=== PATIENT | male | born 1985 ===

== ENCOUNTER 2020-08-19 10:04 | Emergency (ER) | payer OTHER, SELFPAY ==
[2020-08-19 10:53] VITALS: BP 168/100; PULSE 85; RESP 17; TEMP 36.4; O2SAT 97; BMI 31.0
--- NOTE | 2020-08-19 10:55 | XR_ITS ---
EXAMINATION: XR KNEE, RIGHT CLINICAL INFORMATION: Knee pain and buckling. COMPARISON: Radiographs right knee 07/08/2020 TECHNIQUE: Four views of the right knee. FINDINGS: There is a large suprapatellar effusion again seen. Hoffa's fat pad appears normal. There is no fracture, dislocation, destructive process. Bony mineralization is normal. There is no interval joint narrowing or erosive change or chondrocalcinosis. XR/XR knee RT 4V IMPRESSION: Large suprapatellar effusion similar to prior study 07/08/2020. No acute bony abnormality. No interval joint narrowing or destructive process.
--- NOTE | 2020-08-19 11:04 | ED_ITS ---
HPI - Extremity Injury (Lower) General Chief Complaint: Extremity Injury, Lower Stated Complaint: knee pain Time Seen by Provider: 08/19/20 10:55 Source: patient Mode of arrival: ambulatory History of Present Illness HPI Narrative: 34-year-old male presenting to ED complaining right knee pain x1 month. Reports pain worsening with knee giving out multiple times, causing him to lose balance. Reports believes injured knee at work when jumping off object. Denies direct trauma falls or injury to knee, numbness, tingling, weakness MD complaint: knee injury Related Data Home Medications Medication Instructions Recorded Confirmed methotrexate sodium 2.5 mg tablet 2.5 mg PO QWEEK 08/14/20 Previous Rx's Medication Instructions Recorded folic acid 1 mg tablet 1 mg PO DAILY 30 Days #30 tab 08/14/20 acetaminophen [Tylenol Extra 500 mg PO Q6H PRN #20 tab 08/19/20 Strength] diclofenac sodium 2 g TOPICAL QID 7 Days #100 g 08/19/20 Allergies Allergy/AdvReac Type Severity Reaction Status Date / Time penicillin V Allergy Unknown rash Unverified 04/16/20 00:00 Penicillins [PENICILLINS] Allergy Unknown RASH Verified 08/19/20 10:55 Review of Systems Review of Systems: Constitutional: No Weight loss, No Fever, No Chills Musculoskeletal: +joint pain, No Myalgias, No Joint Swelling Skin: No Skin Lesions, No rash Neuro: No Weakness, No Numbness, No Paresthesias Yes all other systems are reviewed and are negative [facility] Past Medical History Attestation statement: The following information was validated with the patient. Medical History (Updated 08/19/20 @ 12:29 by TANIYA Esqueda) No known health problems Social History Social History Advance Directives: No Advance Directives Information Provided: No Physical Exam Vital Signs: Vital Signs: Vital Signs Temp Pulse Resp BP Pulse Ox 08/19/20 10:53 97.5 F 85 17 168/100 H 97 Body Mass Index 31.0 Const: General: cooperative and healthy appearing Orientation/consciousness: patient oriented x3 Limitations: no limitations HENMT: Head: Yes normal to inspection Ears: hearing grossly normal bilaterally General nose exam: Normal external nose present Face and sinus: Yes normal facial exam Eyes: General: appearance normal, both eyes and all related structures EOM: EOMs intact bilaterally Neck: Neck: Yes normal visual inspection Resp: Effort & Inspection: normal respiratory effort Cardio: Peripheral pulses: Peripheral pulses 2+ throughout Skin: Rashes: no rashes Wounds: no wounds Neuro: General: patient oriented x3 Gait exam (Neuro): Normal gait present Extrem: Right lower extremity: normal to inspection and knee Details: tenderness and abnormal ROM ( decreased range of motion secondary to pain) Course Course Course Narrative: -- x-ray showing large suprapatellar effusion similar to prior study in 07/08/2020. 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 Discussed likely need MRI MDM - Extremity Injury (Lower) MDM Narrative Medical decision making narrative: on exam hypertensive, NAD, no deformity.+ttp greater medial aspect with decreased ROM secondary to pain. NV intact. likely meniscal/ligament or tendon injury. Low concern for fracture /dislocation Discharge Plan Discharge Clinical Impression: Knee effusion Qualifiers: Laterality: right Qualified Code(s): M25.461 - Effusion, right knee Patient Disposition: Home, Self-Care Additional Instructions: your x-ray showed a joint effusion, similar to prior x-rays in June You need to follow-up with your primary care doctor and orthopedic, likely need an MRI to evaluate your ligaments/tendon/Meniscus take Tylenol /Motrin at home for pain /swelling diclofenac gel is a topical anti-inflammatory/ pain medication, use as prescribed Ice and elevate your knee Avoid excessive bending / running if pain persists worsens, or becomes unbearable return to the ED Prescriptions: New acetaminophen [Tylenol Extra Strength] 500 mg tablet 500 mg PO Q6H PRN (Reason: pain or fever) Qty: 20 RF: 0 diclofenac sodium 1 % gel 2 g topical QID 7 Days Qty: 100 RF: 0 No Action folic acid 1 mg tablet 1 mg PO DAILY 30 Days Qty: 30 RF: 11 methotrexate sodium 2.5 mg tablet 2.5 mg PO QWEEK RF: 0 Referrals: Nelson Hernández MD [Physician] - 2 days ( you likely need an MRI) Print Language: Latvian
== END 2020-08-19 12:57 | disposition home or self-care (01) ==
PROVIDERS: Emergency Provider Emergency Medicine; PCP Internal Medicine
DX: M25.461 Effusion, right knee (principal); Z79.899 Other long term (current) drug therapy
CPT/HCPCS: 73564; 99282; 99283

== ENCOUNTER → 2020-08-30 09:18 | Outpatient (BNVA) | payer OTHER, SELFPAY | PROVIDERS: PCP Internal Medicine; Referring Provider Internal Medicine; Visit Provider Orthopaedic Surgery | DX: Z76.89 Persons encountering health services in other specified circumstances (principal) ==

== ENCOUNTER 2020-09-05 11:05 | Outpatient (REF) | payer OTHER, SELFPAY ==
--- NOTE | 2020-09-05 11:07 | MR_ITS ---
EXAMINATION: MR KNEE WITHOUT CONTRAST, RIGHT CLINICAL INFORMATION: Right knee pain and swelling COMPARISON: Radiographs 08/19/2020 TECHNIQUE: MRI of the knee without contrast was performed using routine sequences on a high-field scanner. FINDINGS: MENISCI: Medial Meniscus: Mild ill-defined tearing along the periphery of the posterior horn. Otherwise intact. Lateral Meniscus: Intact LIGAMENTS: Cruciate: Complete or near-complete tear/avulsion of the ACL at the femoral insertion. The posterior cruciate ligament appears intact. Collateral: Intact EXTENSOR MECHANISM: Intact ARTICULAR CARTILAGE/BONE: Patellofemoral Compartment: Normal Medial Compartment: Normal Lateral Compartment: Mild impaction bone bruises of the tibia posteriorly and the weightbearing femoral condyle with no chondral defects. JOINT FLUID AND BURSAE: Small joint effusion. MR/MR knee RT wo con IMPRESSION: 1. Complete or near-complete tear/avulsion of the anterior cruciate ligament at its femoral insertion. Mild impaction bone bruises of the lateral tibia posteriorly and the weightbearing aspect of the lateral femoral condyle with a small joint effusion. 2. Mild irregular tearing along the periphery of the posterior horn of the medial meniscus. Menisci appear otherwise intact.
== END 2020-09-05 11:06 | disposition home or self-care (01) ==
LOC: HO.MRI 11:05
PROVIDERS: Visit Provider Orthopaedic Surgery
DX: M25.361 Other instability, right knee (principal); M25.461 Effusion, right knee
CPT/HCPCS: 73721

== ENCOUNTER → 2020-09-24 12:07 | Outpatient (BNVA) | payer OTHER, SELFPAY | PROVIDERS: PCP Internal Medicine; Visit Provider Orthopaedic Surgery | DX: Z76.89 Persons encountering health services in other specified circumstances (principal) ==

== ENCOUNTER → 2020-10-09 15:48 | Outpatient (BNVA) | payer OTHER, SELFPAY | PROVIDERS: PCP Internal Medicine; Referring Provider Internal Medicine; Visit Provider Student in an Organized Health Care Education/Training Program | DX: Z76.89 Persons encountering health services in other specified circumstances (principal) ==

== ENCOUNTER → 2020-10-31 12:20 | Outpatient (BNVA) | payer OTHER, SELFPAY | PROVIDERS: PCP Internal Medicine; Visit Provider Physician Assistant | DX: Z76.89 Persons encountering health services in other specified circumstances (principal) ==

== ENCOUNTER 2020-11-04 12:44 | Outpatient (REF) | payer OTHER, SELFPAY ==
[2020-11-04 13:31] LABS: MANUAL DIFF FLAG NO
[2020-11-04 13:37] LABS: Basophils Percent Auto 0.3 % (0-2); Eosinophils Absolute Auto 0.1 X10*3/uL (0.0-0.4); Eosinophils Percent Auto 0.9 % (0-4); Hematocrit 46.3 % (42-52); Hemoglobin 15.3 g/dl (14.0-18.0); Imm Gran Abs Auto 0.03 X10*3/uL (0.00-0.03); Imm Gran Pct Auto 0.3 % (0.0-0.4); Lymphocytes Absolute Auto 1.8 X10*3/uL (1.2-4.9); Lymphocytes Percent Auto 16.8 % (20-40); Mean Corpuscular Hemoglobin 31.9 pg (27.0-33.0); Mean Corpuscular Volume 96.7 fL (80-98); Mean Platelet Volume 10.1 fL (9.4-12.4); Monocytes Absolute Auto 0.8 X10*3/uL (0.1-1.2); Neutrophils Absolute Auto 7.7 X10*3/uL (2.0-8.3); Neutrophils Percent Auto 73.7 % (45-73); Platelet Count 286 X10*3/uL (160-400); Red Blood Count 4.79 X10*6/uL (4.60-5.80); Red Cell Distribution Width 12.3 % (11.0-16.0); White Blood Count 10.4 X10*3/uL (4.8-10.8)
[2020-11-04 14:03] LABS: Alanine Aminotransferase 18 U/L (0-40); Albumin Level 4.6 g/dL (3.5-5.0); Alkaline Phosphatase 89 U/L (39-117); Anion Gap 12 (12-20); Aspartate Amino Transferase 19 U/L (5-37); Blood Urea Nitrogen 15 mg/dL (9-16); C Reactive Protein 1.45 mg/dL (< or = 0.50); Calcium 9.5 mg/dL (8.4-10.2); Carbon Dioxide 29 mmol/L (22-29); Chloride 103 mmol/L (96-108); Estimated Glomerular Filt Rate > 60; Glucose Random 102 mg/dL (60-115); Potassium 4.7 mmol/l (3.3-5.1); Sodium 139 mmol/L (135-145); Total Protein 7.7 g/dL (6.5-8.0)
[2020-11-04 14:30] LABS: Erythrocyte Sedimentation Rate 4 MM/HR (0-15)
== END 2020-11-04 12:45 | disposition home or self-care (01) ==
LOC: HO.LAB 12:44
PROVIDERS: PCP Internal Medicine; Visit Provider Student in an Organized Health Care Education/Training Program
DX: M05.79 Rheumatoid arthritis with rheumatoid factor of multiple sites without organ or systems involvement (principal); R76.0 Raised antibody titer; Z79.899 Other long term (current) drug therapy
CPT/HCPCS: 36415; 80053; 85025; 85652; 86140

== ENCOUNTER 2020-11-07 06:08 | Day surgery (SDC) | payer OTHER, SELFPAY ==
[2020-11-01 13:33] VITALS: BMI 30.2
--- NOTE | 2020-11-06 10:22 | HO.ANESPROP2 ---
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 Father No problems noted. Surgical History Surgical History Hx of exploratory laparotomy S/P hardware removal S/P ORIF (open reduction internal fixation) fracture Social History Social History Are you a primary wild animal caretaker to a significant other at home: No Do you presently have visiting nurse or other home services: No Smoking Status: Never smoker Use of substances other than those prescribed or required for medical reasons: No Have you been hit, kicked, punched, or otherwise hurt by someone within the past year? 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 Meds Allergies Allergy/AdvReac Type Severity Reaction Status Date / Time Penicillins [PENICILLINS] Allergy Unknown RASH Verified 10/31/20 12:38 morphine AdvReac Itching Verified 11/07/20 06:29 Home Medications Medication Instructions Recorded Confirmed Type methotrexate sodium 2.5 mg tablet 2.5 mg PO QWEEK 08/14/20 11/01/20 History Exam Exam Date and Time: November 06, 2020 1022 Height,Weight and Vital Signs: Height 5 ft 9 in Weight 92.986 kg Assessment and Plan Assessment Anesthesia Assessment: Chart Reviewed Documented by User: Romeo Jackson MD 11/07/20 08:43 FORMERLY [facility], [facility] Past Medical History Medical History Arthritis Asthma GERD (gastroesophageal reflux disease) History of febrile seizure 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 Father No problems noted. Surgical History Surgical History Hx of exploratory laparotomy S/P hardware removal S/P ORIF (open reduction internal fixation) fracture Social History Social History Are you a primary wild animal caretaker to a significant other at home: No Do you presently have visiting nurse or other home services: No Smoking Status: Never smoker Use of substances other than those prescribed or required for medical reasons: No Have you been hit, kicked, punched, or otherwise hurt by someone within the past year? 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 Meds Allergies Allergy/AdvReac Type Severity Reaction Status Date / Time Penicillins [PENICILLINS] Allergy Unknown RASH Verified 10/31/20 12:38 morphine AdvReac Itching Verified 11/07/20 06:29 Home Medications Medication Instructions Recorded Confirmed Type methotrexate sodium 2.5 mg tablet 2.5 mg PO QWEEK 08/14/20 11/01/20 History Exam Airway Mallampati Class: I TM Dist: >3cm Neck ROM: Full Loose/Missing/Broken Teeth: No Heart: RRR Lungs: NL Other: AO Assessment and Plan Assessment Anesthesia Assessment: Anesthesia Plan Discussed and Chart Reviewed Final Anesthetic Review NPO: Yes ASA Class: II Final Preanesthetic Review: No Changes in Pt Med Stat, Meds/Allgs Chart Reviewed, Consent Obtained/Reviewed and Anes Risks/Benef Reviewed Patient Risk: Intermediate Procedure Risk: Low Anesthetic Plan Anesthetic Plan: GA and Regional Block Disposition: Standard PACU
[2020-11-07 06:18] VITALS: BP 128/89; PULSE 75; RESP 18; TEMP 36.1; O2SAT 98
[2020-11-07] MEDS: ceFAZolin Sodium/Dextrose,Iso 2 GM/50 ML PIGGYBACK IV (06:51)
[2020-11-07] MEDS: Lactated Ringers 1,000 ML 100 ML IVCONT (06:51)
--- NOTE | 2020-11-07 07:34 | MHC.SHP ---
Pre-Procedural Eval Section A The patient is an INPATIENT: No Changes since office visit: No Cold of Flu in the past 2 weeks, No New Medical Problems, No Changes in Medication and No Patient answered all questions The History & Physical has been completed within 30 days and I have reviewed it.: Yes Section B Chief Complaint: internal derangement of right knee Allergies: Allergies Allergy/AdvReac Type Severity Reaction Status Date / Time Penicillins [PENICILLINS] Allergy Unknown RASH Verified 10/31/20 12:38 morphine AdvReac Itching Verified 11/07/20 06:29 Plan I have reviewed the history and physical and performed a pertinent physical examination on my patient. No changes have occurred unless specified.
[2020-11-07 09:35] VITALS: BP 130/87; PULSE 86; RESP 16; TEMP 36.1; O2SAT 99
--- NOTE | 2020-11-07 09:37 | PM.PRCOR ---
Brief Operative Note Date of procedure: 11/07/20 Pre-op diagnosis: ACL DEFICIENT RIGHT KNEE Post-op diagnosis: same Procedure: RIGHT ACL RECONSTRUCTION WITH ALLOGRAFT Anesthesia: GLMA and regional Surgeon: Nelson Hernández Power Plant Operator Apprentice: Jose Peña Estimated blood loss (mL): 0 Condition: stable Disposition: PACU
[2020-11-07 09:40] VITALS: BP 123/84; PULSE 77; RESP 18; O2SAT 97
[2020-11-07 09:45] VITALS: BP 124/87; PULSE 80; RESP 18; O2SAT 98
[2020-11-07 09:50] VITALS: BP 128/83; PULSE 72; RESP 18; O2SAT 100
[2020-11-07] MEDS: Acetaminophen 325 MG TABLET 650 MG PO (09:56)
[2020-11-07 10:00] VITALS: BP 128/83; PULSE 65; RESP 18; TEMP 36.2; O2SAT 100
--- NOTE | 2020-11-07 10:34 | HO.POSTANES ---
Post Anesthesia Evaluation Post Anesthesia Evaluation Vital Signs: Vital Signs Temp Pulse Resp BP Pulse Ox 11/07/20 10:00 97.2 F 65 18 128/83 100 11/07/20 09:50 72 18 128/83 100 11/07/20 09:45 80 18 124/87 98 11/07/20 09:40 77 18 123/84 97 11/07/20 09:35 96.9 F 86 16 130/87 99 11/07/20 06:18 97.0 F 75 18 128/89 98 Anesthesia: Nerve Block and General LMA Mental Status: Awake Pain Control: Satisfactory Nausea/Vomiting: None Hydration: Adequate Anesthesia-Related Issues: No Anes. Related Issues
--- NOTE | 2020-11-12 10:36 | OP_ITS ---
SURGEON: Nelson Hernández MD PREOPERATIVE DIAGNOSIS: Anterior cruciate ligament deficient, right knee. POSTOPERATIVE DIAGNOSIS: Anterior cruciate ligament deficient, right knee. PROCEDURE PERFORMED: Right ACL reconstruction with bone patellar tendon allograft. ESTIMATED BLOOD LOSS: COMPLICATIONS: ANESTHESIA: ASSISTANTS: TANIYA Urrutia. SPECIMENS: CLINICAL NOTE: This gentleman had suffered an injury to his knee and subsequently had ongoing instability related to an ACL tear. Therefore, after explaining the risks, benefits, and alternatives and answering all the questions, it was mutually agreed upon to carry out the following procedure. MOTION: Full range of motion. STABILITY: Positive Richard's and pivot shift. Collateral ligaments intact. DESCRIPTION OF PROCEDURE: PREPARATION: GA, standard technique, tourniquet to 300 mmHg for 39 minutes. SURGICAL TIME-OUT: The patient was identified, procedure confirmed, site confirmed. Medical analogy and history reviewed. Preoperative antibiotics were given. Standard DVT prophylaxis was in place. All other items were discussed and agreed upon. INCISION: Superolateral, inferolateral, inferomedial, stab incision, proximal, medial, tibial incision for tibial tunnel and graft insertion. SYNOVIUM: Normal. SYNOVIAL FLUID: Clear. MEDIAL COMPARTMENT: Medial meniscus, tibial and femoral articular surfaces, popliteus tendon all stable and intact. LATERAL COMPARTMENT: Lateral meniscus, tibial and femoral articular surfaces, popliteus tendon all stable and intact. ANTERIOR COMPARTMENT: Medial and lateral gutters clear. Suprapatellar pouch clear. Patella and femoral sulcus, articular surfaces intact. INTERCONDYLAR NOTCH: The ACL was scarred back to the PCL. Using a combination of the Ultra-Cut and the ArthroCare wand, the remnant of the ACL was removed. The PCL was identified. The [id number] position was cleared until it was easily identified posteriorly. Using the Arthrex tibial guide in standard fashion, the tibial tunnel was established without any incident. It was rasped and cleaned of soft tissue and bone. Simultaneous to the tibial tunnel, preparation of the graft was prepared with 102 mm graft with one in 30 mm and other one 27 mm drill holes were made. The longer head had Maxon sutures for the femoral side and Ti-Cron sutures were placed on the opposite side and then the graft was protected. Turning our attention back to the knee itself, the [id number] position was identified at the approximate 9:30 position and the guidewire was drilled out the anterolateral cortex. The 10 mm headed reamer was then used over the guidewire. A footprint was made with good posterior wall, it was then reamed out to a 35 mm depth. The notch was then made. The bony fragments were all removed. The graft was brought up on the table and the Maxon suture was placed through the eyes of Beath needle. The graft was then transferred through the tibial tunnel across the PCL into the femoral tunnel without incident. Turning our attention to the interference screw, the Nitinol wire was used through the inferomedial portal. In a standard fashion, an 8 x 25 mm BioScrew was inserted. With the graft in tension, it was cycled a number of times with the knee flexed approximately 15 degrees. With grafted tension, an 8 x 25 mm BioScrew was inserted with excellent purchase. The knee was then easily placed through full range of motion, had negative Richard and pivot shift, and therefore proceeded to closure. The tourniquet was let down. Total tourniquet time 39 minutes. The incisions were approximated using interrupted 2-0 Dexon. Skin was closed with Dermabond, Steri-Strips, and sterile dressing. The knee was placed in a knee brace. The patient's anesthesia was then reversed. They were transferred to the room bed and then taken to recovery room in good condition. Preoperatively, they also received a regional block femoral as well as saphenous. There was no blood loss, no complications. MD STUART Gage/CECILIOL / [id number]
== END 2020-11-07 10:55 | disposition home or self-care (01) ==
PROVIDERS: PCP Internal Medicine; Visit Provider Orthopaedic Surgery
PROC: (CPT 29888; principal; 2020-11-07 07:30)
DX: S83.511A Sprain of anterior cruciate ligament of right knee, initial encounter (principal); X58.XXXA Exposure to other specified factors, initial encounter; Y93.9 Activity, unspecified; Y92.9 Unspecified place or not applicable; Y99.8 Other external cause status; D68.62 Lupus anticoagulant syndrome; M06.9 Rheumatoid arthritis, unspecified; M19.90 Unspecified osteoarthritis, unspecified site; J45.909 Unspecified asthma, uncomplicated; Z79.899 Other long term (current) drug therapy; Z88.8 Allergy status to other drugs, medicaments and biological substances
CPT/HCPCS: 29888; C1713; C1763; C1769; J0690; J1100; J2250; J2405; J3010

== ENCOUNTER → 2020-11-20 13:16 | Outpatient (BNVA) | payer OTHER, SELFPAY | PROVIDERS: PCP Internal Medicine; Visit Provider Physician Assistant | DX: Z76.89 Persons encountering health services in other specified circumstances (principal) ==

== ENCOUNTER → 2020-12-24 13:58 | Outpatient (BNVA) | payer OTHER, SELFPAY | PROVIDERS: PCP Internal Medicine; Visit Provider Orthopaedic Surgery ==

== ENCOUNTER → 2021-01-24 13:44 | Outpatient (BNVA) | payer OTHER, SELFPAY | PROVIDERS: PCP Internal Medicine; Visit Provider Student in an Organized Health Care Education/Training Program ==

== ENCOUNTER → 2021-02-04 14:30 | Outpatient (BNVA) | payer OTHER, SELFPAY | PROVIDERS: PCP Internal Medicine; Visit Provider Orthopaedic Surgery ==

== ENCOUNTER 2021-02-20 16:00 | Outpatient (RCR) | payer OTHER, MEDICAID, SELFPAY ==
--- NOTE | 2020-11-11 17:04 | MHC.PT.EP ---
[facility] [place] Office [place] Office [place] Office [address] Celeste [address] [phone] F: [phone] F: [phone] F: [phone] F: [phone] Physical Therapy Plan of Care Date of Evaluation: 11/11/20 Date of Surgery: 11/07/20 Diagnosis: INTERNAL DERANGEMENT R KNEE. RIGHT ACL RECONSTRUCTION WITH ALLOGRAFT PER DR CHUN ON 11/07/20. Assessment: Pt IS 35 YO M REFERRED TO PT FROM [facility] (G[facility]AHAN) S/P R ACL RECONSTRUCTION WITH ALLOGRAFT PER DR CHUN ON 10/28/19 (Pt HAD INJURED KNEE MONTHS EARLIER GETTING OUT OF TRUCK AT WORK). PRESENTS WITH POOR KNEE AND ANKLE ROM, POOR GT PATTERN (NWB WITH CRUTCHES), SIGNIF LE SWELLING ON R, DECREASED SENSATION TOP OF R FOOT WITH C/O LOWER LEG PARESTHESIA, PAIN AND LIMITED LE STRENGTH. 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 HAS PO FU WITH ORTHO ON WEDNESDAY (11/14/20). SHOULD BENEFIT FROM PT TO ADDRESS THESE ISSUES Frequency and Duration: The patient will be seen 3X/WK RECOMMENDED BUT NEEDS 2X/WK FOR TRANSPORT Short Term Goals: AT 4 WKS: 1.R KNEE ROM 0-115 2. HEP BEGUN (PER PROTOCOL) 3. DECREASED R LE SWELLING NOTED 4. GOOD QUAD CONTRACTION NOTED Visual Lead Goals: AT 12 WKS 1. FULL ROM R KNEE 2. GOOD GT PATTERN WITHOUT AD/BRACE 3. PAIN R KNEE AT WORST 2/10 WITH ADLS 4. I HEP WITH DC EX PLAN 5. ?RTW PER MD ORDERS Treatment Plan: Modalities to reduce pain, spasms and effusion. Manual therapy to restore motion and function. Therapeutic exercise to improve strength and flexibility. Neuromuscular re-education for posture and balance. Therapeutic activities to return to functional activities of daily living. Electronically signed by: ELIEZER PORTER PT Please sign and return to therapist. Thank you for your referral.
--- NOTE | 2021-03-04 10:40 | MHC.PT.DC ---
[facility] [place] Office [place] Office [place] Office [address] Jacki Celeste [address] [phone] F: [phone] F: [phone] F: [phone] F: [phone] Physical Therapy Discharge Report Diagnosis: INTERNAL DERANGEMENT R KNEE. RIGHT ACL RECONSTRUCTION WITH ALLOGRAFT PER DR HCUN ON 11/07/20. Date of Surgery: 11/07/20 Date of Evaluation: 11/11/20 Date of Discharge: 03/04/21 Treatments to Date: 9 Cancellations to Date: 6 No Shows to Date: 5 Discharge Status: Visit Non-compliance Discharge Summary: The patient has had poor compliance with attendance and recommendations from PT. He was still reporting high levels of knee pain and presents with significant quadriceps weakness. He has not followed up with any further appointments in approximately two weeks. He is discharged from this physical therapy plan of care at this time. Electronically signed by: Vandana Fonseca PT, DPT Please sign and return to therapist. Thank you for your referral.
== END 2021-03-04 10:40 | disposition other institution (70) ==
LOC: HO.PT 16:00
PROVIDERS: Visit Provider Orthopaedic Surgery
DX: M23.8X1 Other internal derangements of right knee (principal)
CPT/HCPCS: 97110; 97112; 97116; 97162; 97530; 97535

== ENCOUNTER → 2021-04-01 10:10 | Outpatient (BNVA) | payer OTHER, SELFPAY | PROVIDERS: Visit Provider Orthopaedic Surgery ==

== ENCOUNTER 2021-07-02 14:17 | Outpatient (REF) | payer OTHER, MEDICAID, SELFPAY ==
[2021-07-02 15:53] LABS: MANUAL DIFF FLAG NO
[2021-07-02 15:59] LABS: Basophils Percent Auto 0.5 % (0-2); Eosinophils Absolute Auto 0.1 X10*3/uL (0.0-0.4); Eosinophils Percent Auto 1.1 % (0-4); Hematocrit 43.4 % (42-52); Hemoglobin 14.8 g/dl (14.0-18.0); Imm Gran Abs Auto 0.03 X10*3/uL (0.00-0.03); Imm Gran Pct Auto 0.4 % (0.0-0.4); Lymphocytes Absolute Auto 1.7 X10*3/uL (1.2-4.9); Lymphocytes Percent Auto 21.7 % (20-40); Mean Corpuscular HGB Conc 34.1 g/dl (31.0-36.0); Mean Corpuscular Hemoglobin 33.5 pg (27.0-33.0); Mean Corpuscular Volume 98.2 fL (80-98); Mean Platelet Volume 9.7 fL (9.4-12.4); Monocytes Absolute Auto 0.9 X10*3/uL (0.1-1.2); Monocytes Percent Auto 11.1 % (2-11); Neutrophils Absolute Auto 5.2 X10*3/uL (2.0-8.3); Neutrophils Percent Auto 65.2 % (45-73); Platelet Count 266 X10*3/uL (160-400); Red Blood Count 4.42 X10*6/uL (4.60-5.80); Red Cell Distribution Width 13.2 % (11.0-16.0)
[2021-07-02 16:10] LABS: Alanine Aminotransferase 28 U/L (0-40); Albumin Level 4.4 g/dL (3.5-5.0); Alkaline Phosphatase 74 U/L (39-117); Anion Gap 13 (12-20); Aspartate Amino Transferase 24 U/L (5-37); Bilirubin Total 0.7 mg/dL (0.0-1.0); Blood Urea Nitrogen 14 mg/dL (9-16); C Reactive Protein 0.61 mg/dL (< or = 0.50); Calcium 9.9 mg/dL (8.4-10.2); Carbon Dioxide 25 mmol/L (22-29); Chloride 108 mmol/L (96-108); Estimated Glomerular Filt Rate > 60; Glucose Random 78 mg/dL (60-115); Potassium 4.5 mmol/L (3.3-5.1); Sodium 141 mmol/L (135-145); Total Protein 7.3 g/dL (6.5-8.0)
[2021-07-02 17:20] LABS: Erythrocyte Sedimentation Rate 6 MM/HR (0-15)
[2021-07-03 04:22] LABS: HBS Num1 > 1000.00 mIU/mL (0-7.99); HBc Num1 0.08 S/CO (0.00-0.79); HBsAGNum1 0.17 S/CO (0.00-0.99); Hepatitis B Core Antibody Nonreactive (Nonreactive); Hepatitis B Surface Antigen Negative (Negative); ~HepC Num1 0.15 S/CO (0.00-0.79); ~Hepatitis B Surface Antibody REACTIVE (Nonreactive); ~Hepatitis C Antibody Nonreactive (Nonreactive)
[2021-07-04 04:52] LABS: Hepatitis A Antibody IgM 0.17 Index (0-0.79); ~Hepatitis A Antibody IgM Nonreactive (Nonreactive)
[2021-07-05 14:55] LABS: TS Negative Control Passed; TS Panel A 0; TS Panel B 0; TS Positive Control Passed; TSpotTB Negative (SeeBelow)
== END 2021-07-02 14:18 | disposition home or self-care (01) ==
LOC: HO.LAB 14:17
PROVIDERS: PCP Internal Medicine; Visit Provider Nurse Practitioner Family
DX: M05.79 Rheumatoid arthritis with rheumatoid factor of multiple sites without organ or systems involvement (principal); Z79.899 Other long term (current) drug therapy
CPT/HCPCS: 36415; 80053; 85025; 85652; 86140; 86481; 86704; 86706; 86709; 86803; 87340

== ENCOUNTER 2021-09-22 13:27 | Outpatient (REF) | payer MEDICAID, SELFPAY ==
[2021-09-22 13:42] LABS: MANUAL DIFF FLAG NO
[2021-09-22 13:56] LABS: Basophils Percent Auto 0.3 % (0-2); Eosinophils Absolute Auto 0.1 X10*3/uL (0.0-0.4); Eosinophils Percent Auto 0.7 % (0-4); Hematocrit 47.1 % (42.0-52.0); Hemoglobin 15.6 g/dl (14.0-18.0); Imm Gran Abs Auto 0.03 X10*3/uL (0.00-0.03); Imm Gran Pct Auto 0.3 % (0.0-0.4); Lymphocytes Absolute Auto 1.6 X10*3/uL (1.2-4.9); Lymphocytes Percent Auto 17.7 % (20-40); Mean Corpuscular HGB Conc 33.1 g/dl (31.0-36.0); Mean Corpuscular Hemoglobin 32.8 pg (27.0-33.0); Mean Corpuscular Volume 98.9 fL (80.0-98.0); Mean Platelet Volume 9.4 fL (9.4-12.4); Monocytes Absolute Auto 0.6 X10*3/uL (0.1-1.2); Monocytes Percent Auto 6.5 % (2-11); Neutrophils Absolute Auto 6.5 x10*3/uL (2.0-8.3); Neutrophils Percent Auto 74.5 % (45-73); Platelet Count 292 X10*3/uL (160-400); Red Blood Count 4.76 X10*6/uL (4.60-5.80); Red Cell Distribution Width 13.5 % (11.0-16.0); White Blood Count 8.7 X10*3/uL (4.8-10.8)
[2021-09-22 14:44] LABS: Erythrocyte Sedimentation Rate 7 MM/HR (0-15)
[2021-09-22 14:48] LABS: Alanine Aminotransferase 24 U/L (0-40); Albumin Level 4.2 g/dL (3.5-5.0); Alkaline Phosphatase 82 U/L (39-117); Anion Gap 12 (12-20); Aspartate Amino Transferase 21 U/L (5-37); Bilirubin Total 0.8 mg/dL (0.0-1.0); Blood Urea Nitrogen 16 mg/dL (9-16); C Reactive Protein 0.32 mg/dL (< or = 0.50); Calcium 9.6 mg/dL (8.4-10.2); Carbon Dioxide 26 mmol/L (22-29); Chloride 105 mmol/L (96-108); Estimated Glomerular Filt Rate > 60; Glucose Random 113 mg/dL (60-115); Potassium 4.7 mmol/L (3.3-5.1); Sodium 138 mmol/L (135-145); Total Protein 7.4 g/dL (6.5-8.0)
== END 2021-09-22 13:28 | disposition home or self-care (01) ==
LOC: HO.LAB 13:27
PROVIDERS: Student in an Organized Health Care Education/Training Program; PCP Internal Medicine; Visit Provider Nurse Practitioner Family
DX: M05.79 Rheumatoid arthritis with rheumatoid factor of multiple sites without organ or systems involvement (principal)
CPT/HCPCS: 36415; 80053; 85025; 85652; 86140

== ENCOUNTER → 2021-10-14 14:21 | Outpatient (BNVA) | payer OTHER, MEDICAID, SELFPAY | PROVIDERS: PCP Internal Medicine; Visit Provider Nurse Practitioner Family | DX: M05.79 Rheumatoid arthritis with rheumatoid factor of multiple sites without organ or systems involvement (principal); R07.9 Chest pain, unspecified; Z79.899 Other long term (current) drug therapy | CPT/HCPCS: 99212 ==

== ENCOUNTER 2021-10-14 15:23 | Emergency (ER) | payer OTHER, MEDICAID, SELFPAY ==
--- NOTE | ~2021-10-14 | XR_ITS ---
EXAMINATION: XR CHEST CLINICAL INFORMATION: Chest pain. COMPARISON: Chest radiograph dated from 05/03/2019. TECHNIQUE: PA view of the chest was obtained. FINDINGS: No significant abnormality is noted involving the heart, lungs, mediastinum, bony thorax or soft tissues. XR/XR chest 1V IMPRESSION: Unremarkable examination.
[2021-10-14 16:16] VITALS: BP 135/95; RESP 16; TEMP 36.8; O2SAT 99; BMI 36.9
--- NOTE | 2021-10-14 16:21 | ECG_ITS ---
Test Reason : cp Blood Pressure : / mmHG Vent. Rate : 067 BPM Atrial Rate : 067 BPM P-R Int : 160 ms QRS Dur : 096 ms QT Int : 386 ms P-R-T Axes : 056 -22 018 degrees QTc Int : 407 ms Normal sinus rhythm Normal ECG When compared with ECG of 04-JAN-2019 12:40, No significant change was found Referred By: Sunni Mccall Electronically Signed By:DAISY HERNANDEZ
[2021-10-14 16:38] LABS: MANUAL DIFF FLAG NO
[2021-10-14 16:41] LABS: Basophils Percent Auto 0.3 % (0-2); Eosinophils Absolute Auto 0.1 X10*3/uL (0.0-0.4); Eosinophils Percent Auto 0.8 % (0-4); Hematocrit 44.1 % (42.0-52.0); Hemoglobin 15.1 g/dl (14.0-18.0); Imm Gran Abs Auto 0.04 X10*3/uL (0.00-0.03); Imm Gran Pct Auto 0.4 % (0.0-0.4); Lymphocytes Absolute Auto 2.2 X10*3/uL (1.2-4.9); Lymphocytes Percent Auto 23.8 % (20-40); Mean Corpuscular HGB Conc 34.2 g/dl (31.0-36.0); Mean Corpuscular Hemoglobin 33.3 pg (27.0-33.0); Mean Corpuscular Volume 97.1 fL (80.0-98.0); Mean Platelet Volume 9.3 fL (9.4-12.4); Monocytes Absolute Auto 0.8 X10*3/uL (0.1-1.2); Monocytes Percent Auto 8.7 % (2-11); Platelet Count 347 X10*3/uL (160-400); Red Blood Count 4.54 X10*6/uL (4.60-5.80); Red Cell Distribution Width 12.8 % (11.0-16.0); White Blood Count 9.1 X10*3/uL (4.8-10.8)
[2021-10-14 16:59] LABS: Anion Gap 8 (12-20); Blood Urea Nitrogen 16 mg/dL (9-16); Calcium 9.7 mg/dL (8.4-10.2); Carbon Dioxide 29 mmol/L (22-29); Chloride 105 mmol/L (96-108); Creatinine Clr Calc Pharmacy 133.5; Estimated Glomerular Filt Rate > 60; Glucose Random 90 mg/dL (60-115); Potassium 4.1 mmol/L (3.3-5.1); Sodium 138 mmol/L (135-145)
[2021-10-14 17:00] LABS: Troponin-I High Sensitivity < 3.5 ng/L (<3.5-35.0)
== END 2021-10-14 21:44 | disposition left against medical advice (07) ==
PROVIDERS: Emergency Medicine; Emergency Provider Emergency Medicine; PCP Internal Medicine
DX: R07.9 Chest pain, unspecified (principal)
CPT/HCPCS: 36415; 71045; 80048; 84484; 85025; 93005; 99283

== ENCOUNTER 2021-12-03 09:16 | Emergency (ER) | payer MEDICAID, SELFPAY ==
[2021-12-03 09:20] VITALS: BP 131/93; PULSE 89; RESP 19; TEMP 36.6; O2SAT 98; BMI 30.2
--- NOTE | 2021-12-03 11:40 | ED_ITS ---
HPI - General Adult General Chief complaint: General Medical Stated complaint: BODY SWELLING CHEST PAIN Time Seen by Provider: 12/03/21 11:40 Source: patient, family (Spouse) and aerial photograph interpreter Mode of arrival: ambulatory Limitations: no limitations History of Present Illness HPI narrative: 36-year-old came in with his for evaluation of generalized body swelling and joint pain. 36-year-old male known history of juvenile rheumatoid arthritis, patient managing his pain with only Tylenol, patient has been complaining of generalized body swelling especially over the joints, with severe joint pains with, patient otherwise decline fever or chills, no headache, no chest pain, no abdominal pain. The patient also declined gaining significant amount of weight. Related Data Previous Rx's Medication Instructions Recorded acetaminophen 500 mg tablet 500 mg PO Q6H PRN #20 tab 08/19/20 (Tylenol Extra Strength) diclofenac sodium 1 % topical gel 2 g TOPICAL QID 7 Days #100 g 08/19/20 pantoprazole 40 mg tablet,delayed 40 mg PO DAILY #30 tab 01/13/21 release tramadol 50 mg tablet 50 mg PO BID PRN #60 tab 01/24/21 albuterol sulfate 90 mcg/actuation 2 puff PO Q6H PRN 30 Days #8.5 g 02/19/21 aerosol inhaler prednisone 10 mg tablet 10 mg PO DAILY #40 tab 07/10/21 folic acid 1 mg tablet 1 mg PO DAILY 30 Days #30 tab 09/11/21 methotrexate sodium 2.5 mg tablet 20 mg PO QWEEK #32 tab 10/15/21 oxycodone 5 mg tablet 5 mg PO BID PRN #10 tab 12/03/21 Allergies Allergy/AdvReac Type Severity Reaction Status Date / Time Penicillins [PENICILLINS] Allergy Unknown RASH Verified 10/14/21 14:42 morphine AdvReac Itching Verified 10/14/21 14:42 Review of Systems Review of Systems: All other systems are reviewed and are negative Constitutional: Reports as per HPI and Reports no additional constitutional c omplaints Eyes: Reports as per HPI and Reports no additional eye complaints Reports system reviewed and no additional complaints, except as documented Cardiovascular: Reports as per HPI and Reports no additional cardiovascular complaints Respiratory: Reports as per HPI and Reports no additional respiratory complaints Gastrointestinal: Reports as per HPI and Reports no additional gastrointestinal complaints Genitourinary: Reports no additional female genitourinary complaints Musculoskeletal: Reports no additional musculoskeletal complaints Skin/Breast: Reports system reviewed and no additional complaints, except as docu Psychiatric: Reports no additional psychiatric complaints Endocrine: Reports no additional endocrine complaints Hematologic/Lymphatic: Reports no additional hematologic/lymphatic complaints Allergic/Immunologic: Reports no additional allergic/immunologic complaints Reports system reviewed and no additional complaints, except as documented and Reports Abnormal speech present [facility] Past Medical History Medical History Arthritis Asthma GERD (gastroesophageal reflux disease) 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 Father No problems noted. 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 Blood pressure normal. Heart rate normal. Respiration rate normal. Temperature normal. Oxygen saturation normal. Appearance: Alert. Oriented X3. No acute distress. Head: Normal external exam. Normocephalic. Atraumatic. No Webb signs noted. No raccoon eyes noted Eyes: PERRLA. EOMI. Conjunctiva and sclera normal. Eyelids normal. ENT: TM's Normal. Pharynx normal. Uvula midline. Moist mucous membranes. No trismus noted. No drooling noted. No muffled voice noted. Neck: Normal inspection. Neck supple. FROM. No adenopathy. Thyroid Normal. No m eningeal signs. No neck mass noted. CVS: Normal heart rate and rhythm. Heart sound normal. No murmurs noted. Pulses normal throughout. Respiratory: No respiratory distress. Painless inspiration. Breath sounds normal. No wheezes/rales/rhonchi noted. Chest nontender. No accessory muscle usage noted or decreased air movement noted. Abdomen: Soft and nontender. Bowel sounds normal in all 4 quadrants. No distention noted. No organomegaly noted. No visible injury noted. Back: No CVA tenderness. Full range of motion noted. Skin: Skin warm and dry. Normal skin color. Normal skin turgor. No r ashes/lesions/lacerations noted. Extremities: No lower extremity edema. Extremities exhibit normal range of motion. Extremities nontender. Neuro: Oriented X 3. Cranial nerve exam: II-XII are grossly intact No motor deficit. No sensory deficit. Reflexes normal. Course Course Course Narrative: Assessment and plan. 36-year-old male came in for generalized body and joint pain with swelling, p atient has unremarkable labs. No acute emergency medical intervention is needed at this point, will prescribe few pills of oxycodone p.r.n. for pain and follow up with his PCP. Medical Decision Making Lab Data Lab results reviewed: Yes I reviewed the patient's lab results. Result diagrams: 12/03/21 12:42 12/03/21 12:42 Labs: Lab Results 12/03/21 12/03/21 12/03/21 Range/Units 12:42 12:42 12:42 WBC 9.1 (4.8-10.8) X10*3/uL RBC 4.78 (4.60-5.80) X10*6/uL Hgb 15.8 (14.0-18.0) g/dl Hct 47.4 (42.0-52.0) % MCV 99.2 H (80.0-98.0) fL MCH 33.1 H (27.0-33.0) pg MCHC 33.3 (31.0-36.0) g/dl RDW 13.0 (11.0-16.0) % Plt Count 334 (160-400) X10*3/uL MPV 9.6 (9.4-12.4) fL Immature Gran % (Auto) 0.2 (0.0-0.4) % Neut % (Auto) 71.2 (45-73) % Lymph % (Auto) 19.8 L (20-40) % Creek % (Auto) 7.6 (2-11) % Eos % (Auto) 0.6 (0-4) % Baso % (Auto) 0.6 (0-2) % Lymph # (Auto) 1.8 (1.2-4.9) X10*3/uL Creek # (Auto) 0.7 (0.1-1.2) X10*3/uL Eos # (Auto) 0.1 (0.0-0.4) X10*3/uL Baso # (Auto) 0.1 (0.0-0.2) X10*3/uL Abs Immat Gran (auto) 0.02 (0.00-0.03) X10*3/uL Absolute Neuts (auto) 6.5 (2.0-8.3) x10*3/uL Absolute Nucleated RBC 0.000 (0.0-0.012) X10*3/uL Nucleated RBC % (auto) 0.0 (0.0-0.2) /100WBC Sodium 140 (135-145) mmol/L Potassium 4.6 (3.3-5.1) mmol/L Chloride 107 (96-108) mmol/L Carbon Dioxide 28 (22-29) mmol/L Anion Gap 10 L (12-20) Creatinine 0.98 (0.5-1.4) mg/dL Estim Creat Clear Calc 115.0 Estimated GFR > 60 Random Glucose 99 (60-115) mg/dL Total Bilirubin 0.7 (0.0-1.0) mg/dL Direct Bilirubin 0.3 (0.0-0.5) mg/dL AST 21 (5-37) U/L ALT 19 (0-40) U/L Alkaline Phosphatase 83 (39-117) U/L B-Natriuretic Peptide < 10 (<100) pg/mL Total Protein 7.6 (6.5-8.0) g/dL Albumin 4.3 (3.5-5.0) g/dL Lipase 56 (8-78) U/L Discharge Plan Discharge Clinical Impression: Rheumatoid arthritis, Arthralgia Patient Disposition: Home, Self-Care Instructions: Arthralgia (ED) Prescriptions: New oxycodone 5 mg tablet 5 mg PO BID PRN (Reason: pain) Qty: 10 0RF No Action pantoprazole 40 mg tablet,delayed release (DR/EC) 40 mg PO DAILY Qty: 30 6RF albuterol sulfate 90 mcg/actuation HFA aerosol inhaler 2 puff PO Q6H PRN (Reason: shortness of breath or wheezing) 30 Days Qty: 8.5 6RF folic acid 1 mg tablet 1 mg PO DAILY 30 Days Qty: 30 11RF acetaminophen [Tylenol Extra Strength] 500 mg tablet 500 mg PO Q6H PRN (Reason: pain or fever) Qty: 20 0RF diclofenac sodium 1 % gel 2 g topical QID 7 Days Qty: 100 0RF Rx Instructions: apply to right knee tramadol 50 mg tablet 50 mg PO BID PRN (Reason: pain) Qty: 60 3RF prednisone 10 mg tablet 10 mg PO DAILY Qty: 40 0RF Rx Instructions: Take 40mg by mouth for four days, then 30mg by mouth for four days, then 20mg by mouth for four days, then 10mg by mouth for four days, then stop. methotrexate sodium 2.5 mg tablet 20 mg PO QWEEK Qty: 32 0RF Rx Instructions: take 8 tabs by mouth once a week. Referrals: Hayde Barnhart MD [Primary Care Provider] - 2 days
[2021-12-03 12:48] LABS: MANUAL DIFF FLAG NO
[2021-12-03 12:52] LABS: Basophils Absolute Auto 0.1 X10*3/uL (0.0-0.2); Basophils Percent Auto 0.6 % (0-2); Eosinophils Absolute Auto 0.1 X10*3/uL (0.0-0.4); Eosinophils Percent Auto 0.6 % (0-4); Hematocrit 47.4 % (42.0-52.0); Hemoglobin 15.8 g/dl (14.0-18.0); Imm Gran Abs Auto 0.02 X10*3/uL (0.00-0.03); Imm Gran Pct Auto 0.2 % (0.0-0.4); Lymphocytes Absolute Auto 1.8 X10*3/uL (1.2-4.9); Lymphocytes Percent Auto 19.8 % (20-40); Mean Corpuscular HGB Conc 33.3 g/dl (31.0-36.0); Mean Corpuscular Hemoglobin 33.1 pg (27.0-33.0); Mean Corpuscular Volume 99.2 fL (80.0-98.0); Mean Platelet Volume 9.6 fL (9.4-12.4); Monocytes Absolute Auto 0.7 X10*3/uL (0.1-1.2); Monocytes Percent Auto 7.6 % (2-11); Neutrophils Absolute Auto 6.5 x10*3/uL (2.0-8.3); Neutrophils Percent Auto 71.2 % (45-73); Platelet Count 334 X10*3/uL (160-400); Red Blood Count 4.78 X10*6/uL (4.60-5.80); White Blood Count 9.1 X10*3/uL (4.8-10.8)
[2021-12-03 13:19] LABS: B Type Natriuretic Peptide < 10 pg/mL (<100)
[2021-12-03 13:21] LABS: Alanine Aminotransferase 19 U/L (0-40); Albumin Level 4.3 g/dL (3.5-5.0); Alkaline Phosphatase 83 U/L (39-117); Anion Gap 10 (12-20); Aspartate Amino Transferase 21 U/L (5-37); Bilirubin Direct 0.3 mg/dL (0.0-0.5); Bilirubin Total 0.7 mg/dL (0.0-1.0); Carbon Dioxide 28 mmol/L (22-29); Chloride 107 mmol/L (96-108); Estimated Glomerular Filt Rate > 60; Glucose Random 99 mg/dL (60-115); Lipase 56 U/L (8-78); Potassium 4.6 mmol/L (3.3-5.1); Total Protein 7.6 g/dL (6.5-8.0)
[2021-12-03] MEDS: Ibuprofen 800 MG TABLET PO (14:34)
[2021-12-03] MEDS: oxyCODONE HCl Immed Release 5 MG TABLET PO (14:35)
[2021-12-03 14:40] VITALS: PULSE 73; RESP 16; O2SAT 96
[2021-12-03 16:05] LABS: Blood Urea Nitrogen 18 mg/dL (9-16); Calcium 9.8 mg/dL (8.4-10.2); Sodium 140 mmol/L (135-145)
== END 2021-12-03 15:30 | disposition home or self-care (01) ==
PROVIDERS: Emergency Provider Emergency Medicine; PCP Internal Medicine
DX: M06.9 Rheumatoid arthritis, unspecified (principal); M79.10 Myalgia, unspecified site; Z79.899 Other long term (current) drug therapy
CPT/HCPCS: 36415; 80048; 80076; 83690; 83880; 85025; 99283; 99284

== ENCOUNTER 2021-12-23 13:48 | Outpatient (REF) | payer OTHER, SELFPAY ==
[2021-12-23 15:37] LABS: MANUAL DIFF FLAG NO
[2021-12-23 15:48] LABS: Basophils Percent Auto 0.2 % (0-2); Eosinophils Absolute Auto 0.1 X10*3/uL (0.0-0.4); Hematocrit 48.8 % (42.0-52.0); Hemoglobin 16.3 g/dl (14.0-18.0); Imm Gran Abs Auto 0.02 X10*3/uL (0.00-0.03); Imm Gran Pct Auto 0.2 % (0.0-0.4); Lymphocytes Absolute Auto 1.9 X10*3/uL (1.2-4.9); Lymphocytes Percent Auto 22.2 % (20-40); Mean Corpuscular HGB Conc 33.4 g/dl (31.0-36.0); Mean Corpuscular Hemoglobin 32.9 pg (27.0-33.0); Mean Corpuscular Volume 98.4 fL (80.0-98.0); Mean Platelet Volume 9.5 fL (9.4-12.4); Monocytes Absolute Auto 0.7 X10*3/uL (0.1-1.2); Neutrophils Absolute Auto 5.7 x10*3/uL (2.0-8.3); Neutrophils Percent Auto 68.4 % (45-73); Platelet Count 326 X10*3/uL (160-400); Red Blood Count 4.96 X10*6/uL (4.60-5.80); Red Cell Distribution Width 13.2 % (11.0-16.0); White Blood Count 8.3 X10*3/uL (4.8-10.8)
[2021-12-23 16:14] LABS: Alanine Aminotransferase 17 U/L (0-40); Albumin Level 4.3 g/dL (3.5-5.0); Alkaline Phosphatase 86 U/L (39-117); Anion Gap 10 (12-20); Aspartate Amino Transferase 18 U/L (5-37); Bilirubin Total 0.5 mg/dL (0.0-1.0); Blood Urea Nitrogen 17 mg/dL (9-16); C Reactive Protein 0.49 mg/dL (< or = 0.50); Calcium 9.9 mg/dL (8.4-10.2); Carbon Dioxide 30 mmol/L (22-29); Chloride 103 mmol/L (96-108); Estimated Glomerular Filt Rate > 60; Glucose Random 106 mg/dL (60-115); Potassium 4.4 mmol/L (3.3-5.1); Sodium 139 mmol/L (135-145); Total Protein 7.5 g/dL (6.5-8.0)
[2021-12-23 16:30] LABS: Erythrocyte Sedimentation Rate 5 MM/HR (0-15)
== END 2021-12-23 13:49 | disposition home or self-care (01) ==
LOC: HO.LAB 13:48
PROVIDERS: PCP Internal Medicine; Visit Provider Nurse Practitioner Family
DX: R07.9 Chest pain, unspecified (principal); M06.9 Rheumatoid arthritis, unspecified; Z79.899 Other long term (current) drug therapy
CPT/HCPCS: 36415; 80053; 85025; 85652; 86140; 99212

== ENCOUNTER → 2022-03-20 13:25 | Outpatient (BNVA) | payer OTHER, SELFPAY | PROVIDERS: PCP Internal Medicine; Visit Provider Physician Assistant | DX: Z98.890 Other specified postprocedural states (principal) | CPT/HCPCS: 99212 ==

== ENCOUNTER 2022-04-06 07:20 | Outpatient (REF) | payer OTHER, MEDICAID, SELFPAY ==
--- NOTE | ~2022-04-06 | MR_ITS ---
EXAMINATION: MR KNEE WITHOUT CONTRAST, RIGHT CLINICAL INFORMATION: Right knee pain. Medial pain. Swelling. Osteoarthritis. Anterior cruciate ligament reconstruction. COMPARISON: Right knee MRI dated 09/05/2020. TECHNIQUE: MRI of the knee without contrast was performed using routine sequences on a high-field scanner. FINDINGS: MENISCI: Medial Meniscus: Minimal peripheral tibial articular surface fraying of the posterior horn is unchanged. No new medial meniscal tear. Lateral Meniscus: Intact LIGAMENTS: Cruciate: Post surgical change consistent with anterior cruciate ligament reconstruction. Prominent metallic artifact largely obscures the ligament graft. Evaluation for recurrent tear is significantly limited, however, the visualized graft fibers are intact and there is no associated edema. Grossly intact posterior cruciate ligament, however, this is largely obscured by metallic artifact. Collateral: Intact EXTENSOR MECHANISM: Intact ARTICULAR CARTILAGE/BONE: Patellofemoral Compartment: Normal Medial Compartment: Normal Lateral Compartment: Normal JOINT FLUID AND BURSAE: Small joint effusion and trace Pulido's cyst. MR/MR knee RT wo con IMPRESSION: 1. Postsurgical changes consistent with anterior cruciate ligament reconstruction. Metallic artifact largely obscures the ligament graft, however, the partially visualized graft fibers are grossly intact and there is no associated edema to suggest acute injury. Grossly intact posterior cruciate ligament. 2. Stable minimal tibial articular surface fraying of the medial meniscus posterior horn. No new meniscal tear. 3. Small joint effusion and trace Pulido's cyst.
== END 2022-04-06 07:21 | disposition home or self-care (01) ==
LOC: HO.MRI 07:20
PROVIDERS: Visit Provider Orthopaedic Surgery
DX: M17.11 Unilateral primary osteoarthritis, right knee (principal); Z98.890 Other specified postprocedural states
CPT/HCPCS: 73721

== ENCOUNTER → 2022-05-06 12:16 | Outpatient (BNVA) | payer OTHER, SELFPAY | PROVIDERS: PCP Internal Medicine; Visit Provider Physician Assistant | DX: M17.11 Unilateral primary osteoarthritis, right knee (principal) | CPT/HCPCS: 20610; 99212; J1040 ==

== ENCOUNTER 2022-06-25 10:42 | Outpatient (REF) | payer OTHER, MEDICAID, SELFPAY ==
[2022-06-25 12:40] LABS: TSH reflex Free T4 3.51 uIU/mL (0.32-4.0); Vitamin D 25-OH Total 14.8 ng/mL (>30)
== END 2022-06-25 10:43 | disposition home or self-care (01) ==
LOC: HO.LAB 10:42
PROVIDERS: Nurse Practitioner Family; Visit Provider Nurse Practitioner Family
DX: Z13.29 Encounter for screening for other suspected endocrine disorder (principal); M06.9 Rheumatoid arthritis, unspecified
CPT/HCPCS: 36415; 82306; 84443

== ENCOUNTER 2022-07-07 16:00 | Outpatient (RCR) | payer OTHER, MEDICAID, SELFPAY ==
--- NOTE | 2022-06-03 16:50 | MHC.PT.EP ---
[facility] [place] Office [place] Office [place] Office [address] [phone] F: [phone] F: [phone] F: [phone] F: [phone] Physical Therapy Plan of Care Date of Evaluation: Date of Surgery: Diagnosis: R knee OA Assessment: Pt is a 36 y/o male referred to PT for eval and treat for R knee OA who presents with decreased tolerance for standing and walking for duration, negotiating stairs, perform heavy HH chores and squatting activities secondary to decreased R knee strength, painful flexion end range, TTP of medial and posterior knee, Hx of ACL repair, and pain. Pt is deemed an appropriate candidate to receive skilled PT in order to address his physical limitations to improve his functional ability. Frequency and Duration: The patient will be seen 2 x / wk x 5 wks. Short Term Goals: Initiate HEP. Senior Care Goals: I with HEP. Pt will improve R knee extension MMT by at least 1/2 MMT grade: initial 4/5. Pt will be able to walk a mile with at most moderate difficulty; initial: extreme difficulty or unable. Pt will be able to negotiate 1 fl of stairs with at most moderate difficulty; initial: extreme difficulty. Treatment Plan: Modalities to reduce pain, spasms and effusion. Manual therapy to restore motion and function. Therapeutic exercise to improve strength and flexibility. Neuromuscular re-education for posture and balance. Therapeutic activities to return to functional activities of daily living. Electronically signed by: Bassem Ko PT Please sign and return to therapist. Thank you for your referral.
--- NOTE | 2022-12-22 14:20 | MHC.PT.DC ---
[facility] [place] Office [place] Office [place] Office [address] Jacki Celeste [address] [facility] [phone] F: [phone] F: [phone] F: [phone] F: [phone] Physical Therapy Discharge Report Diagnosis: R knee OA Date of Surgery: Date of Evaluation: 06/03/22 Date of Discharge: 12/22/22 Treatments to Date: 7 Cancellations to Date: 1 No Shows to Date: 2 Discharge Status: Improved Function Independent with HEP Visit Non-compliance Discharge Summary: Electronically signed by: Bassem Ko PT. Please sign and return to therapist. Thank you for your referral.
== END 2022-12-22 14:22 | disposition home or self-care (01) ==
LOC: HO.PTCHIC 16:00
PROVIDERS: PCP Internal Medicine; Visit Provider Physician Assistant
DX: M17.11 Unilateral primary osteoarthritis, right knee (principal)
CPT/HCPCS: 97110; 97112; 97161

== ENCOUNTER 2022-07-28 14:13 | Outpatient (REF) | payer OTHER, SELFPAY ==
--- NOTE | ~2022-07-28 | XR_ITS ---
EXAMINATION: X-RAY BILATERAL HAND CLINICAL INFORMATION: Pain. COMPARISON: X-ray 07/08/2020 TECHNIQUE: Right hand 3 views. Left hand 3 views. FINDINGS: Right hand: Bony alignment is anatomic. Ulna negative variance. No fracture or dislocation is seen. Question erosive changes of the radial aspect of the second MCP joint, similar or slightly more prominent as compared to previous. Joint spaces otherwise maintained. No additional erosive changes seen. No abnormal soft tissue calcification. Left hand: No fracture or dislocation is seen.. Ulnar negative variance. No significant joint space narrowing or marginal osteophytes. No osseous erosion. No abnormal soft tissue calcification. XR/XR hand LT min 3V IMPRESSION: Right hand: Question erosive changes on the radial aspect of the second MCP joint, similar or slightly more prominent as compared to prior radiograph 07/08/2020. Differential consideration include inflammatory arthritis, gout. Left hand: No acute osseous abnormality
--- NOTE | ~2022-07-28 | XR_ITS ---
EXAMINATION: X-RAY BILATERAL FEET CLINICAL INFORMATION: Rheumatoid arthritis COMPARISON: X-ray 07/08/2020 TECHNIQUE: Left foot 3 views. Right foot 3 views. FINDINGS: Left foot: Mild hallux valgus at the first MTP joint. Alignment is otherwise anatomic. No acute fracture or dislocation is seen. Subchondral cyst or erosion in the medial aspect of the first metatarsal head, slightly more prominent as compared to previous. Lucencies in the third metatarsal head, could represent cysts or erosions. Small lucencies in the fifth metatarsal head/neck, could represent small cysts or erosions. Findings new/more prominent as compared to previous. No abnormal soft tissue calcification. Small calcification the distal Achilles tendon. Right foot: Mild hallux valgus at the first MTP joint. Alignment is otherwise anatomic. No fracture or dislocation is seen. Erosions in the medial aspect of the first MTP joint, similar to previous. No erosion in the lateral aspect of the fifth metatarsal head. No abnormal soft tissue calcification. XR/XR foot RT 2V IMPRESSION: Left foot: Small subchondral cyst or erosion in the medial aspect of the first metatarsal head, slightly more prominent as compared to previous. This could be related to gout, inflammatory arthropathy. There are lucencies from cysts or erosions in the third metatarsal head and fifth metatarsal head/neck, which could represent small cysts or erosions. Right foot: Erosion in the fifth metatarsal head, new from previous. Inflammatory arthropathy such as rheumatoid arthritis should be considered. Erosions in the medial aspect of first MTP joint, similar to previous..
--- NOTE | ~2022-07-28 | XR_ITS ---
EXAMINATION: X-RAY BILATERAL FEET CLINICAL INFORMATION: Rheumatoid arthritis COMPARISON: X-ray 07/08/2020 TECHNIQUE: Left foot 3 views. Right foot 3 views. FINDINGS: Left foot: Mild hallux valgus at the first MTP joint. Alignment is otherwise anatomic. No acute fracture or dislocation is seen. Subchondral cyst or erosion in the medial aspect of the first metatarsal head, slightly more prominent as compared to previous. Lucencies in the third metatarsal head, could represent cysts or erosions. Small lucencies in the fifth metatarsal head/neck, could represent small cysts or erosions. Findings new/more prominent as compared to previous. No abnormal soft tissue calcification. Small calcification the distal Achilles tendon. Right foot: Mild hallux valgus at the first MTP joint. Alignment is otherwise anatomic. No fracture or dislocation is seen. Erosions in the medial aspect of the first MTP joint, similar to previous. No erosion in the lateral aspect of the fifth metatarsal head. No abnormal soft tissue calcification. XR/XR foot LT 2V IMPRESSION: Left foot: Small subchondral cyst or erosion in the medial aspect of the first metatarsal head, slightly more prominent as compared to previous. This could be related to gout, inflammatory arthropathy. There are lucencies from cysts or erosions in the third metatarsal head and fifth metatarsal head/neck, which could represent small cysts or erosions. Right foot: Erosion in the fifth metatarsal head, new from previous. Inflammatory arthropathy such as rheumatoid arthritis should be considered. Erosions in the medial aspect of first MTP joint, similar to previous..
--- NOTE | ~2022-07-28 | XR_ITS ---
EXAMINATION: X-RAY BILATERAL HAND CLINICAL INFORMATION: Pain. COMPARISON: X-ray 07/08/2020 TECHNIQUE: Right hand 3 views. Left hand 3 views. FINDINGS: Right hand: Bony alignment is anatomic. Ulna negative variance. No fracture or dislocation is seen. Question erosive changes of the radial aspect of the second MCP joint, similar or slightly more prominent as compared to previous. Joint spaces otherwise maintained. No additional erosive changes seen. No abnormal soft tissue calcification. Left hand: No fracture or dislocation is seen.. Ulnar negative variance. No significant joint space narrowing or marginal osteophytes. No osseous erosion. No abnormal soft tissue calcification. XR/XR hand RT min 3V IMPRESSION: Right hand: Question erosive changes on the radial aspect of the second MCP joint, similar or slightly more prominent as compared to prior radiograph 07/08/2020. Differential consideration include inflammatory arthritis, gout. Left hand: No acute osseous abnormality
[2022-07-28 14:32] LABS: MANUAL DIFF FLAG NO
[2022-07-28 14:57] LABS: Basophils Percent Auto 0.6 % (0-2); Eosinophils Absolute Auto 0.1 X10*3/uL (0.0-0.4); Eosinophils Percent Auto 1.1 % (0-4); Hematocrit 43.4 % (42.0-52.0); Hemoglobin 15.1 g/dl (14.0-18.0); Imm Gran Abs Auto 0.03 X10*3/uL (0.00-0.03); Imm Gran Pct Auto 0.5 % (0.0-0.4); Lymphocytes Absolute Auto 1.7 X10*3/uL (1.2-4.9); Lymphocytes Percent Auto 26.2 % (20-40); Mean Corpuscular HGB Conc 34.8 g/dl (31.0-36.0); Mean Corpuscular Hemoglobin 33.1 pg (27.0-33.0); Mean Corpuscular Volume 95.2 fL (80.0-98.0); Mean Platelet Volume 9.7 fL (9.4-12.4); Monocytes Absolute Auto 0.9 X10*3/uL (0.1-1.2); Monocytes Percent Auto 13.8 % (2-11); Neutrophils Absolute Auto 3.8 x10*3/uL (2.0-8.3); Neutrophils Percent Auto 57.8 % (45-73); Platelet Count 291 X10*3/uL (160-400); Red Blood Count 4.56 X10*6/uL (4.60-5.80); Red Cell Distribution Width 13.2 % (11.0-16.0); White Blood Count 6.6 X10*3/uL (4.8-10.8)
[2022-07-28 15:18] LABS: Alanine Aminotransferase 27 U/L (0-40); Albumin Level 4.4 g/dL (3.5-5.0); Alkaline Phosphatase 73 U/L (39-117); Anion Gap 15 (12-20); Aspartate Amino Transferase 22 U/L (5-37); Bilirubin Total 0.8 mg/dL (0.0-1.0); Blood Urea Nitrogen 21 mg/dL (9-16); C Reactive Protein 1.49 mg/dL (< or = 0.50); Calcium 9.6 mg/dL (8.4-10.2); Carbon Dioxide 24 mmol/L (22-29); Chloride 107 mmol/L (96-108); Estimated Glomerular Filt Rate > 60; Glucose Random 96 mg/dL (60-115); Potassium 4.2 mmol/L (3.3-5.1); Sodium 142 mmol/L (135-145); Total Protein 7.4 g/dL (6.5-8.0)
[2022-07-28 15:53] LABS: Erythrocyte Sedimentation Rate 9 MM/HR (0-15)
[2022-07-28 16:04] LABS: Appearance Urine Clear; Color Urine Dark Yellow; Glucose Urine UA Negative (Negative); Leukocyte Esterase Urine Small (1+) (Negative); Nitrite Urine Negative (Negative); Specific Gravity - Urine >= 1.030 (1.005-1.025); UMIC TRIGGER UACC YES; Urine Blood Negative (Negative); Urine Ketones Trace mg/dL (Negative); Urine Protein Trace mg/dL (Neg-Trace)
[2022-07-28 16:10] LABS: Bacteria Urine Trace (None Seen); Hyaline Casts Urine 0-2 /LPF (0-2); RBC Urine 0-2 /HPF (0-2); Squamous Epithelial Cell Urine 0-2 /HPF (0-2); UACC Culture Trigger YES; WBC Urine 21-50 /HPF (0-5)
[2022-07-29 08:10] LABS: HBS Num1 > 1000.00 mIU/mL (0-7.99); HBc Num1 0.09 S/CO (0.00-0.79); HBsAGNum1 0.18 S/CO (0.00-0.99); Hepatitis A Antibody IgM 0.16 Index (0-0.79); Hepatitis B Core Antibody Nonreactive (Nonreactive); Hepatitis B Surface Antigen Negative (Negative); ~HepC Num1 0.11 S/CO (0.00-0.79); ~Hepatitis A Antibody IgM Nonreactive (Nonreactive); ~Hepatitis B Surface Antibody REACTIVE (Nonreactive); ~Hepatitis C Antibody Nonreactive (Nonreactive)
[2022-07-30 22:22] LABS: TS Negative Control Passed; TS Panel A 0; TS Panel B 0; TS Positive Control Passed; TSpotTB Negative (Negative)
== END 2022-07-28 14:14 | disposition home or self-care (01) ==
LOC: HO.LAB 14:13
PROVIDERS: PCP Internal Medicine; Visit Provider Nurse Practitioner Family
DX: M06.9 Rheumatoid arthritis, unspecified (principal); M17.11 Unilateral primary osteoarthritis, right knee; M79.641 Pain in right hand; M79.642 Pain in left hand; M79.671 Pain in right foot; M79.672 Pain in left foot; R31.9 Hematuria, unspecified; Z79.899 Other long term (current) drug therapy
CPT/HCPCS: 36415; 73130; 73620; 80053; 81001; 81003; 85025; 85652; 86140; 86481; 86704; 86706; 86709; 86803; 87086; 87340; 99212

== ENCOUNTER 2022-08-27 08:59 | Outpatient (REF) | payer OTHER, SELFPAY ==
[2022-08-27 10:26] LABS: Appearance Urine Clear; Color Urine Yellow; Glucose Urine UA Negative (Negative); Leukocyte Esterase Urine Small (1+) (Negative); Nitrite Urine Negative (Negative); PH 6.5 (5.0-9.0); UMIC TRIGGER UACC YES; Urine Blood Negative (Negative); Urine Ketones Negative (Negative); Urine Protein Negative (Neg-Trace)
[2022-08-27 10:33] LABS: Bacteria Urine None Seen (None Seen); Hyaline Casts Urine 0-2 /LPF (0-2); RBC Urine 0-2 /HPF (0-2); Squamous Epithelial Cell Urine 0-2 /HPF (0-2); UACC Culture Trigger YES
[2022-08-27 10:37] LABS: Vitamin D 25-OH Total 18.5 ng/mL (>30)
== END 2022-08-27 09:00 | disposition home or self-care (01) ==
LOC: HO.LAB 08:59
PROVIDERS: Nurse Practitioner Family; PCP Internal Medicine; Visit Provider Nurse Practitioner Family
DX: M06.9 Rheumatoid arthritis, unspecified (principal); M17.11 Unilateral primary osteoarthritis, right knee; R79.89 Other specified abnormal findings of blood chemistry; R31.9 Hematuria, unspecified; Z79.899 Other long term (current) drug therapy
CPT/HCPCS: 36415; 81001; 82306; 87086; 99212

== ENCOUNTER 2022-08-31 13:35 | Outpatient (REF) | payer OTHER, SELFPAY ==
[2022-08-31 13:45] LABS: MANUAL DIFF FLAG NO
[2022-08-31 14:12] LABS: Appearance Urine Clear; Color Urine Dark Yellow; Glucose Urine UA Negative (Negative); Leukocyte Esterase Urine Trace (Negative); Nitrite Urine Negative (Negative); PH 5.5 (5.0-9.0); Specific Gravity - Urine >= 1.030 (1.005-1.025); UMIC TRIGGER UACC YES; Urine Blood Negative (Negative); Urine Ketones Trace mg/dL (Negative); Urine Protein Trace mg/dL (Neg-Trace)
[2022-08-31 14:15] LABS: Basophils Percent Auto 0.5 % (0-2); Eosinophils Absolute Auto 0.1 X10*3/uL (0.0-0.4); Eosinophils Percent Auto 0.9 % (0-4); Hematocrit 47.4 % (42.0-52.0); Imm Gran Abs Auto 0.02 X10*3/uL (0.00-0.03); Imm Gran Pct Auto 0.3 % (0.0-0.4); Lymphocytes Absolute Auto 1.7 X10*3/uL (1.2-4.9); Lymphocytes Percent Auto 21.6 % (20-40); Mean Corpuscular HGB Conc 33.8 g/dl (31.0-36.0); Mean Corpuscular Hemoglobin 32.9 pg (27.0-33.0); Mean Corpuscular Volume 97.3 fL (80.0-98.0); Mean Platelet Volume 9.4 fL (9.4-12.4); Monocytes Absolute Auto 0.8 X10*3/uL (0.1-1.2); Monocytes Percent Auto 10.6 % (2-11); Neutrophils Absolute Auto 5.1 x10*3/uL (2.0-8.3); Neutrophils Percent Auto 66.1 % (45-73); Platelet Count 335 X10*3/uL (160-400); Red Blood Count 4.87 X10*6/uL (4.60-5.80); Red Cell Distribution Width 12.8 % (11.0-16.0); White Blood Count 7.7 X10*3/uL (4.8-10.8)
[2022-08-31 14:17] LABS: Bacteria Urine None Seen (None Seen); Hyaline Casts Urine 0-2 /LPF (0-2); RBC Urine 0-2 /HPF (0-2); WBC Urine 0-5 /HPF (0-5)
[2022-08-31 14:47] LABS: Alanine Aminotransferase 30 U/L (0-40); Aspartate Amino Transferase 23 U/L (5-37); C Reactive Protein 0.54 mg/dL (< or = 0.50); Estimated Glomerular Filt Rate > 60
[2022-08-31 15:07] LABS: Erythrocyte Sedimentation Rate 7 MM/HR (0-15)
== END 2022-08-31 13:36 | disposition home or self-care (01) ==
LOC: HO.LAB 13:35
PROVIDERS: PCP Internal Medicine; Visit Provider Nurse Practitioner Family
DX: M06.9 Rheumatoid arthritis, unspecified (principal); Z79.899 Other long term (current) drug therapy
CPT/HCPCS: 36415; 81001; 82565; 84450; 84460; 85025; 85652; 86140

== ENCOUNTER 2022-11-06 11:12 | Outpatient (REF) | payer OTHER, SELFPAY ==
[2022-11-06 13:03] LABS: Vitamin D 25-OH Total 25.3 ng/mL (>30)
[2022-11-06 15:39] LABS: MANUAL DIFF FLAG NO
[2022-11-06 15:57] LABS: Basophils Absolute Auto 0.1 X10*3/uL (0.0-0.2); Basophils Percent Auto 0.5 % (0-2); Eosinophils Percent Auto 0.4 % (0-4); Hematocrit 43.3 % (42.0-52.0); Hemoglobin 14.8 g/dl (14.0-18.0); Imm Gran Abs Auto 0.03 X10*3/uL (0.00-0.03); Imm Gran Pct Auto 0.3 % (0.0-0.4); Lymphocytes Absolute Auto 1.9 X10*3/uL (1.2-4.9); Lymphocytes Percent Auto 17.5 % (20-40); Mean Corpuscular HGB Conc 34.2 g/dl (31.0-36.0); Mean Corpuscular Hemoglobin 32.2 pg (27.0-33.0); Mean Corpuscular Volume 94.3 fL (80.0-98.0); Mean Platelet Volume 9.3 fL (9.4-12.4); Monocytes Absolute Auto 0.9 X10*3/uL (0.1-1.2); Monocytes Percent Auto 8.1 % (2-11); Neutrophils Absolute Auto 7.9 x10*3/uL (2.0-8.3); Neutrophils Percent Auto 73.2 % (45-73); Platelet Count 359 X10*3/uL (160-400); Red Blood Count 4.59 X10*6/uL (4.60-5.80); Red Cell Distribution Width 13.6 % (11.0-16.0); White Blood Count 10.8 X10*3/uL (4.8-10.8)
[2022-11-06 16:19] LABS: Alanine Aminotransferase 27 U/L (0-40); Aspartate Amino Transferase 23 U/L (5-37); C Reactive Protein 0.78 mg/dL (< or = 0.50); Estimated Glomerular Filt Rate > 60
[2022-11-06 16:43] LABS: Erythrocyte Sedimentation Rate 7 MM/HR (0-15)
== END 2022-11-06 11:13 | disposition home or self-care (01) ==
LOC: HO.LAB 11:12
PROVIDERS: Absent Provider Nurse Practitioner Family; PCP Internal Medicine; Visit Provider Nurse Practitioner Family
DX: M06.9 Rheumatoid arthritis, unspecified (principal); M17.11 Unilateral primary osteoarthritis, right knee; R31.9 Hematuria, unspecified; R79.89 Other specified abnormal findings of blood chemistry; Z79.899 Other long term (current) drug therapy
CPT/HCPCS: 36415; 82306; 82565; 84450; 84460; 85025; 85652; 86140; 99212

== ENCOUNTER 2022-11-06 11:22 | Emergency (ER) | payer OTHER, SELFPAY ==
--- NOTE | ~2022-11-06 | XR_ITS ---
EXAMINATION: XR KNEE, RIGHT CLINICAL INFORMATION: Pain, mild swelling COMPARISON: MRI 04/06/2022, x-ray 08/19/2020 TECHNIQUE: Four views of the right knee. FINDINGS: Heterogeneity and patchy lucencies in the proximal tibia likely related to postsurgical changes from ACL reconstruction. No acute fracture or dislocation is seen. Joint spaces are maintained. No significant effusion. XR/XR knee RT 4V IMPRESSION: Postsurgical changes related to ACL reconstruction. No radiographic evidence of acute fracture or dislocation.
[2022-11-06 11:27] VITALS: BP 154/103; PULSE 107; RESP 20; TEMP 37.5; O2SAT 96; BMI 31.0
[2022-11-06] MEDS: Ibuprofen 600 MG TABLET PO (11:56)
--- NOTE | 2022-11-06 12:00 | ED.GENADULT ---
HPI - General Adult General Chief complaint: General Medical Stated complaint: Joint Pain Time Seen by Provider: 11/06/22 11:28 Source: patient, old records reviewed and doggy daycare activities director Mode of arrival: ambulatory Limitations: no limitations History of Present Illness HPI narrative: 37-year-old male with a history of rheumatoid arthritis on methotrexate, history of chronic joint pain, history of ACL reconstruction of the right knee who presents to the ER for evaluation of worsening joint pains in his hands and feet along with worsening right knee pain for the last 1 week. He states he feels like his right knee is a little more swollen than usual. It is more painful to walk than usual. He takes Tylenol for pain with minimal relief. He has an appointment with his protein scientist today. He denies any injury, fall, twisting motions. He denies any redness or warmth to the joint. No fevers. He is able to extend and flex it as normal but with some discomfort. He reports ongoing bilateral hand pain and bilateral feet and ankle pain as well. This is chronic and going on for years. MD complaint: Polyarthralgias, right knee pain Location: right and lower extremity Radiation: non-radiation Severity: moderate Severity scale (1-10): 6 Quality: aching Pain Consistency: constant Relieving factors: none Exacerbating factors: movement Associated symptoms: denies other symptoms Treatments prior to arrival: none Related Data Previous Rx's Medication Instructions Recorded acetaminophen 500 mg tablet 500 mg PO Q6H PRN pain or fever 08/19/20 (Tylenol Extra Strength) #20 tabs diclofenac sodium 1 % topical gel 2 g topical QID 7 days #100 grams 08/19/20 pantoprazole 40 mg tablet,delayed 40 mg PO DAILY #30 tabs 02/01/22 release albuterol sulfate 90 mcg/actuation 2 puff PO Q6H PRN shortness of 03/12/22 aerosol inhaler breath or wheezing 30 days #8.5 grams fluticasone propionate 50 1 spray intranasal DAILY #100 mL 04/08/22 mcg/actuation nasal spray,suspension (Flonase Allergy Relief) folic acid 1 mg tablet 1 mg PO DAILY #90 tabs 08/27/22 methotrexate sodium 2.5 mg tablet 20 mg PO QWEEK #32 tabs 08/31/22 cholecalciferol (vitamin D3) 50 50 mcg PO DAILY #90 tabs 09/01/22 mcg (2,000 unit) tablet Allergies Allergy/AdvReac Type Severity Reaction Status Date / Time Penicillins [PENICILLINS] Allergy Unknown RASH Verified 08/27/22 13:11 morphine AdvReac Itching Verified 08/27/22 13:11 Review of Systems Review of Systems: Yes all other systems are reviewed and are negative [facility] Past Medical History Medical History Arthritis Asthma GERD (gastroesophageal reflux disease) History of febrile seizure alf methotrexate user Lupus anticoagulant positive Rheumatoid arthritis Surgical History History of surgery on lower extremity Hx of exploratory laparotomy S/P hardware removal S/P ORIF (open reduction internal fixation) fracture Family History Family History Mother Alzheimer disease Hypertension Father Hypertension Social History Social History Household Members: None Housing: Apartment Are you a primary acute care physician to a significant other at home: No Do you presently have visiting nurse or other home services: No Alcohol intake: current Alcohol intake frequency: holidays/special occasions only Patient Tobacco Use Status: Never used Tobacco e-Cigarette/Vaping Use: Never Used Second Hand Smoke Exposure: No Advance Directives: No Advance Directives Information Provided: No service: No Current occupational status: employed 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 Oriented X3. No acute distress. HEENT: normal inspection CVS: Normal heart rate and rhythm. Pulses normal. Respiratory: No respiratory distress. Skin: Skin warm and dry. Normal skin color. Normal skin turgor. No rashes. Extremities: Mild generalized swelling of the right knee without any overlying erythema or warmth. Normal range of motion. No appreciated joint laxity. Generalized knee tenderness without any focal, point tenderness. He has some generalized swelling of the bilateral MCPs of digits 2 through 5 on the bilateral hands without any overlying erythema or warmth. Equal urologist physician strength bilaterally Neuro: Oriented X 3. No motor deficit. No sensory deficit. Course Course Course Narrative: 37-year-old male with history of rheumatoid arthritis on methotrexate, history of ACL reconstruction the right knee presents to the ER for evaluation of worsening right knee pain and polyarthralgias. No knee trauma. He would like a knee x-ray. Knee x-ray ordered. Reevaluation(s) Reevaluation #1: X-ray showing postop changes, no effusion or acute bony injury. At this time patient is stable for discharge to follow-up with his protein scientist for further management of his chronic joint issues. Will defer steroids and other treatment modalities to rheumatology. Medications Administered Discontinued Medications Generic Name Dose Route Start Last Admin Trade Name Freq PRN Reason Stop Dose Admin Ibuprofen 600 mg 11/06/22 11:41 11/06/22 11:56 Ibuprofen 600 Mg Tablet PO 11/06/22 11:42 600 mg ONCE ONE Administration Medical Decision Making Medical Decision Making MDM Narrative: 37-year-old male presenting with acute on chronic right knee pain, polyarthralgias, acute on chronic. Known RA. Could be having a flare. No evidence of septic joint. Differential Diagnosis Differential Diagnoses: The differential diagnosis associated with the presentation includes RA flare, other rheumatologic, inflammatory joint process, osteoarthritis, right knee effusion, less likely right knee infection, no evidence of septic joint Independent Interpretation I performed an independent interpretation of an: Plain X-Ray Interpretation: No acute injury Radiology Impression Discussion of test interpretation with radiology: I have reviewed the radiologist's reading. Radiologist Impression: FINDINGS: Heterogeneity and patchy lucencies in the proximal tibia likely related to postsurgical changes from ACL reconstruction. No acute fracture or dislocation is seen. Joint spaces are maintained. No significant effusion. XR/XR knee RT 4V IMPRESSION: Postsurgical changes related to ACL reconstruction. No radiographic evidence of acute fracture or dislocation. External Record Review External record reviewed: Outpatient record, Prior outpatient labs and Prior outpatient radiology Prescription Management I considered prescription management with: Pain Medication Patient should take [id number] Motrin and Tylenol, defer chronic pain management to his outpatient providers. Critical Care Time Critical Care Time Critical Care Time: No Discharge Plan Discharge Clinical Impression: Osteoarthritis of right knee Patient Disposition: Home, Self-Care Instructions: Knee Pain (ED), Arthralgia (ED) Additional Instructions: Your x-ray today showed postsurgical changes related to the ACL construction. There was no fractures, dislocations or fluid collection. Recommend following up with your protein scientist and primary care doctor. Take Motrin and Tylenol as needed for joint pains. If you develop new or worsening symptoms call 911 or come back to the ER for further evaluation. Galeana radiograf?a de hoy mostr? cambios posquir?rgicos relacionados con la construcci?n del LCA. No hab?a fracturas, luxaciones ni colecci?n de l?quido. Recomendar el seguimiento con galeana reumat?logo y m?dico de atenci?n primaria. Polo Motrin y Tylenol seg?n sea necesario para los nesha en las articulaciones. Si desarrolla s?ntomas nuevos o que empeoran, llame al 911 o regrese a la tess de emergencias para genia evaluaci?n adicional. Prescriptions: No Action pantoprazole 40 mg tablet,delayed release (DR/EC) 40 mg PO DAILY Qty: 30 6RF fluticasone propionate [Flonase Allergy Relief] 50 mcg/actuation spray,suspension 1 spray intranasal DAILY Qty: 100 0RF Rx Instructions: administer into each nostril methotrexate sodium 2.5 mg tablet 20 mg PO QWEEK Qty: 32 2RF Rx Instructions: take 8 tabs by mouth once a week. cholecalciferol (vitamin D3) 50 mcg (2,000 unit) tablet 50 mcg PO DAILY Qty: 90 0RF acetaminophen [Tylenol Extra Strength] 500 mg tablet 500 mg PO Q6H PRN (Reason: pain or fever) Qty: 20 0RF diclofenac sodium 1 % gel 2 g topical QID 7 Days Qty: 100 0RF Rx Instructions: apply to right knee albuterol sulfate 90 mcg/actuation HFA aerosol inhaler 2 puff PO Q6H PRN (Reason: shortness of breath or wheezing) 30 Days Qty: 8.5 6RF folic acid 1 mg tablet 1 mg PO DAILY Qty: 90 1RF Referrals: [facility] Rheumatology Service [Provider Group] (Polyarthralgia, RA) Stand Alone Forms: Work/School Release Interventions: ED Discharge Assessment Last Done: 11/06/22 13:25 Print Language: Mohawk
== END 2022-11-06 13:29 | disposition home or self-care (01) ==
PROVIDERS: Emergency Provider Emergency Medicine; PCP Internal Medicine
DX: M17.11 Unilateral primary osteoarthritis, right knee (principal); Z79.899 Other long term (current) drug therapy
CPT/HCPCS: 73564; 99283

== ENCOUNTER 2022-12-09 09:17 | Outpatient (REF) | payer OTHER, SELFPAY ==
[2022-12-09 09:35] LABS: MANUAL DIFF FLAG NO
[2022-12-09 10:07] LABS: Basophils Percent Auto 0.4 % (0-2); Eosinophils Absolute Auto 0.1 X10*3/uL (0.0-0.4); Hematocrit 42.3 % (42.0-52.0); Hemoglobin 14.2 g/dl (14.0-18.0); Imm Gran Abs Auto 0.03 X10*3/uL (0.00-0.03); Imm Gran Pct Auto 0.4 % (0.0-0.4); Lymphocytes Absolute Auto 1.8 X10*3/uL (1.2-4.9); Lymphocytes Percent Auto 22.4 % (20-40); Mean Corpuscular HGB Conc 33.6 g/dl (31.0-36.0); Mean Corpuscular Hemoglobin 32.3 pg (27.0-33.0); Mean Corpuscular Volume 96.4 fL (80.0-98.0); Mean Platelet Volume 9.8 fL (9.4-12.4); Monocytes Absolute Auto 0.8 X10*3/uL (0.1-1.2); Monocytes Percent Auto 9.5 % (2-11); Neutrophils Absolute Auto 5.2 x10*3/uL (2.0-8.3); Neutrophils Percent Auto 66.3 % (45-73); Platelet Count 336 X10*3/uL (160-400); Red Blood Count 4.39 X10*6/uL (4.60-5.80); Red Cell Distribution Width 13.9 % (11.0-16.0); White Blood Count 7.9 X10*3/uL (4.8-10.8)
[2022-12-09 10:31] LABS: Alanine Aminotransferase 19 U/L (0-40); Aspartate Amino Transferase 16 U/L (5-37); Estimated Glomerular Filt Rate > 60
[2022-12-09 10:46] LABS: Erythrocyte Sedimentation Rate 10 MM/HR (0-15)
== END 2022-12-09 09:18 | disposition home or self-care (01) ==
LOC: HO.LAB 09:17
PROVIDERS: PCP Internal Medicine; Visit Provider Nurse Practitioner Family
DX: M06.9 Rheumatoid arthritis, unspecified (principal); Z79.899 Other long term (current) drug therapy
CPT/HCPCS: 36415; 82565; 84450; 84460; 85025; 85652; 86140

== ENCOUNTER 2022-12-18 14:05 | Outpatient (REF) | payer OTHER, SELFPAY ==
[2022-12-18 16:57] LABS: Urine Cytology See Pathology rpt
== END 2022-12-18 14:06 | disposition home or self-care (01) ==
LOC: HO.LAB 14:05
PROVIDERS: PCP Internal Medicine; Visit Provider Nurse Practitioner Family
DX: R31.9 Hematuria, unspecified (principal); Z79.899 Other long term (current) drug therapy
CPT/HCPCS: 88112; 99202

== ENCOUNTER → 2022-12-30 13:47 | Outpatient (BNVA) | payer OTHER, SELFPAY | PROVIDERS: PCP Internal Medicine; Visit Provider Nurse Practitioner Family | DX: M06.9 Rheumatoid arthritis, unspecified (principal); M17.11 Unilateral primary osteoarthritis, right knee; R31.9 Hematuria, unspecified; Z79.899 Other long term (current) drug therapy | CPT/HCPCS: 99212 ==

== ENCOUNTER 2023-01-06 14:08 | Outpatient (REF) | payer OTHER, SELFPAY ==
--- NOTE | ~2023-01-06 | US_ITS ---
EXAMINATION: US RETROPERITONEAL COMPLETE (RENAL) CLINICAL INFORMATION: Hematuria, unspecified. COMPARISON: Ultrasound retroperitoneal limited (renal only) 08/23/2018. X-ray abdomen KUB 06/06/2018 and 02/21/2013. TECHNIQUE: Real-time imaging of the kidneys and bladder. FINDINGS: RIGHT KIDNEY: 10.4 x 5.2 x 5.3 cm (SAG x AP x TRV). The kidney is normal in size, contour, and echogenicity. Renal cortical thickness is normal. No calculi or focal parenchymal lesions. No hydronephrosis. LEFT KIDNEY: 10.3 x 6.0 x 6.1 cm (SAG x AP x TRV). The kidney is normal in size, contour, and echogenicity. Renal cortical thickness is normal. No calculi or focal parenchymal lesions. The previously seen questionable stone in the left kidney is not seen on this exam. No hydronephrosis. BLADDER: Well distended and normal. Bilateral ureteral jets are demonstrated. Prevoid bladder volume is 216 mL. Postvoid bladder volume is 2.9 mL. The prostate volume is 16.9 mL. US/US retroperitoneal comp IMPRESSION: No significant abnormality is seen. A cause for the patient's hematuria has not been found.
== END 2023-01-06 14:09 | disposition home or self-care (01) ==
LOC: HO.US 14:08
PROVIDERS: PCP Internal Medicine; Visit Provider Nurse Practitioner Family
DX: R31.9 Hematuria, unspecified (principal)
CPT/HCPCS: 76770

== ENCOUNTER 2023-02-03 14:39 | Outpatient (REF) | payer OTHER, SELFPAY ==
[2023-02-03 14:57] LABS: MANUAL DIFF FLAG NO
[2023-02-03 16:56] LABS: Basophils Absolute Auto 0.1 X10*3/uL (0.0-0.2); Basophils Percent Auto 0.5 % (0-2); Eosinophils Absolute Auto 0.1 X10*3/uL (0.0-0.4); Eosinophils Percent Auto 0.6 % (0-4); Hematocrit 43.5 % (42.0-52.0); Hemoglobin 14.5 g/dl (14.0-18.0); Imm Gran Abs Auto 0.03 X10*3/uL (0.00-0.03); Imm Gran Pct Auto 0.3 % (0.0-0.4); Lymphocytes Absolute Auto 1.5 X10*3/uL (1.2-4.9); Lymphocytes Percent Auto 14.9 % (20-40); Mean Corpuscular HGB Conc 33.3 g/dl (31.0-36.0); Mean Corpuscular Hemoglobin 31.9 pg (27.0-33.0); Mean Corpuscular Volume 95.6 fL (80.0-98.0); Mean Platelet Volume 9.9 fL (9.4-12.4); Monocytes Absolute Auto 0.9 X10*3/uL (0.1-1.2); Monocytes Percent Auto 9.1 % (2-11); Neutrophils Absolute Auto 7.5 x10*3/uL (2.0-8.3); Neutrophils Percent Auto 74.6 % (45-73); Platelet Count 351 X10*3/uL (160-400); Red Blood Count 4.55 X10*6/uL (4.60-5.80); Red Cell Distribution Width 13.6 % (11.0-16.0)
[2023-02-03 17:35] LABS: Erythrocyte Sedimentation Rate 10 MM/HR (0-15)
[2023-02-03 17:50] LABS: Alanine Aminotransferase 17 U/L (0-40); Aspartate Amino Transferase 15 U/L (5-37); Estimated Glomerular Filt Rate > 60
[2023-02-03 17:52] LABS: Vitamin D 25-OH Total 42.4 ng/mL (>30)
== END 2023-02-03 14:40 | disposition home or self-care (01) ==
LOC: HO.LAB 14:39
PROVIDERS: Nurse Practitioner Family; PCP Internal Medicine; Visit Provider Nurse Practitioner Family
DX: M06.9 Rheumatoid arthritis, unspecified (principal); M17.11 Unilateral primary osteoarthritis, right knee; R31.9 Hematuria, unspecified; Z79.899 Other long term (current) drug therapy
CPT/HCPCS: 36415; 82306; 82565; 84450; 84460; 85025; 85652; 86140; 99212

== ENCOUNTER 2023-03-12 09:38 | Outpatient (REF) | payer OTHER, SELFPAY ==
[2023-03-12 09:56] LABS: MANUAL DIFF FLAG NO
[2023-03-12 10:29] LABS: Basophils Percent Auto 0.3 % (0-2); Eosinophils Absolute Auto 0.2 X10*3/uL (0.0-0.4); Eosinophils Percent Auto 1.9 % (0-4); Hematocrit 44.7 % (42.0-52.0); Imm Gran Abs Auto 0.03 X10*3/uL (0.00-0.03); Imm Gran Pct Auto 0.3 % (0.0-0.4); Lymphocytes Absolute Auto 2.7 X10*3/uL (1.2-4.9); Lymphocytes Percent Auto 31.6 % (20-40); Mean Corpuscular HGB Conc 33.6 g/dl (31.0-36.0); Mean Corpuscular Hemoglobin 31.7 pg (27.0-33.0); Mean Corpuscular Volume 94.5 fL (80.0-98.0); Mean Platelet Volume 9.8 fL (9.4-12.4); Monocytes Absolute Auto 0.8 X10*3/uL (0.1-1.2); Monocytes Percent Auto 9.1 % (2-11); Neutrophils Absolute Auto 4.9 x10*3/uL (2.0-8.3); Neutrophils Percent Auto 56.8 % (45-73); Platelet Count 295 X10*3/uL (160-400); Red Blood Count 4.73 X10*6/uL (4.60-5.80); Red Cell Distribution Width 14.3 % (11.0-16.0); White Blood Count 8.6 X10*3/uL (4.8-10.8)
[2023-03-12 11:16] LABS: Alanine Aminotransferase 18 U/L (0-40); Albumin Level 4.1 g/dL (3.5-5.0); Alkaline Phosphatase 65 U/L (39-117); Anion Gap 11 (12-20); Aspartate Amino Transferase 18 U/L (5-37); Bilirubin Total 0.8 mg/dL (0.0-1.0); Blood Urea Nitrogen 15 mg/dL (9-16); Calcium 9.3 mg/dL (8.4-10.2); Carbon Dioxide 24 mmol/L (22-29); Chloride 108 mmol/L (96-108); Estimated Glomerular Filt Rate > 60; Glucose Random 90 mg/dL (60-115); Potassium 4.3 mmol/L (3.3-5.1); Sodium 139 mmol/L (135-145); Total Protein 6.7 g/dL (6.5-8.0)
[2023-03-12 11:22] LABS: Erythrocyte Sedimentation Rate 2 MM/HR (0-15)
== END 2023-03-12 09:39 | disposition home or self-care (01) ==
LOC: HO.LAB 09:38
PROVIDERS: Absent Provider Nurse Practitioner Family; PCP Internal Medicine; Visit Provider Internal Medicine
DX: M06.9 Rheumatoid arthritis, unspecified (principal)
CPT/HCPCS: 36415; 80053; 85025; 85652; 86140

== ENCOUNTER 2023-03-15 07:05 | Outpatient (REF) | payer OTHER, SELFPAY | END 2023-03-15 07:06 | disposition home or self-care (01) | LOC: HO.HOSX 07:05 | PROVIDERS: Visit Provider Physician Assistant | DX: M06.9 Rheumatoid arthritis, unspecified (principal); M17.11 Unilateral primary osteoarthritis, right knee; R31.9 Hematuria, unspecified; M79.642 Pain in left hand; M79.641 Pain in right hand; Z79.899 Other long term (current) drug therapy | CPT/HCPCS: 99212 ==

== ENCOUNTER 2023-04-07 11:04 | Emergency (ER) | payer OTHER, SELFPAY ==
--- NOTE | ~2023-04-07 | XR_ITS ---
EXAMINATION: XR HAND, RIGHT CLINICAL INFORMATION: Swelling at the third metacarpal phalangeal joint COMPARISON: None available. TECHNIQUE: PA, lateral, and oblique views of the right hand. FINDINGS: The bones and soft tissues are normal. No fracture. Alignment is anatomic. Joint spaces are maintained. No erosions or soft tissue calcifications. XR/XR hand RT min 3V IMPRESSION: Normal right hand.
--- NOTE | 2023-04-07 11:36 | ED.GENADULT ---
HPI - General Adult General Chief complaint: General Medical Stated complaint: body aches, swollen hand Time Seen by Provider: 04/07/23 13:56 Source: patient, RN notes reviewed and old records reviewed Mode of arrival: ambulatory History of Present Illness HPI narrative: 37-year-old male with a past medical history of asthma, GERD, seropositive RA on Methotrexate, Cimzia, and daily Prednisone, presenting to the ED complaining of persistent right hand swelling/joint pain x 1 month, and now w/right great toe joint swelling/pain. Patient was evaluated by his associate quality engineer on 03/13, had similar symptoms at that time was recommended OT for hand strength/pain. Patient admits his last injection Cimzia was on Wednesday, reports compliance with methotrexate and prednisone. Denies recent injury, fever/chills Onset (ago): month(s) Related Data Home Medications Medication Instructions Recorded Confirmed acetaminophen 500 mg tablet 1,000 mg PO BEDTIME PRN pain or 12/01/22 03/15/23 (Tylenol Extra Strength) fever ascorbic acid (vitamin C) 1,000 mg 1 g PO Q6H 12/01/22 03/15/23 tablet cyanocobalamin (vitamin B-12) 1,000 mcg PO DAILY 12/01/22 03/15/23 1,000 mcg tablet multivit,Ca,min-iron 8 mg-folic tab PO 12/01/22 03/15/23 acid 200 mcg-lycopene 600 mcg tablet (Centrum Men) Previous Rx's Medication Instructions Recorded diclofenac sodium 1 % topical gel 2 g topical QID 7 days #100 grams 08/19/20 albuterol sulfate 90 mcg/actuation 2 puff PO Q6H PRN shortness of 03/12/22 aerosol inhaler breath or wheezing 30 days #8.5 grams meloxicam 15 mg tablet 15 mg PO DAILY #30 tabs 12/01/22 pantoprazole 40 mg tablet,delayed 40 mg PO DAILY #30 tabs 12/07/22 release fluticasone propionate 50 1 spray intranasal DAILY #100 mL 12/21/22 mcg/actuation nasal spray,suspension (Flonase Allergy Relief) cholecalciferol (vitamin D3) 50 50 mcg PO DAILY #90 tabs 01/05/23 mcg (2,000 unit) tablet certolizumab pegol 400 mg/2 mL 400 mg (2 mL) subcut Q2W 3 doses 02/19/23 (200 mg/mL x2) subcutaneous #3 ea syringe kit (Cimzia Starter Kit) certolizumab pegol 400 mg/2 mL 400 mg (2 mL) subcut Q4W #1 ea 02/19/23 (200 mg/mL x2) subcutaneous syringe kit (Cimzia) duloxetine 30 mg capsule,delayed 30 mg PO DAILY #30 caps 03/04/23 release (Cymbalta) folic acid 1 mg tablet 1 mg PO DAILY #90 tabs 03/05/23 methotrexate sodium 2.5 mg tablet 25 mg PO QWEEK #40 tabs 04/02/23 prednisone 5 mg tablet 5 mg PO DAILY #30 tabs 04/06/23 Allergies Allergy/AdvReac Type Severity Reaction Status Date / Time Penicillins [PENICILLINS] Allergy Unknown RASH Verified 03/15/23 15:40 morphine AdvReac Itching Verified 03/15/23 15:40 Review of Systems Review of Systems: Constitutional: No Fever, No Chills ENT/Mouth: No Ear Pain, No Nasal Congestion, No sore throat, No Rhinorrhea, No Swallowing Difficulty Cardiovascular: No Chest Pain, No SOB Respiratory: No Cough, No Sputum, No Wheezing Gastrointestinal: No Nausea, No Vomiting, No Diarrhea, No Constipation, No Abdominal pain Genitourinary: No Dysuria, No Urinary Frequency, No Hematuria, No Flank Pain Musculoskeletal: + joint pain, No Myalgias, + Joint Swelling Skin: No Skin Lesions, No rash Neuro: No Weakness, No Numbness, No Paresthesias Yes all other systems are reviewed and are negative Constitutional: Constitutional: Reports as per [facility] Past Medical History Attestation statement: The following information was validated with the patient. 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 Lupus anticoagulant positive Rheumatoid arthritis Surgical History History of surgery on lower extremity Hx of exploratory laparotomy S/P hardware removal S/P ORIF (open reduction internal fixation) fracture Family History Family History Mother Alzheimer disease Hypertension Father Hypertension Social History Social History Household Members: None Housing: Apartment Are you a primary rn homecare to a significant other at home: No Do you presently have visiting nurse or other home services: No Alcohol intake: current Alcohol intake frequency: holidays/special occasions only Patient Tobacco Use Status: Never used Tobacco e-Cigarette/Vaping Use: Never Used Second Hand Smoke Exposure: No Advance Directives: No Advance Directives Information Provided: No service: No Current occupational status: employed 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 Cognitive needs: Yes (cane) Hearing needs: No Vision needs: No Physical Exam ED Vital Signs: Vital Signs - 24 hr 04/07/23 11:37 04/07/23 16:42 Temperature 98.2 F 97.7 F Pulse Rate 80 63 Respiratory Rate 18 16 Blood Pressure 148/100 H 133/98 H Pulse Oximetry 96 98 Oxygen Delivery Method Room Air Room Air BMI result Body Mass Index 31.0 Const General: cooperative, healthy appearing and no acute distress Orientation/consciousness: patient oriented x3 Limitations: no limitations HENMT Head: Yes normal to inspection and Yes atraumatic Ears: hearing grossly normal bilaterally General nose exam: Normal external nose present Face and sinus: Yes normal facial exam Eyes General: appearance normal, both eyes and all related structures EOM: EOMs intact bilaterally Neck Neck: Yes normal visual inspection and Yes no meningeal signs Resp Effort & Inspection: normal respiratory effort and no respiratory distress Cardio Rate: regular rate Peripheral pulses: Peripheral pulses 2+ throughout Skin Rashes: no rashes Wounds: no wounds Neuro General: patient oriented x3, tone normal and no meningeal signs Gait exam (Neuro): Normal gait present Extrem Other: Right 3rd MCP with noted swelling, mild bogginess, no erythema/warmth. Mildly tender. Limited ROM to hand/digits secondary to pain. Neurovascularly intact. No fluctuance/induration Right great toe MCP with mild swelling and tenderness. And be intact. No erythema/warmth Course Course Course Narrative: RME - 37 yo Ethiopian speaking male with history of RA on MTX (follows Jamison martinez/ Marilia MONAHAN here) who presents to the ER for evaluation of body aches and swelling of the right hand for the 1 month. He states the body aches are chronic. He has swelling of the 3rd MCP, warm with mild erythema, slight fluctuance and tenderness on exam. No trauma. Plan: x-ray hand, evaluate in [facility] XR hand RT min 3V IMPRESSION: Normal right hand. -ED medical clerk made contact with rheumatology office, will call back [phone]--associate quality engineer finally called back after 3 attempts, recommended increasing patient's prednisone to 20 mg x 3 days followed by 10 mg x 3 days then patients normal 5 mg daily > on further discussion the patient now reports dysuria. Will obtain UA -UA not infected Results discussed with patient including worrisome signs and symptoms and strict return precautions, and when to return to the emergency department. They verbalized understanding and feel safe for discharge at this time. Medical Decision Making Medical Decision Making MDM Narrative: 37-year-old male with a past medical history of asthma, GERD, seropositive RA on Methotrexate, Cimzia, and daily Prednisone, presenting to the ED complaining of persistent right hand swelling/joint pain x 1 month, and now w/right great toe joint swelling/pain. On exam vital signs stable, NAD, nontoxic appearing, physical exam as noted above. Concern for RA flare. Low suspicion for fracture/injury, abscess, septic joint Plan: X-rays ordered in triage, consult patient's associate quality engineer Please refer to course for remaining clinical decision making, interpretation of labs/imaging results, and discussions with consultants and/or family members. Differential Diagnosis Differential Diagnoses: The differential diagnosis associated with the presentation includes As above Admission/Observation Consideration of admission/observation: Escalation of care including admission/observation considered Consult Healthcare Provider Management of the patient was discussed with: Engine Repairer Lab Data [facility] Lab Attestation statement: I reviewed the patient's lab results. Labs: Lab Results 04/07/23 Range/Units 16:46 Urine Color Yellow Urine Appearance Clear Urine pH 7.5 (5.0-9.0) Ur Specific [place] 1.025 (1.005-1.025) Urine Protein Negative (Neg-Trace) mg/dL Urine Glucose (UA) Negative (Negative) mg/dL Urine Ketones Trace (Negative) mg/dL Urine Blood Negative (Negative) Urine Nitrite Negative (Negative) Ur Leukocyte Esterase Small (1+) H (Negative) Urine RBC 0-2 (0-2) /HPF Urine WBC 0-5 (0-5) /HPF Ur Squamous Epith Cells 0-2 (0-2) /HPF Urine Bacteria None Seen (None Seen) Hyaline Casts 0-2 (0-2) /LPF Radiology Impression Discussion of test interpretation with radiology: I have reviewed the radiologist's reading. External Record Review External record reviewed: Inpatient record, Office record, Outpatient record, Prior outpatient labs, Prior outpatient radiology, Primary care record and Outside ED record Tests considered The following testing was considered but not selected: As above Discharge Plan Discharge Clinical Impression: Rheumatoid arthritis flare Prescriptions: No Action pantoprazole 40 mg tablet,delayed release (DR/EC) 40 mg PO DAILY Qty: 30 6RF fluticasone propionate [Flonase Allergy Relief] 50 mcg/actuation spray,suspension 1 spray intranasal DAILY Qty: 100 0RF Rx Instructions: administer into each nostril cholecalciferol (vitamin D3) 50 mcg (2,000 unit) tablet 50 mcg PO DAILY Qty: 90 0RF Cimzia Starter Kit 400 mg/2 mL (200 mg/mL x 2) syringe kit 400 mg subcut Q2W Qty: 3 0RF Rx Instructions: administer as 2 equally divided doses at 2 different sites in abdomen or thigh x 1 on week 0, 2 and 4. Then administer 400mg subcutaneous every 4 weeks (this will be a separate order) Cimzia 400 mg/2 mL (200 mg/mL x 2) syringe kit 400 mg subcut Q4W Qty: 1 0RF Rx Instructions: administer as 2 equally divided doses at 2 different sites in abdomen or thigh. Administer 4 weeks after last starter kit dose. duloxetine [Cymbalta] 30 mg capsule,delayed release(DR/EC) 30 mg PO DAILY Qty: 30 0RF folic acid 1 mg tablet 1 mg PO DAILY Qty: 90 1RF methotrexate sodium 2.5 mg tablet 25 mg PO QWEEK Qty: 40 1RF prednisone 5 mg tablet 5 mg PO DAILY Qty: 30 1RF diclofenac sodium 1 % gel 2 g topical QID 7 Days Qty: 100 0RF Rx Instructions: apply to right knee albuterol sulfate 90 mcg/actuation HFA aerosol inhaler 2 puff PO Q6H PRN (Reason: shortness of breath or wheezing) 30 Days Qty: 8.5 6RF cyanocobalamin (vitamin B-12) 1,000 mcg tablet 1,000 mcg PO DAILY Centrum Men 8 mg iron- 200 mcg-600 mcg tablet PO acetaminophen [Tylenol Extra Strength] 500 mg tablet 1,000 mg PO BEDTIME PRN (Reason: pain or fever) ascorbic acid (vitamin C) 1,000 mg tablet 1 g PO Q6H meloxicam 15 mg tablet 15 mg PO DAILY Qty: 30 0RF
[2023-04-07 11:37] VITALS: BP 148/100; PULSE 80; RESP 18; TEMP 36.8; O2SAT 96; BMI 31.0
[2023-04-07 16:42] VITALS: BP 133/98; PULSE 63; RESP 16; TEMP 36.5; O2SAT 98
--- NOTE | 2023-04-07 16:45 | MHC.EDTECH ---
pt vitals sign taken ,and urine sample collected and sent to lab .
[2023-04-07 16:58] LABS: Appearance Urine Clear; Color Urine Yellow; Glucose Urine UA Negative (Negative); Leukocyte Esterase Urine Small (1+) (Negative); Nitrite Urine Negative (Negative); PH 7.5 (5.0-9.0); Specific Gravity - Urine 1.025 (1.005-1.025); UMIC TRIGGER UACC YES; Urine Blood Negative (Negative); Urine Ketones Trace mg/dL (Negative); Urine Protein Negative (Neg-Trace)
[2023-04-07 17:41] LABS: Bacteria Urine None Seen (None Seen); Hyaline Casts Urine 0-2 /LPF (0-2); RBC Urine 0-2 /HPF (0-2); Squamous Epithelial Cell Urine 0-2 /HPF (0-2); UACC Culture Trigger YES; WBC Urine 0-5 /HPF (0-5)
[2023-04-07 18:17] VITALS: BP 136/92; PULSE 72; RESP 16; TEMP 36.4; O2SAT 98
== END 2023-04-07 18:24 | disposition home or self-care (01) ==
PROVIDERS: Physician Assistant; Emergency Provider Emergency Medicine; PCP Internal Medicine
DX: M06.9 Rheumatoid arthritis, unspecified (principal); M79.89 Other specified soft tissue disorders; Z79.899 Other long term (current) drug therapy; D68.62 Lupus anticoagulant syndrome; J45.909 Unspecified asthma, uncomplicated
CPT/HCPCS: 73130; 81001; 81003; 87086; 99283; 99284

== ENCOUNTER 2023-05-24 13:49 | Outpatient (AMB) | payer OTHER, SELFPAY ==
--- NOTE | 2023-05-24 14:03 | MHC.OFFVIS ---
Intake Vital Signs 05/24/23 14:04 Height 5 ft 9 in Weight 204 lb 2.369 oz BMI 30.1 BP 118/82 Blood Pressure Location Rt brachial Position Sitting Pulse 95 Pulse Source Pulse Oximeter Temp 98.4 F Temp Source Skin Pulse Oximetry (%) 96 Intake Visit Reasons: Rheumatoid arthritis Intake Note: Pt seen today for RA follow up. Pain and swelling bl hands; bl knee and ankle pain- difficult to walk at times. States he is not interested in OT because he feels it will not help him. 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 Professor Name: Dipesh [id number] Information Interpreted: clinical only Accompanied by: Self / Same As Patient Allergies Penicillins [PENICILLINS] Allergy (Unknown, Verified 05/24/23 14:08) RASH morphine Adverse Reaction (Verified 05/24/23 14:08) Itching Medication List - Last Reconciled 05/24/23 by Ivan Castrejon MD acetaminophen (Tylenol Extra Strength) 1,000 mg PO BEDTIME PRN albuterol sulfate 90 mcg/actuation 2 puffs PO Q6H PRN 30 days ascorbic acid (vitamin C) 1 g PO Q6H certolizumab pegol (Cimzia) 400 mg (2 mL) subcut Q4W cholecalciferol (vitamin D3) 50 mcg PO DAILY cyanocobalamin (vitamin B-12) 1,000 mcg PO DAILY diclofenac sodium 1% 2 grams topical QID 7 days duloxetine (Cymbalta) 30 mg PO DAILY fluticasone propionate 50 mcg/actuation (Flonase Allergy Relief) 1 spray intranasal DAILY folic acid 1 mg PO DAILY meloxicam 15 mg PO DAILY methotrexate sodium 25 mg (10 x 2.5 mg) PO QWEEK mv,Ca,vto-ksfl-BF-lycopene 8 mg iron- 200 mcg-600 mcg (Centrum Men) tabs PO pantoprazole 40 mg PO DAILY prednisone 10 mg PO DAILY prednisone 5 mg PO BID HPI HPI Comments History of Present Illness Details The patient returns for evaluation of his rheumatoid arthritis. The visit is facilitated through the use of the iPad manager fine dining. He had last seen Izzy about 2 months ago. They had just begun, a few weeks, before Cimzia 200 mg subcutaneous injections every 2 weeks. He remains on methotrexate 25 mg weekly, folic acid 1 mg daily, and his prednisone was increased to 10 mg daily back in February. He reports he is still discouraged by the continued pain, mostly in his hands and left ankle. He notes swelling in the hands as well. He does not think he has had any side effects with the medications. He is out of work currently and he is depressed about his continued disease activity. There was concern about some hematuria and urinary symptoms but he does not seem to notice that anymore. [facility] Medical History Arthritis Asthma GERD (gastroesophageal reflux disease) History of febrile seizure custodial methotrexate user Lupus anticoagulant positive Rheumatoid arthritis Surgical History History of surgery on lower extremity Hx of exploratory laparotomy S/P hardware removal S/P ORIF (open reduction internal fixation) fracture Family History Mother Alzheimer disease Hypertension Father Hypertension Social History Household Members: None Housing: Apartment Are you a primary child care provider to a significant other at home: No Do you presently have visiting nurse or other home services: No Alcohol intake: never Patient Tobacco Use Status: Never used Tobacco e-Cigarette/Vaping Use: Never Used Second Hand Smoke Exposure: No service: No Current occupational status: employed 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 Negative for appetite change, weight change, fever, chills, malaise Eyes Details: Negative for vision change, dry eyes,headaches and dizziness ENT Details: Negative for hearing change, tinnitus, oral ulcer, nose bleeds and oral dryness. Card Details: Negative chest pain, edema and syncope Resp Details: Negative for SOB, cough and wheezing GI Details: Negative indigestion/heartburn, nausea, abdominal pain, bowel changes, diarrhea, constipation and bloody stool. Details: Negative for dysuria, hematuria, nocturia, decreased force/flow and genital discharge Skin/Breast Details: Negative for itching, rash, hives, Raynaud's symptoms, sun sensitivity, and skin cancer Psych Details: Feels more down about his disease progression. He has been missing doses of the Cymbalta because it was not refilled. Negative for anxiety Rustam/Lymph Details: Negative for excessive bruising or bleeding. Physical Exam Vital Signs: Last Vital Signs Temp 98.4 F 05/24/23 14:04 Pulse 95 05/24/23 14:04 BP 118/82 05/24/23 14:04 Pulse Ox 96 05/24/23 14:04 BMI result Body Mass Index 30.1 APPEARANCE: Patient in no acute distress EYES no redness, pupils equal and reactive to light, eyelids normal EXTREMITIES: No edema, no calf tenderness, normal peripheral pulses. JOINT EXAM: Cervical Spine:? Full range of motion with mild pain at the extremes. No tenderness. Thoracic Spine:?No tenderness on palpation. Lumbar Spine: Alignment normal.? Full range of motion without pain, tenderness reported to palpation of the lumbar spine. Hands: LEFT: Normal range of motion.? Mild swelling at the 1st 3 MCP joints. These have mild tenderness.. There is some thickening at the thumb IP without tenderness. ? RIGHT: Normal range of motion.? Mild swelling and tenderness at the 1st 3 MCP joints. Swelling and tenderness are most prominent at the 2nd MCP. There is mild tenderness and slight swelling at the thumb IP and the 5th PIP joints Wrists:? Normal pain free range of motion.? Slight dorsal tenderness but no swelling, increased warmth or erythema.? ? ? Elbows: Left: Slight pain with extremes of flexion extension with some mild tenderness but no swelling. Right: Normal pain-free range of motion without tenderness, swelling, increased warmth or erythema. Shoulders: LEFT:? Mild pain with extremes of normal range of motion. There is mild anterior tenderness without adenopathy, swelling or weakness..? RIGHT: Full range of motion this with slight discomfort at the extremes of motion. Mild anterior tenderness without swelling, adenopathy or weakness.? Hip bursa:? Mild trochanteric tenderness. Knees: LEFT:?? Mild pain with extremes of normal range of motion. There is mild patellofemoral crepitus and medial tenderness. No effusion, soft tissue swelling, increased warmth or erythema.? RIGHT:? Normal range of motion.? Tenderness to palpation at the medial and lateral joint lines.? No increased warmth or erythema.? No effusion or crepitation. Ankles: LEFT:? Full range of motion with mild swelling. Mild tenderness and pain particularly on the medial aspect. No redness or warmth. ? RIGHT: Full range of motion without tenderness, swelling, increased warmth or erythema. Feet:? Full range of motion without tenderness, swelling, increased warmth or erythema. Results Reviewed Results Reviewed: Laboratory Tests 03/12/23 03/12/23 03/12/23 09:54 09:54 09:54 WBC 8.6 Hct 44.7 ESR 2 Creatinine 0.92 AST 18 ALT 18 C-Reactive Protein 0.20 Assessment & Plan Assessment & Plan (1) Osteoarthritis of right knee: Code(s): M17.11 - Unilateral primary osteoarthritis, right knee (2) Recurrent depression: Code(s): F33.9 - Major depressive disorder, recurrent, unspecified (3) custodial current use of immunosuppressive drug: Code(s): Z79.899 - Other termite inspector (current) drug therapy (4) Rheumatoid arthritis: Comment: Methotrexate: 12/2018- present Humira: October 2019-January 2021-ineffective Rinvoq: January 2021-patient went to [place] in did not start the medication Enbrel: December 2021-improved symptoms patient self-stopped due to fatigue, sweating, abdominal pain, hematuria likely not related to Enbrel. Code(s): M06.9 - Rheumatoid arthritis, unspecified Plan Rheumatoid arthritis with still pain and swelling in many joints. This is in spite of the last CRP and sed rate being normal. He could have developed the scenario where there has been joint damage and secondary OA but radiographs had not really confirm that in the hands. The right knee on the other hand has some OA. I think we need to push father with his antirheumatic therapy. He seems to have failed both Humira and Cimzia so we will try to add Rinvoq to his methotrexate. This had been tried in the past but he never took the prescription because he was out of the state. We will check lab work today and if that looks okay aim to work with the insurance to get approval for the Rinvoq or a similar LINUS 1 inhibitor. I will also refill his Cymbalta. I think he gets depressed about his illness and that interferes with his functionality. He does not force any desires for self-harm however. I gave him some written information on Rinvoq to review. Follow-up in 2 months is arranged. Orders: Orders Erythrocyte Sedimentation Rate Today M06.9 - Rheumatoid arthritis, unspecified Complete Blood Count Auto Diff Today M06.9 - Rheumatoid arthritis, unspecified Comprehensive Met. Panel Today M06.9 - Rheumatoid arthritis, unspecified C Reactive Protein Today M06.9 - Rheumatoid arthritis, unspecified Medications: New prednisone 5 mg PO BID 60 tabs 3RF M06.9 - Rheumatoid arthritis, unspecified Changed From prednisone Please take 20 mg (2 tabs) x3 days, followed by 10 mg (1 tab) x3 days 10 mg PO DIRECTED 9 tabs 0RF To prednisone 10 mg PO DAILY Refilled duloxetine (Cymbalta) 30 mg PO DAILY 30 caps 3RF F33.9 - Major depressive disorder, recurrent, unspecified Coding Level of Care Code Est Pt Level 4 (46776) Diagnoses Osteoarthritis of right knee M17.11 Recurrent depression F33.9 terminal supervisor current use of immunosuppressive drug Z79.899 Rheumatoid arthritis M06.9
[2023-05-24 14:04] VITALS: BP 118/82; PULSE 95; TEMP 36.9; O2SAT 96; BMI 30.1
== END 2023-05-24 15:15 | disposition home or self-care (01) ==
PROVIDERS: PCP Internal Medicine; Visit Provider Internal Medicine Rheumatology
DX: M17.11 Unilateral primary osteoarthritis, right knee (principal); F33.9 Major depressive disorder, recurrent, unspecified; Z79.899 Other long term (current) drug therapy; M06.9 Rheumatoid arthritis, unspecified
CPT/HCPCS: 99214

== ENCOUNTER → 2023-05-24 13:49 | Outpatient (BNVA) | payer OTHER, SELFPAY | PROVIDERS: PCP Internal Medicine; Visit Provider Internal Medicine Rheumatology | DX: M06.9 Rheumatoid arthritis, unspecified (principal); M17.11 Unilateral primary osteoarthritis, right knee; F33.9 Major depressive disorder, recurrent, unspecified; Z79.899 Other long term (current) drug therapy | CPT/HCPCS: 99212 ==

== ENCOUNTER 2023-06-25 10:02 | Outpatient (AMB) | payer OTHER, SELFPAY ==
--- NOTE | 2023-06-25 10:04 | A.OFFVIS_ITS ---
Intake Vital Signs 06/25/23 10:11 Height 5 ft 9 in Weight 204 lb BMI 30.1 Intake Visit Reasons: OV - Right Knee Pain - Injection 05/06/22 Intake Note: Negrito is a 37 year old male who presents today for a follow up appointment of his right knee. Last Injection was done on 05/06/22. Patient reports that he is having continued pain, he ambulates with a cane. The knee feels unstable and weak as it feels like it is going to give out on him. Clinical Nurse Educator Required: Yes Clinical Nurse Educator Name: [id number] Allergies Penicillins [PENICILLINS] Allergy (Unknown, Verified 05/24/23 14:08) RASH morphine Adverse Reaction (Verified 05/24/23 14:08) Itching HPI OV - Right Knee Pain - Injection 05/06/22 HPI Details Negrito is a 37 year old man who returns to discuss his right knee pain. He has a hx of right ACL reconstruction by Dr. Hernández DOS: 11/07/20, and a sterois injection by TANIYA Peña on 05/06/22. He continues to complain of constant pain with activity, along with weakness and instability in his knee. He walks using a cane. He says the previous injection gave him [ ] relief. 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 Lupus anticoagulant positive Rheumatoid arthritis Surgical History History of surgery on lower extremity Hx of exploratory laparotomy S/P hardware removal S/P ORIF (open reduction internal fixation) fracture Family History Mother Alzheimer disease Hypertension Father Hypertension Social History Household Members: None Housing: Apartment Are you a primary care program resident to a significant other at home: No Do you presently have visiting nurse or other home services: No Alcohol intake: never Patient Tobacco Use Status: Never used Tobacco e-Cigarette/Vaping Use: Never Used Second Hand Smoke Exposure: No service: No Current occupational status: employed 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 Cognitive needs: Yes (cane) Hearing needs: No Vision needs: No Review of Systems Const All systems reviewed & are unremarkable except as noted in HPI and below Physical Exam Vital Signs: BMI result Body Mass Index 30.1 Const General: no acute distress, alert and awake Orientation/consciousness: patient oriented x3 HEENT Head: Yes normocephalic and Yes atraumatic Eyes EOM: EOMs intact bilaterally Resp Effort & Inspection: normal respiratory effort and able to speak in complete sentences Cardio Jugular venous distension: no JVD Skin General skin exam: turgor normal Rashes: no rashes Neuro General: patient oriented x3 Extrem Other: Right Knee: 2+ Richard's No effusion Psych Appearance: grossly normal Affect: normal affect Attitude: cooperative Results Reviewed Results Reviewed: I personally reviewed relevant radiographs. Post surgical changes related to ACL recon. Assessment & Plan Assessment & Plan (1) S/P ACL reconstruction: Code(s): Z98.890 - Other specified postprocedural states Plan: This is a 37 year old man with right knee chronic pain, S/P ACL reconstruction, DOS: 11/07/[address] Hernández. He has pain with daily activity, worse with twisting. He feels weakness and unstable. He ambulates with a cane and feels limited in his ADLs. He had limited relief from a steroid injection by TANIYA Peña on 05/06/22. His ACL feels markedly unstable. I ordered an MRI to assess. Plan Scribed for Jeferson Thayer MD by Wellington Crain, manager medical affairs, on 06/25/23 at 10:30 AM, EST. Coding Level of Care Code Est Pt Level 4 (55465) Diagnoses S/P ACL reconstruction Z98.890
[2023-06-25 10:11] VITALS: BMI 30.1
== END 2023-06-25 10:26 | disposition home or self-care (01) ==
PROVIDERS: PCP Internal Medicine; Visit Provider Orthopaedic Surgery
DX: M25.561 Pain in right knee (principal)
CPT/HCPCS: 99214

== ENCOUNTER → 2023-06-25 10:02 | Outpatient (BNVA) | payer OTHER, SELFPAY | PROVIDERS: PCP Internal Medicine; Visit Provider Orthopaedic Surgery | DX: Z98.890 Other specified postprocedural states (principal) | CPT/HCPCS: 99212 ==

== ENCOUNTER 2023-07-01 12:33 | Outpatient (REF) | payer OTHER, SELFPAY ==
[2023-07-01 12:46] LABS: MANUAL DIFF FLAG NO
[2023-07-01 13:52] LABS: Basophils Percent Auto 0.5 % (0-2); Eosinophils Absolute Auto 0.1 X10*3/uL (0.0-0.4); Eosinophils Percent Auto 1.1 % (0-4); Hematocrit 43.7 % (42.0-52.0); Imm Gran Abs Auto 0.01 X10*3/uL (0.00-0.03); Imm Gran Pct Auto 0.2 % (0.0-0.4); Lymphocytes Absolute Auto 2.6 X10*3/uL (1.2-4.9); Lymphocytes Percent Auto 41.7 % (20-40); Mean Corpuscular HGB Conc 34.3 g/dl (31.0-36.0); Mean Corpuscular Hemoglobin 32.5 pg (27.0-33.0); Mean Corpuscular Volume 94.6 fL (80.0-98.0); Mean Platelet Volume 8.9 fL (9.4-12.4); Monocytes Absolute Auto 0.6 X10*3/uL (0.1-1.2); Monocytes Percent Auto 9.3 % (2-11); Neutrophils Absolute Auto 2.9 x10*3/uL (2.0-8.3); Neutrophils Percent Auto 47.2 % (45-73); Platelet Count 310 X10*3/uL (160-400); Red Blood Count 4.62 X10*6/uL (4.60-5.80); Red Cell Distribution Width 13.7 % (11.0-16.0); White Blood Count 6.1 X10*3/uL (4.8-10.8)
[2023-07-01 14:35] LABS: Alanine Aminotransferase 31 U/L (0-40); Albumin Level 3.9 g/dL (3.5-5.0); Alkaline Phosphatase 85 U/L (39-117); Anion Gap 9 (12-20); Aspartate Amino Transferase 30 U/L (5-37); Bilirubin Total 0.7 mg/dL (0.0-1.0); Blood Urea Nitrogen 14 mg/dL (9-16); C Reactive Protein 0.91 mg/dL (< or = 0.50); Calcium 9.1 mg/dL (8.4-10.2); Carbon Dioxide 26 mmol/L (22-29); Chloride 111 mmol/L (96-108); Estimated Glomerular Filt Rate > 60; Glucose Random 94 mg/dL (60-115); Potassium 3.7 mmol/L (3.3-5.1); Sodium 142 mmol/L (135-145); Total Protein 7.2 g/dL (6.5-8.0)
[2023-07-01 14:44] LABS: Erythrocyte Sedimentation Rate 11 MM/HR (0-15)
== END 2023-07-01 12:34 | disposition home or self-care (01) ==
LOC: HO.LAB 12:33
PROVIDERS: PCP Internal Medicine; Visit Provider Internal Medicine Rheumatology
DX: M06.9 Rheumatoid arthritis, unspecified (principal)
CPT/HCPCS: 36415; 80053; 85025; 85652; 86140

== ENCOUNTER 2023-07-26 13:52 | Outpatient (AMB) | payer OTHER, SELFPAY ==
--- NOTE | 2023-07-26 13:55 | A.OFFVIS_ITS ---
Intake Vital Signs 07/26/23 14:05 Height 5 ft 9 in Weight 202 lb 6.15 oz BMI 29.9 BP 118/92 H Blood Pressure Location Rt brachial Position Sitting Pulse 92 Pulse Source Pulse Oximeter Temp 98 F Temp Source Skin Pulse Oximetry (%) 98 Oxygen Delivery Method Room Air Intake Visit Reasons: 2 mnts f/u for RA Intake Note: Patient presents today to follow up on RA. Workers' Compensation Magistrate Required: Yes Workers' Compensation Magistrate Language: Waste Cotton Cleaner Name: Yanet [id number] Information Interpreted: clinical only Accompanied by: Self / Same As Patient Allergies Penicillins [PENICILLINS] Allergy (Unknown, Verified 07/26/23 13:55) RASH morphine Adverse Reaction (Verified 07/26/23 13:55) Itching HPI HPI Comments History of Present Illness Details The patient returns for evaluation of his rheumatoid arthritis. The visit today is facilitated through the use of the iPad translating service. At his last visit in late April we had decided to stop the Cimzia which he says he has carried out. He did have lab work done finally in June. He remains on prednisone 5 mg b.i.d., methotrexate 25 mg orally once a week, meloxicam 15 mg daily, folic acid 1 mg daily and 40 mg daily Cymbalta. He still reports he has pain in the right wrist, MCPs in both hands, left lower back, and left ankle. He does not note any side effects with these medications. He has been following in Orthopedics for the right knee pain. They feel he has instability in the knee related to ACL tears. An MRI has been requested but not yet scheduled. He wears a brace on the area which is helpful to some degree. 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 Rheumatoid arthritis Arthritis Asthma Surgical History (Updated 07/26/23 @ 16:42 by Ivan Castrejon MD) History of surgery on lower extremity Hx of exploratory laparotomy S/P hardware removal S/P ORIF (open reduction internal fixation) fracture Family History Mother Alzheimer disease Hypertension Father Hypertension Social History Household Members: None Housing: Apartment Are you a primary child care centre director to a significant other at home: No Do you presently have visiting nurse or other home services: No Alcohol intake: never Patient Tobacco Use Status: Never used Tobacco e-Cigarette/Vaping Use: Never Used Second Hand Smoke Exposure: No service: No Current occupational status: employed 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 Negative for appetite change, weight change, fever, chills, malaise Eyes Details: Negative for vision change, dry eyes,headaches and dizziness ENT Details: Negative for hearing change, tinnitus, oral ulcer, nose bleeds and oral dryness. Card Details: Negative chest pain, edema and syncope Resp Details: Negative for SOB, cough and wheezing GI Details: Negative indigestion/heartburn, nausea, abdominal pain, bowel changes, diarrhea, constipation and bloody stool. Skin/Breast Details: Negative for itching, rash, hives, Raynaud's symptoms, sun sensitivity, and skin cancer Endo Details: Negative for polyuria and polydypsia Rustam/Lymph Details: Negative for excessive bruising or bleeding. Physical Exam Vital Signs: Last Vital Signs Temp 98 F 07/26/23 14:05 Pulse 92 07/26/23 14:05 BP 118/92 H 07/26/23 14:05 Pulse Ox 98 07/26/23 14:05 Oxygen Delivery Method Room Air 07/26/23 14:05 BMI result Body Mass Index 29.9 APPEARANCE: Patient in no acute distress EYES no redness, pupils equal and reactive to light, eyelids normal JOINT EXAM: Cervical Spine:? Full range of motion with mild pain at the extremes. No tenderness. Thoracic Spine:?No tenderness on palpation. Lumbar Spine: Alignment normal.? Full range of motion without pain, tenderness reported to palpation of the lumbar spine. Hands: LEFT: Normal range of motion.? Mild swelling and tenderness at the 1st 3 MCP joints.There is some thickening at the thumb IP without tenderness. ? RIGHT: Normal range of motion.? Mild swelling and tenderness at the 1st 3 MCP and 5th joints. Swelling and tenderness are most prominent at the 2nd MCP. There is mild tenderness and slight swelling at the thumb IP and the 5th PIP joints Wrists:? right: Slight pain with flexion extension at 60 degrees. Mild tenderness but no swelling. Left: Normal pain free range of motion.? Slight dorsal tenderness but no swelling, increased warmth or erythema.? ? ? Elbows: Right:: Slight pain with extremes of flexion extension with some mild tenderness but no swelling. Left: Normal pain-free range of motion without tenderness, swelling, increased warmth or erythema. Shoulders: LEFT:? Mild pain with Abduction at 120 degrees with extremes of internal or external rotation.. There is mild anterior tenderness without adenopathy, swelling or weakness..? RIGHT: Full range of motion this with slight discomfort at the extremes of motion. Mild anterior tenderness without swelling, adenopathy or weakness.? Hip bursa:? Mild trochanteric tenderness. Knees: LEFT:?? Mild pain with extremes of normal range of motion. There is mild patellofemoral crepitus and medial tenderness. No effusion, soft tissue swelling, increased warmth or erythema.? RIGHT:? Normal range of motion; Mild pain with more than 45 degrees of flexion or extension..? Tenderness to palpation at the medial and lateral joint lines.? No increased warmth or erythema.? No effusion or crepitation. Ankles: LEFT:? Full range of motion with mild swelling. Mild tenderness and pain particularly on the medial aspect. No redness or warmth. ? RIGHT: Full range of motion without tenderness, swelling, increased warmth or erythema. Feet:? Full range of motion with Mild tenderness at the 1st MTP joints which may be slightly swollen. Elsewhere there is no tenderness, swelling, increased warmth or erythema. Results Reviewed Results Reviewed: Laboratory Tests 07/01/23 12:43 WBC 6.1 Hgb 15.0 ESR 11 Creatinine 0.82 AST 30 ALT 31 C-Reactive Protein 0.91 H Assessment & Plan Assessment & Plan (1) detention current use of immunosuppressive drug: Code(s): Z79.899 - Other exterminator (current) drug therapy (2) Osteoarthritis of right knee: Code(s): M17.11 - Unilateral primary osteoarthritis, right knee (3) History of reconstruction of anterior cruciate ligament tear: Code(s): Z98.890 - Other specified postprocedural states (4) Rheumatoid arthritis: Comment: Methotrexate: 12/2018- present Humira: October 2019-January 2021-ineffective Cimzia January 2023 through April 2023: No improvement Rinvoq: January 2021-patient went to [place] in did not start the medication Enbrel: December 2021-improved symptoms patient self-stopped due to fatigue, sweating, abdominal pain, hematuria likely not related to Enbrel. Code(s): M06.9 - Rheumatoid arthritis, unspecified Qualifiers: Rheumatoid arthritis location: multiple sites Rheumatoid factor presence: with rheumatoid factor Qualified Code(s): M05.79 - Rheumatoid arthritis with rheumatoid factor of multiple sites without organ or systems involvement Plan The patient seems to still have ongoing active rheumatoid arthritis with tenderness in multiple joints with some swelling as well. However the acute phase reactants were not that elevated but they did come up when he stopped the Cimzia. He could have a fair amount of destructive disease giving him irreversible damage and symptoms but I think it is worth a try to add an additional DMARD for him. We will see if we can get approval for Rinvoq 15 mg once a day. That was approved in the past but he decided not to take it at the time as [place]. I gave him some written information on the drug to review. He will add this to the current dose of methotrexate which seems to be tolerated given his normal blood work. We will see if we can get the drug approved and let him know about where to obtain at. A follow-up in 6 weeks is recommended. We will probably do blood work at that juncture. He will follow-up is plans with the MRI for the evaluation of the right knee wary probably has some posttraumatic and postoperative osteoarthritis. Medications: New upadacitinib ER (Rinvoq) 15 mg PO DAILY 30 tabs 2RF M06.9 - Rheumatoid arthritis, unspecified Coding Level of Care Code Est Pt Level 3 (48494) Diagnoses detention current use of immunosuppressive drug Z79.899 Osteoarthritis of right knee M17.11 History of reconstruction of anterior cruciate ligament tear Z98.890 Rheumatoid arthritis involving multiple sites with positive rheumatoid factor M05.79 Rheumatoid arthritis location: multiple sites Rheumatoid factor presence: with rheumatoid factor
[2023-07-26 14:05] VITALS: BP 118/92; PULSE 92; TEMP 36.6; O2SAT 98; BMI 29.9
== END 2023-07-26 14:47 | disposition home or self-care (01) ==
PROVIDERS: PCP Internal Medicine; Visit Provider Internal Medicine Rheumatology
DX: Z79.899 Other long term (current) drug therapy (principal); M17.11 Unilateral primary osteoarthritis, right knee; Z98.890 Other specified postprocedural states; M05.79 Rheumatoid arthritis with rheumatoid factor of multiple sites without organ or systems involvement
CPT/HCPCS: 99213

== ENCOUNTER → 2023-07-26 13:52 | Outpatient (BNVA) | payer OTHER, SELFPAY | PROVIDERS: PCP Internal Medicine; Visit Provider Internal Medicine Rheumatology | DX: M05.79 Rheumatoid arthritis with rheumatoid factor of multiple sites without organ or systems involvement (principal); M17.11 Unilateral primary osteoarthritis, right knee; D68.62 Lupus anticoagulant syndrome; Z98.890 Other specified postprocedural states; Z79.52 Long term (current) use of systemic steroids; Z79.631 Long term (current) use of antimetabolite agent | CPT/HCPCS: 99212 ==

== ENCOUNTER 2023-09-13 13:55 | Outpatient (AMB) | payer OTHER, SELFPAY ==
[2023-09-13 14:13] VITALS: BP 116/80; PULSE 89; TEMP 36.9; O2SAT 98; BMI 29.7
--- NOTE | 2023-09-13 14:13 | A.OFFVIS_ITS ---
Intake Vital Signs 09/13/23 14:13 Height 5 ft 9 in Weight 201 lb 4.513 oz BMI 29.7 BP 116/80 Blood Pressure Location Rt brachial Position Sitting Pulse 89 Pulse Source Pulse Oximeter Temp 98.4 F Temp Source Skin Pulse Oximetry (%) 98 Oxygen Delivery Method Room Air Intake Visit Reasons: ra Intake Note: Patient presents today to follow up on RA. Reports worsening right knee pain. States Dr. Thayre would order right knee MRI but has not received call. Elementary Reading Specialist Required: Yes Elementary Reading Specialist Language: Automobile Dealer Name: Yamilka [id number] Information Interpreted: clinical only Accompanied by: Self / Same As Patient Allergies Penicillins [PENICILLINS] Allergy (Unknown, Verified 09/13/23 14:13) RASH morphine Adverse Reaction (Verified 09/13/23 14:13) Itching Medication List - Last Reconciled 09/13/23 by Ivan Castrejon MD acetaminophen (Tylenol Extra Strength) 1,000 mg PO BEDTIME PRN albuterol sulfate 90 mcg/actuation 2 puffs PO Q6H PRN 30 days ascorbic acid (vitamin C) 1 g PO Q6H cholecalciferol (vitamin D3) 50 mcg PO DAILY cyanocobalamin (vitamin B-12) 1,000 mcg PO DAILY duloxetine (Cymbalta) 30 mg PO DAILY fluticasone propionate 50 mcg/actuation (Flonase Allergy Relief) 1 spray intranasal DAILY folic acid 1 mg PO DAILY meloxicam 15 mg PO DAILY methotrexate sodium 25 mg (10 x 2.5 mg) PO QWEEK mv,Ca,giy-qaks-CM-lycopene 8 mg iron- 200 mcg-600 mcg (Centrum Men) tabs PO pantoprazole 40 mg PO DAILY prednisone one tab in AM and 1/2 tab in PM tofacitinib (Xeljanz) 5 mg PO BID HPI HPI Comments History of Present Illness Details The patient returns today for evaluation of his rheumatoid arthritis. We used the [employer] translating service to facilitate the visit. At his last visit I thought his disease needed more antirheumatic drugs so we tried to get Rinvoq. That was not approved but they did approve Xeljanz 5 mg b.i.d.. He seems to be tolerating that okay for the past month. He remains on prednisone 5 mg b.i.d., folic acid 1 mg daily, meloxicam 15 mg daily, duloxetine 30 mg daily and methotrexate 25 mg once a week. He does not think he has had any side effects with the medications at this point. He did see Orthopedics. Instability in the right knee was found and MRI was ordered but he has yet to have it scheduled. Overall he notes still the MCPs seem swollen and he had decreased maintenance planning clerk strength. He thinks the pain is a bit better than before starting the Xeljanz. The right knee is bothersome when he tries to do more weight-bearing activities. [facility] Medical History (Updated 09/13/23 @ 15:42 by Ivan Castrejon MD) Lupus anticoagulant positive GERD (gastroesophageal reflux disease) History of febrile seizure FPC methotrexate user Rheumatoid arthritis Arthritis Asthma Surgical History History of surgery on lower extremity Hx of exploratory laparotomy S/P hardware removal S/P ORIF (open reduction internal fixation) fracture Family History Mother Alzheimer disease Hypertension Father Hypertension Social History Household Members: None Housing: Apartment Are you a primary manager managed care to a significant other at home: No Do you presently have visiting nurse or other home services: No Alcohol intake: never Patient Tobacco Use Status: Never used Tobacco e-Cigarette/Vaping Use: Never Used Second Hand Smoke Exposure: No service: No Current occupational status: employed 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 Negative for appetite change, weight change, fever, chills, malaise Eyes Details: Negative for vision change, dry eyes,headaches and dizziness ENT Details: Negative for hearing change, tinnitus, oral ulcer, nose bleeds and oral dryness. Card Details: Negative chest pain, edema and syncope Resp Details: Negative for SOB, cough and wheezing GI Details: Negative indigestion/heartburn, nausea, abdominal pain, bowel changes, diarrhea, constipation and bloody stool. Skin/Breast Details: Negative for itching, rash, hives, Raynaud's symptoms, sun sensitivity, and skin cancer Psych Details: Negative for anxiety, depression and stress Endo Details: Negative for polyuria and polydypsia Maegan/Lymph Details: Negative for excessive bruising or bleeding. Physical Exam Vital Signs: Last Vital Signs Temp 98.4 F 09/13/23 14:13 Pulse 89 09/13/23 14:13 BP 116/80 09/13/23 14:13 Pulse Ox 98 09/13/23 14:13 Oxygen Delivery Method Room Air 09/13/23 14:13 BMI result Body Mass Index 29.7 APPEARANCE: Patient in no acute distress JOINT EXAM: Cervical Spine:? Full range of motion with mild pain at the extremes. No tenderness. Thoracic Spine:?No tenderness on palpation. Lumbar Spine: Alignment normal.? Full range of motion without pain, tenderness reported to palpation of the lumbar spine. Hands: LEFT: Normal range of motion.? Mild swelling and tenderness at the 2nd a nd 5th MCP joints.There is some thickening at the thumb IP without tenderness. ? RIGHT: Normal range of motion.? Mild swelling and tenderness at the 1st 3 and 5th MCP joints. Swelling and tenderness are most prominent at the 2nd MCP. There is mild tenderness and slight swelling at the thumb IP and the 5th PIP joints Wrists:? right: Slight pain with flexion extension at 60 degrees. Mild tenderness but no swelling. Left: Normal pain free range of motion.? Slight dorsal tenderness but no swelling, increased warmth or erythema.? ? ? Elbows: Right:: Slight pain with extremes of flexion extension with some mild tenderness but no swelling. Left: Normal pain-free range of motion without tenderness, swelling, increased warmth or erythema. Shoulders: LEFT:? Mild pain with Abduction at 120 degrees with extremes of internal or external rotation.. There is mild anterior tenderness without adenopathy, swelling or weakness..? RIGHT: Full range of motion this with slight discomfort at the extremes of motion. Mild anterior tenderness without swelling, adenopathy or weakness.? Hip bursa:? Mild trochanteric tenderness. Knees: LEFT:?? Mild discomfort with extremes of normal range of motion. There is mild patellofemoral crepitus and medial tenderness. No effusion, soft tissue swelling, increased warmth or erythema.? RIGHT:? Normal range of motion; Mild pain with more than 45 degrees of flexion or extension. There is AP motion instability present.? Tenderness to palpation at the medial and lateral joint lines.? No increased warmth or eryt maegan.? No effusion or crepitation. Ankles: LEFT:? Full range of motion with mild swelling. Mild tenderness and pain particularly on the medial aspect. No redness or warmth. ? RIGHT: Full range of motion without tenderness, swelling, increased warmth or erythema. Feet:? Full range of motion with Mild tenderness at the 1st and 5th MTP joints which may be slightly swollen. Elsewhere there is no tenderness, swelling, increased warmth or erythema. Tender points:.? Mild tenderness to digital palpation at the occiput, trapezius, second rib, lateral epicondyle, knees, greater trochanter and gluteal area bilaterally. ? Results Reviewed Results Reviewed: Laboratory Tests Laboratory Tests 07/01/23 12:43 Creatinine 0.82 AST 30 ALT 31 Alkaline Phosphatase 85 C-Reactive Protein 0.91 H 07/01/23 12:43 WBC 6.1 Hgb 15.0 ESR 11 [place] [address] XRay Report Signed Patient: Negrito Tanner MR#: [id number] : 1985 Acct:[id number] Age/Sex: 37 / M ADM Date: 04/07/23 Ordering Physician: Sun Delgado Date of Service: 04/07/23 Procedure(s): XR hand RT min 3V Accession Number(s): [id number] cc: Sun Delgado~ EXAMINATION: XR HAND, RIGHT CLINICAL INFORMATION: Swelling at the third metacarpal phalangeal joint COMPARISON: None available. TECHNIQUE: PA, lateral, and oblique views of the right hand. FINDINGS: The bones and soft tissues are normal. No fracture. Alignment is anatomic. Joint spaces are maintained. No erosions or soft tissue calcifications. XR/XR hand RT min 3V IMPRESSION: Normal right hand. 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 Cimzia 01/2023- 04/2023 - no improvement Xeljanz started 07/2023 Code(s): M06.9 - Rheumatoid arthritis, unspecified Qualifiers: Rheumatoid arthritis location: multiple sites Rheumatoid factor presence: with rheumatoid factor Qualified Code(s): M05.79 - Rheumatoid arthritis with rheumatoid factor of multiple sites without organ or systems involvement Plan There may be some improvement in the synovitis in his hands but I told him that clearly the MCP swelling is here to stay. Today he does seem to have many fibromyalgia tender points so could have some element of that disorder as well. He is not having any side effects so I think we can for now continue with the Xeljanz and methotrexate assuming the lab work from today looks okay. The right knee OA and has instability which may make it a candidate for an ACL type repair. If he were on less prednisone the surgical outcome would be more favorable so will see if we could drop the prednisone to 5 mg in the morning and 2.5 in the afternoon. We will check lab work today monitoring the methotrexate and the Xeljanz. A follow-up in 2 months seems reasonable. Orders: Orders Erythrocyte Sedimentation Rate Today M06.9 - Rheumatoid arthritis, unspecified, M17.11 - Unilateral primary osteoarthritis, right knee, Z79.899 - Other predatory animal exterminator (current) drug therapy Complete Blood Count Auto Diff Today M06.9 - Rheumatoid arthritis, unspecified, M17.11 - Unilateral primary osteoarthritis, right knee, Z79.899 - Other custodial (current) drug therapy Alanine Aminotransferase Today M06.9 - Rheumatoid arthritis, unspecified, M17.11 - Unilateral primary osteoarthritis, right knee, Z79.899 - Other predatory animal exterminator (current) drug therapy Aspartate Amino Transferase Today M06.9 - Rheumatoid arthritis, unspecified, M17.11 - Unilateral primary osteoarthritis, right knee, Z79.899 - Other custodial (current) drug therapy C Reactive Protein Today M06.9 - Rheumatoid arthritis, unspecified, M17.11 - Unilateral primary osteoarthritis, right knee, Z79.899 - Other predatory animal exterminator (current) drug therapy Creatinine Today M06.9 - Rheumatoid arthritis, unspecified, M17.11 - Unilateral primary osteoarthritis, right knee, Z79.899 - Other custodial (current) drug therapy Medications: Changed From prednisone 5 mg PO BID 60 tabs 3RF M06.9 - Rheumatoid arthritis, unspecified To prednisone one tab in AM and 1/2 tab in PM 45 tabs 3RF M06.9 - Rheumatoid arthritis, unspecified Coding Level of Care Code Est Pt Level 3 (59969) Diagnoses Osteoarthritis of right knee M17.11 History of reconstruction of anterior cruciate ligament tear Z98.890 FPC current use of immunosuppressive drug Z79.899 Rheumatoid arthritis involving multiple sites with positive rheumatoid factor M05.79 Rheumatoid arthritis location: multiple sites Rheumatoid factor presence: with rheumatoid factor
== END 2023-09-13 15:15 | disposition home or self-care (01) ==
PROVIDERS: PCP Internal Medicine; Visit Provider Internal Medicine Rheumatology
DX: M17.11 Unilateral primary osteoarthritis, right knee (principal); Z98.890 Other specified postprocedural states; Z79.899 Other long term (current) drug therapy; M05.79 Rheumatoid arthritis with rheumatoid factor of multiple sites without organ or systems involvement
CPT/HCPCS: 99213

== ENCOUNTER → 2023-09-13 13:55 | Outpatient (BNVA) | payer OTHER, SELFPAY | PROVIDERS: PCP Internal Medicine; Visit Provider Internal Medicine Rheumatology | DX: M05.79 Rheumatoid arthritis with rheumatoid factor of multiple sites without organ or systems involvement (principal); M17.11 Unilateral primary osteoarthritis, right knee; Z98.890 Other specified postprocedural states; Z79.899 Other long term (current) drug therapy | CPT/HCPCS: 99212 ==

== ENCOUNTER 2023-09-17 12:55 | Outpatient (REF) | payer OTHER, SELFPAY ==
[2023-09-17 13:04] LABS: MANUAL DIFF FLAG NO
[2023-09-17 13:15] LABS: Basophils Absolute Auto 0.1 X10*3/uL (0.0-0.2); Basophils Percent Auto 0.4 % (0-2); Eosinophils Absolute Auto 0.1 X10*3/uL (0.0-0.4); Eosinophils Percent Auto 0.4 % (0-4); Hematocrit 44.3 % (42.0-52.0); Hemoglobin 15.2 g/dl (14.0-18.0); Imm Gran Abs Auto 0.03 X10*3/uL (0.00-0.03); Imm Gran Pct Auto 0.3 % (0.0-0.4); Lymphocytes Absolute Auto 3.7 X10*3/uL (1.2-4.9); Lymphocytes Percent Auto 31.7 % (20-40); Mean Corpuscular HGB Conc 34.3 g/dl (31.0-36.0); Mean Corpuscular Hemoglobin 32.8 pg (27.0-33.0); Mean Corpuscular Volume 95.7 fL (80.0-98.0); Mean Platelet Volume 9.4 fL (9.4-12.4); Monocytes Absolute Auto 0.7 X10*3/uL (0.1-1.2); Monocytes Percent Auto 6.2 % (2-11); Platelet Count 302 X10*3/uL (160-400); Red Blood Count 4.63 X10*6/uL (4.60-5.80); Red Cell Distribution Width 12.7 % (11.0-16.0); White Blood Count 11.6 X10*3/uL (4.8-10.8)
[2023-09-17 13:48] LABS: Alanine Aminotransferase 19 U/L (0-40); Aspartate Amino Transferase 18 U/L (5-37); C Reactive Protein 0.55 mg/dL (< or = 0.50); Estimated Glomerular Filt Rate > 60
[2023-09-17 13:54] LABS: Erythrocyte Sedimentation Rate 7 MM/HR (0-15)
== END 2023-09-17 12:56 | disposition home or self-care (01) ==
LOC: HO.LAB 12:55
PROVIDERS: PCP Internal Medicine; Visit Provider Internal Medicine Rheumatology
DX: M06.9 Rheumatoid arthritis, unspecified (principal); M17.11 Unilateral primary osteoarthritis, right knee; Z79.899 Other long term (current) drug therapy
CPT/HCPCS: 36415; 82565; 84450; 84460; 85025; 85652; 86140

== ENCOUNTER 2024-01-13 10:27 | Outpatient (REF) | payer OTHER, SELFPAY ==
[2024-01-13 10:39] LABS: MANUAL DIFF FLAG NO
[2024-01-13 11:28] LABS: Basophils Absolute Auto 0.1 X10*3/uL (0.0-0.2); Basophils Percent Auto 0.4 % (0-2); Eosinophils Absolute Auto 0.1 X10*3/uL (0.0-0.4); Eosinophils Percent Auto 0.4 % (0-4); Hematocrit 49.6 % (42.0-52.0); Hemoglobin 17.1 g/dl (14.0-18.0); Imm Gran Abs Auto 0.09 X10*3/uL (0.00-0.03); Imm Gran Pct Auto 0.8 % (0.0-0.4); Lymphocytes Absolute Auto 4.2 X10*3/uL (1.2-4.9); Lymphocytes Percent Auto 35.5 % (20-40); Mean Corpuscular HGB Conc 34.5 g/dl (31.0-36.0); Mean Corpuscular Hemoglobin 33.4 pg (27.0-33.0); Mean Corpuscular Volume 96.9 fL (80.0-98.0); Mean Platelet Volume 9.4 fL (9.4-12.4); Monocytes Absolute Auto 0.8 X10*3/uL (0.1-1.2); Monocytes Percent Auto 6.8 % (2-11); Neutrophils Absolute Auto 6.6 x10*3/uL (2.0-8.3); Neutrophils Percent Auto 56.1 % (45-73); Platelet Count 360 X10*3/uL (160-400); Red Blood Count 5.12 X10*6/uL (4.60-5.80); Red Cell Distribution Width 13.2 % (11.0-16.0); White Blood Count 11.8 X10*3/uL (4.8-10.8)
[2024-01-13 12:08] LABS: Alanine Aminotransferase 21 U/L (0-40); Aspartate Amino Transferase 20 U/L (5-37); C Reactive Protein < 0.10 mg/dL (< or = 0.50); Estimated Glomerular Filt Rate > 60
[2024-01-13 13:21] LABS: Erythrocyte Sedimentation Rate 2 MM/HR (0-15)
== END 2024-01-13 10:28 | disposition home or self-care (01) ==
LOC: HO.LAB 10:27
PROVIDERS: PCP Internal Medicine; Referring Provider Nurse Practitioner Family; Visit Provider Internal Medicine Rheumatology
DX: M05.79 Rheumatoid arthritis with rheumatoid factor of multiple sites without organ or systems involvement (principal); Z79.899 Other long term (current) drug therapy
CPT/HCPCS: 36415; 82565; 84450; 84460; 85025; 85652; 86140

== ENCOUNTER 2024-01-19 15:02 | Outpatient (AMB) | payer OTHER, SELFPAY ==
--- NOTE | 2024-01-19 15:17 | A.OFFVIS_ITS ---
Intake Vital Signs 01/19/24 15:18 Height 5 ft 9 in Weight 202 lb 9.677 oz BMI 29.9 BP 100/78 Blood Pressure Location Rt brachial Position Sitting Pulse 83 Pulse Source Pulse Oximeter Temp 97 F Temp Source Skin Pulse Oximetry (%) 97 Oxygen Delivery Method Room Air Intake Visit Reasons: RA/CONFIRMED Intake Note: Patient last seen 09/13/[address] Castrejon, presents today for follow up and test results. Copyright Expert Required: Yes Copyright Expert Language: Director Immunology Name: [id number] [place]t Information Interpreted: clinical only Accompanied by: Self / Same As Patient Allergies Penicillins [PENICILLINS] Allergy (Unknown, Verified 01/19/24 15:21) RASH morphine Adverse Reaction (Verified 01/19/24 15:21) Itching HPI HPI Comments History of Present Illness Details Mr. Choi 38 yoM returns for follow-up of RA. For RA he takes Xeljanz 5mg bid, prednisone 5 mg b.i.d., folic acid 1 mg daily, methotrexate 25 mg once a week. He also uses meloxicam 15 mg daily, duloxetine 30 mg daily. He continues with swollne MCPs and decreased manager forms strength for more than 6 months per patient He thinks the pain is not better on Xeljanz. The right knee is bothersome with weight-bearing activities and he uses a cane for support. Upcoming MRI for right knee January 25. 09/13/2023 Dr. Magaña: The patient returns today for evaluation of his rheumatoid arthritis. We used the [employer] service to facilitate the visit. At his last visit I thought his disease needed more antirheumatic drugs so we tried to get Rinvoq. That was not approved but they did approve Xeljanz 5 mg b.i.d.. He seems to be tolerating that okay for the past month. He remains on prednisone 5 mg b.i.d., folic acid 1 mg daily, meloxicam 15 mg daily, duloxetine 30 mg daily and methotrexate 25 mg once a week. He does not think he has had any side effects with the medications at this point. He did see Orthopedics. Instability in the right knee was found and MRI was ordered but he has yet to have it scheduled. Overall he notes still the MCPs seem swollen and he had decreased manager forms strength. He thinks the pain is a bit better than before starting the Xeljanz. The right knee is bothersome when he tries to do more weight-bearing activities. 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 Rheumatoid arthritis Arthritis Asthma Surgical History History of surgery on lower extremity Hx of exploratory laparotomy S/P hardware removal S/P ORIF (open reduction internal fixation) fracture Family History Mother Alzheimer disease Hypertension Father Hypertension Social History Household Members: None Housing: Apartment Are you a primary acute care nurse practitioner to a significant other at home: No Do you presently have visiting nurse or other home services: No Alcohol intake: never Patient Tobacco Use Status: Never used Tobacco e-Cigarette/Vaping Use: Never Used Second Hand Smoke Exposure: No service: No Current occupational status: employed 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 Regular rhythm, S1-S2 heard, no murmurs, rubs or gallops. LUNG:? Clear to auscultation JOINT EXAM: Cervical Spine:? Full range of motion with mild pain at the extremes. No tenderness. Thoracic Spine:?No tenderness on palpation. Lumbar Spine: Alignment normal.? Full range of motion without pain, tenderness reported to palpation of the lumbar spine. Hands: LEFT: Normal range of motion.? Mild swelling and tenderness at the 2nd and 5th MCP joints.There is some thickening at the thumb IP without tenderness. ? RIGHT: Normal range of motion.? Mild swelling and tenderness at the 1st 3 and 5th MCP joints. Swelling and tenderness are most prominent at the 2nd MCP. There is mild tenderness and slight swelling at the thumb IP and the 5th PIP joints Wrists:? right: Slight pain with flexion extension at 60 degrees. Mild tenderness but no swelling. Left: Normal pain free range of motion.? Slight dorsal tenderness but no swelling, increased warmth or erythema.? ? ? Elbows: Right:: Slight pain with extremes of flexion extension with some mild tenderness but no swelling. Left: Normal pain-free range of motion without tenderness, swelling, increased warmth or erythema. Shoulders: LEFT:? Mild pain with Abduction at 120 degrees with extremes of internal or external rotation.. There is mild anterior tenderness without adenopathy, swelling or weakness..? RIGHT: Full range of motion this with slight discomfort at the extremes of motion. Mild anterior tenderness without swelling, adenopathy or weakness.? Hip bursa:? Mild trochanteric tenderness. Knees: LEFT:?? Mild discomfort with extremes of normal range of motion. There is mild patellofemoral crepitus and medial tenderness. No effusion, soft tissue swelling, increased warmth or erythema.? RIGHT:? Normal range of motion; Mild pain with more than 45 degrees of flexion or extension. There is AP motion instability present.? Tenderness to palpation at the medial and lateral joint lines.? No increased warmth or erythema.? No effusion or crepitation. Ankles: LEFT:? Full range of motion with mild swelling. Mild tenderness and pain particularly on the medial aspect. No redness or warmth. ? RIGHT: Full range of motion without tenderness, swelling, increased warmth or erythema. Feet:? Full range of motion with Mild tenderness at the 1st and 5th MTP joints which may be slightly swollen. Elsewhere there is no tenderness, swelling, increased warmth or erythema. Tender points:.? Mild tenderness to digital palpation at the occiput, trapezius, second rib, lateral epicondyle, knees, greater trochanter and gluteal area bilaterally. ? Results Reviewed Results Reviewed: Laboratory Tests 09/17/23 01/13/24 13:00 10:38 WBC 11.6 H 11.8 H RBC 4.63 5.12 Hgb 15.2 17.1 Hct 44.3 49.6 ESR 7 2 Creatinine 1.10 0.98 AST 20 ALT 21 C-Reactive Protein < 0.10 Assessment & Plan Assessment & Plan (1) Osteoarthritis of right knee: Code(s): M17.11 - Unilateral primary osteoarthritis, right knee Qualifiers: Osteoarthritis type: primary Qualified Code(s): M17.11 - Unilateral primary osteoarthritis, right knee (2) History of reconstruction of anterior cruciate ligament tear: Code(s): Z98.890 - Other specified postprocedural states (3) senior living current use of immunosuppressive drug: Code(s): Z79.899 - Other surgical physician assistant (current) drug therapy (4) Rheumatoid arthritis: Comment: Methotrexate: 12/2018- present Humira: October 2019-January 2021-ineffective Rinvoq: January 2021-patient went to [place] in did not start the medication Enbrel: December 2021-improved symptoms patient self-stopped due to fatigue, sweating, abdominal pain, hematuria likely not related to Enbrel. Cimzia 01/2023- 04/2023 - no improvement Xeljanz started 07/2023 Code(s): M06.9 - Rheumatoid arthritis, unspecified Qualifiers: Rheumatoid arthritis location: multiple sites Rheumatoid factor presence: with rheumatoid factor Qualified Code(s): M05.79 - Rheumatoid arthritis with rheumatoid factor of multiple sites without organ or systems involvement Plan #SeroPos RA (CCP/RF): Continued synovitis to MCPs. He wants to get off the Prednisone. I will add Leflunomide 10mg and reassess if that helps with the hands. We will also do Prednisone 2.5mg BID. Continue Xeljanz 5 mg bid, MTX 25mg QW, Folic Acid 1 mg QD and meloxicam 15mg QD. #Personal Banker Use: His labs are in normal range and he denies side effects so will continue with the Xeljanz and methotrexate. We will continue to monitor CBC and CMP for the methotrexate and the Xeljanz. Obtain labs 1 week before next visit and 1 month on Leflunomide. #Right knee OA: Upcoming MRI January 25. I spent 40 minutes reviewing history, evaluating patient and documenting A follow-up in 2 months Orders: Orders Erythrocyte Sedimentation Rate 01/19/24 Z79.899 - Other surgical physician assistant (current) drug therapy, M06.9 - Rheumatoid arthritis, unspecified Comprehensive Met. Panel 01/19/24 Z79.899 - Other surgical physician assistant (current) drug therapy, M06.9 - Rheumatoid arthritis, unspecified C Reactive Protein 01/19/24 Z79.899 - Other surgical physician assistant (current) drug therapy, M06.9 - Rheumatoid arthritis, unspecified Complete Blood Count Auto Diff 01/19/24 Z79.899 - Other surgical physician assistant (current) drug therapy, M06.9 - Rheumatoid arthritis, unspecified Medications: New leflunomide 10 mg PO DAILY 90 tabs 1RF M06.9 - Rheumatoid arthritis, unspecified Coding Level of Care Code Est Pt Level 4 (06614) Diagnoses Primary osteoarthritis of right knee M17.11 Osteoarthritis type: primary History of reconstruction of anterior cruciate ligament tear Z98.890 senior living current use of immunosuppressive drug Z79.899 Rheumatoid arthritis involving multiple sites with positive rheumatoid factor M05.79 Rheumatoid arthritis location: multiple sites Rheumatoid factor presence: with rheumatoid factor
[2024-01-19 15:18] VITALS: BP 100/78; PULSE 83; TEMP 36.1; O2SAT 97; BMI 29.9
== END 2024-01-19 16:06 | disposition home or self-care (01) ==
PROVIDERS: PCP Internal Medicine; Visit Provider Nurse Practitioner Family
DX: M17.11 Unilateral primary osteoarthritis, right knee (principal); Z98.890 Other specified postprocedural states; Z79.899 Other long term (current) drug therapy; M05.79 Rheumatoid arthritis with rheumatoid factor of multiple sites without organ or systems involvement
CPT/HCPCS: 99214

== ENCOUNTER → 2024-01-19 15:02 | Outpatient (BNVA) | payer OTHER, SELFPAY | PROVIDERS: PCP Internal Medicine; Visit Provider Nurse Practitioner Family | DX: M05.79 Rheumatoid arthritis with rheumatoid factor of multiple sites without organ or systems involvement (principal); M17.11 Unilateral primary osteoarthritis, right knee; Z98.890 Other specified postprocedural states; Z79.899 Other long term (current) drug therapy | CPT/HCPCS: 99212 ==

== ENCOUNTER 2024-01-25 10:44 | Outpatient (REF) | payer OTHER, SELFPAY ==
--- NOTE | ~2024-01-25 | MR_ITS ---
EXAMINATION: MR KNEE WITHOUT CONTRAST, RIGHT CLINICAL INFORMATION: Status post anterior cruciate ligament reconstruction, now complains of right knee pain and instability COMPARISON: MRI right knee on 04/06/2022 TECHNIQUE: MRI of the knee without contrast was performed using routine sequences on a high-field scanner. FINDINGS: MENISCUS: The Right medial meniscus is intact. The lateral meniscus is intact. CARTILAGE: Articular cartilage of the femoral condyles and tibial plateaus are intact. LIGAMENTS: The reconstructed anterior cruciate ligament appears to be grossly intact, difficult to visualize due to irregular magnetic field and signal loss associated with magnetic subsequent ability to artifacts. Once again, no abnormal T2 hyperintensity is seen in the reconstructed ligament. The posterior cruciate ligament remains intact. Tibial and fibular collateral ligaments, iliotibial band, biceps femoris tendon attachment are intact. PATELLA: The Right patellar tendon and patellar articular cartilage are intact. There is trace left knee effusion. BONES: Extensive signal voids, signal irregularity and magnetic subsequent ability artifacts are seen along the screw track and osseous tunnels in distal right femur and proximal right tibia. MR/MR knee RT wo con IMPRESSION: 1. Unchanged status post right anterior cruciate ligament reconstruction, metallic implants in distal right femur and proximal right tibia causing signal irregularity, loss, magnetic susceptibility artifacts. Unchanged Grossly intact reconstructed anterior cruciate ligament. 2. Trace left knee effusion. 3. Unchanged, No evidence of meniscal tear.
== END 2024-01-25 10:45 | disposition home or self-care (01) ==
LOC: HO.MRI 10:44
PROVIDERS: PCP Internal Medicine; Visit Provider Orthopaedic Surgery
DX: M25.361 Other instability, right knee (principal); Z47.89 Encounter for other orthopedic aftercare; Z98.890 Other specified postprocedural states
CPT/HCPCS: 73721

== ENCOUNTER 2024-02-04 10:59 | Outpatient (AMB) | payer OTHER, SELFPAY ==
--- NOTE | 2024-02-04 11:05 | A.OFFVIS_ITS ---
Intake Vital Signs 02/04/24 11:09 Height 5 ft 9 in Weight 202 lb BMI 29.8 Intake Visit Reasons: OV - Right Knee Pain Intake Note: Wiliam 38 year old male who presents today for an MRI review of right knee. Patient reports his pain has increased since his last visit. He uses a cane to ambulate. Allergies Penicillins [PENICILLINS] Allergy (Unknown, Verified 02/04/24 11:08) RASH morphine Adverse Reaction (Verified 02/04/24 11:08) Itching HPI OV - Right Knee Pain HPI Details 38-year-old male who returns to the [facility] today for an MRI review of right knee. He states his pain increased since the last visit. His pain is aggravated with stairs and prolonged walking. He had a cortisone injection in the past which did not provide him much relief. He uses a cane to ambulate. He has no other concerns today. 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 Rheumatoid arthritis Arthritis Asthma Surgical History History of surgery on lower extremity Hx of exploratory laparotomy S/P hardware removal S/P ORIF (open reduction internal fixation) fracture Family History Mother Alzheimer disease Hypertension Father Hypertension Social History Household Members: None Housing: Apartment Are you a primary acute care nurse to a significant other at home: No Do you presently have visiting nurse or other home services: No Alcohol intake: never Patient Tobacco Use Status: Never used Tobacco e-Cigarette/Vaping Use: Never Used Second Hand Smoke Exposure: No service: No Current occupational status: employed 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 Tenderness along the medial and lateral joint line. Full ROM with crepitus. Negative Josee?s. No ligamentous laxity. NVI. Results Reviewed Results Reviewed: MR knee RT wo con IMPRESSION: 1. Unchanged status post right anterior cruciate ligament reconstruction, metallic implants in distal right femur and proximal right tibia causing signal irregularity, loss, magnetic susceptibility artifacts. Unchanged Grossly intact reconstructed anterior cruciate ligament. 2. Trace left knee effusion. 3. Unchanged, No evidence of meniscal tear. Assessment & Plan Assessment & Plan (1) Osteoarthritis of right knee: Code(s): M17.11 - Unilateral primary osteoarthritis, right knee Qualifiers: Osteoarthritis type: primary Qualified Code(s): M17.11 - Unilateral primary osteoarthritis, right knee Plan A referral was made for pain management to try geniculate injection as he has tried and failed cortisone injection. There is no evidence of re-rupture of acl despite his feelings of instability. I did explain the feeling he has of an unstable knee may be due to a deconditioned knee. I did encourage quad, hip/glute strength to help with this. He was also fit for a Genumed knee brace in the office today. He will contact as needed going forward. Orders: Referrals Pain Management Referral M17.11 - Unilateral primary osteoarthritis, right knee Patient Instructions: Scribed for Jose Peña PA-C, by Oziel Barnett medical equipment technician, on 02/04/2024 at 11:30 AM [place]. Jose Whitlock PA-C, have personally reviewed and agree with the information entered by the scribe. Coding Level of Care Code Est Pt Level 3 (07816) Diagnoses Primary osteoarthritis of right knee M17.11 Osteoarthritis type: primary
[2024-02-04 11:09] VITALS: BMI 29.8
== END 2024-02-04 11:53 | disposition home or self-care (01) ==
PROVIDERS: PCP Internal Medicine; Visit Provider Physician Assistant
DX: M17.11 Unilateral primary osteoarthritis, right knee (principal)
CPT/HCPCS: 99213

== ENCOUNTER → 2024-02-04 10:59 | Outpatient (BNVA) | payer OTHER, SELFPAY | PROVIDERS: PCP Internal Medicine; Visit Provider Physician Assistant | DX: M17.11 Unilateral primary osteoarthritis, right knee (principal) | CPT/HCPCS: 99212 ==

== ENCOUNTER 2024-03-09 10:54 | Outpatient (AMB) | payer OTHER, SELFPAY ==
--- NOTE | 2024-03-09 11:08 | MHC.OFFVIS ---
Vital Signs 03/09/24 11:16 Height 5 ft 9 in Weight 215 lb BMI 31.7 BP 135/91 H Blood Pressure Location Rt brachial Position Sitting Pulse 69 Pulse Source Pulse Oximeter Pulse Oximetry (%) 98 Oxygen Delivery Method Room Air Intake Visit Reasons: eval for geniculate injections-PF oa right knee Intake Note: Pain today 9 School Office Assistant Required: Yes School Office Assistant Language: Instructional Media Services Technician Name: Meera Accompanied by: Self / Same As Patient Allergies Penicillins [PENICILLINS] Allergy (Unknown, Verified 03/09/24 11:15) RASH morphine Adverse Reaction (Verified 03/09/24 11:15) Itching HPI Comments Details: Negrito is a very pleasant 38 year old male who presents to the office today for evaluation and management of his chronic right knee pain. Referred here from Ortho, he was initially evaluated by them 08/29/2020 for 1 month history of right knee injury. He states he was coming down some steps and twisted a awkwardly and fell onto his right knee. He had pain and swelling in his knee and was unable to ambulate comfortably. Since then he has had [address] his knee collapses and he nearly falls down. He underwent s/p ACL reconstruction 11/07/20 but reports his pain has persisted since. Pain in right knee, worse with walking and standing. Feels like his knee is unstable . Taking NSAIDs without improvement. Tylenol does not help. Completed PT less than one year ago without pain relief. Steroid injection in the past provided no relief, he declined a repeat injection. Patient had MRI last month, results as per below. Fitted for a knee brace that he has been wearing for the last several weeks. Brace helps with the stability but does not help with pain. Pain today rated as 9/10. Average pain 10/10. In terms of muscle damage condition is described throbbing, aching, stabbing, sharp Pain is negatively impacting patients mobility, activities of daily living, normal functioning, work, enjoyment of life. 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 Rheumatoid arthritis Arthritis Asthma Surgical History History of surgery on lower extremity Hx of exploratory laparotomy S/P hardware removal S/P ORIF (open reduction internal fixation) fracture Family History Mother Alzheimer disease Hypertension Father Hypertension Social History Household Members: None Housing: Apartment Are you a primary rn progressive care unit to a significant other at home: No Do you presently have visiting nurse or other home services: No Alcohol intake: never Patient Tobacco Use Status: Never used Tobacco e-Cigarette/Vaping Use: Never Used Second Hand Smoke Exposure: No service: No Current occupational status: employed 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 Answers questions appropriately. Fully engaged in examination. Skin: warm, dry, intact HEENT: Normocephalic. Hearing intact. Cardiac: External chest normal in appearance. Respiratory: No cough, audible wheezing or stridor. Abdomen: without gross distension. MS: No obvious swelling or deformities. Able to transition from sit to stand unassisted. Neurological: Oriented to person, place, time and situation. Thought process intact. Ambulates with use of a cane. Psychiatric: Appropriate mood and affect. Good judgment and insight. Extrem Left lower extremity: knee Details: normal to inspection and tenderness Location: of the medial joint line and of the lateral joint line Results Reviewed Results Reviewed: 01/25/24 MR/MR knee RT wo con FINDINGS: MENISCUS: The Right medial meniscus is intact. The lateral meniscus is intact. CARTILAGE: Articular cartilage of the femoral condyles and tibial plateaus are intact. LIGAMENTS: The reconstructed anterior cruciate ligament appears to be grossly intact, difficult to visualize due to irregular magnetic field and signal loss associated with magnetic subsequent ability to artifacts. Once again, no abnormal T2 hyperintensity is seen in the reconstructed ligament. The posterior cruciate ligament remains intact. Tibial and fibular collateral ligaments, iliotibial band, biceps femoris tendon attachment are intact. PATELLA: The Right patellar tendon and patellar articular cartilage are intact. There is trace left knee effusion. BONES: Extensive signal voids, signal irregularity and magnetic subsequent ability artifacts are seen along the screw track and osseous tunnels in distal right femur and proximal right tibia. IMPRESSION: 1. Unchanged status post right anterior cruciate ligament reconstruction, metallic implants in distal right femur and proximal right tibia causing signal irregularity, loss, magnetic susceptibility artifacts. Unchanged Grossly intact reconstructed anterior cruciate ligament. 2. Trace left knee effusion. 3. Unchanged, No evidence of meniscal tear. Assessment & Plan Assessment & Plan (1) Chronic pain of right knee: Code(s): M25.561 - Pain in right knee; G89.29 - Other chronic pain Category: Medical (2) History of reconstruction of anterior cruciate ligament tear: Code(s): Z98.890 - Other specified postprocedural states Category: Surgical (3) Osteoarthritis of right knee: Code(s): M17.11 - Unilateral primary osteoarthritis, right knee Category: Medical Qualifiers: Osteoarthritis type: primary Qualified Code(s): M17.11 - Unilateral primary osteoarthritis, right knee Plan Negrito is a very pleasant 38 year old male who presented to the office today for evaluation and management of his chronic right knee pain. He has exhausted conservative therapy including NSAIDS, Tylenol, PT, steroid injections, surgical intervention and bracing. Lengthy discussion with patient regarding diagnosis and treatment options including diagnostic interventional testing, steroid injections, peripheral nerve stimulation with Sprint, and more permanent neuromodulation. Will schedule for US guided right saphenous nerve block with local anesthetic. Plan for right saphenous nerve Sprint PNS if patient finds good relief with diagnostic block. Informational pamphlets provided. All questions and concerns have been answered and patient agrees with the plan. Follow up after injections and sooner if needed. Coding Level of Care Code New Pt Level 4 (04792) Diagnoses Chronic pain of right knee M25.561; G89.29 History of reconstruction of anterior cruciate ligament tear Z98.890 Primary osteoarthritis of right knee M17.11 Osteoarthritis type: primary
[2024-03-09 11:16] VITALS: BP 135/91; PULSE 69; O2SAT 98; BMI 31.7
== END 2024-03-09 11:31 | disposition home or self-care (01) ==
PROVIDERS: PCP Internal Medicine; Referring Provider Physician Assistant; Visit Provider Registered Nurse Emergency
DX: M25.561 Pain in right knee (principal); G89.29 Other chronic pain; Z98.890 Other specified postprocedural states; M17.11 Unilateral primary osteoarthritis, right knee
CPT/HCPCS: 99204

== ENCOUNTER → 2024-03-09 10:54 | Outpatient (BNVA) | payer OTHER, SELFPAY | PROVIDERS: PCP Internal Medicine; Referring Provider Physician Assistant; Visit Provider Registered Nurse Emergency | DX: M25.561 Pain in right knee (principal); M17.11 Unilateral primary osteoarthritis, right knee; G89.29 Other chronic pain; Z98.890 Other specified postprocedural states | CPT/HCPCS: 99202 ==

== ENCOUNTER 2024-04-14 11:10 | Outpatient (AMB) | payer OTHER, SELFPAY ==
[2024-04-14 11:34] VITALS: BP 122/64; PULSE 75; O2SAT 95; BMI 30.3
--- NOTE | 2024-04-14 11:34 | A.OFFVIS_ITS ---
Vital Signs 04/14/24 11:34 Height 5 ft 9 in Weight 205 lb 0.478 oz BMI 30.3 BP 122/64 Blood Pressure Location Rt brachial Position Sitting Pulse 75 Pulse Source Pulse Oximeter Pulse Oximetry (%) 95 Oxygen Delivery Method Room Air Intake Visit Reasons: RA/Added LEF due to synovitis./cm Intake Note: Loss of vision, pain and swelling ankle and hands. Senior Construction Project Manager Required: Yes Senior Construction Project Manager Name: Shabnam Mittal - form signed Accompanied by: Spouse Allergies Penicillins [PENICILLINS] Allergy (Unknown, Verified 04/14/24 11:45) RASH morphine Adverse Reaction (Verified 04/14/24 11:45) Itching leflunomide Adverse Reaction (Mild, Uncoded 04/14/24 11:51) blurry vision Medication List - Last Reconciled 04/14/24 by Adrián James MD acetaminophen (Tylenol Extra Strength) 1,000 mg PO BEDTIME PRN albuterol sulfate 90 mcg/actuation 2 puffs PO Q6H PRN 30 days ascorbic acid (vitamin C) 1 g PO Q6H cholecalciferol (vitamin D3) 50 mcg PO DAILY cyanocobalamin (vitamin B-12) 1,000 mcg PO DAILY duloxetine 20 mg PO DAILY duloxetine 30 mg PO DAILY fluticasone propionate 50 mcg/actuation (Flonase Allergy Relief) 1 spray intranasal DAILY folic acid 1 mg PO DAILY meloxicam 15 mg PO DAILY mv,Ca,jxy-hton-UX-lycopene 8 mg iron- 200 mcg-600 mcg (Centrum Men) tabs PO pantoprazole 40 mg PO DAILY prednisone one tab in AM and 1/2 tab in PM tofacitinib (Xeljanz) 5 mg PO BID HPI Comments Details: This is a 38-year-old male with seropositive erosive RA presents for follow-up. Last visit leflunomide 10 mg daily was added by Alka Bryant , patient took it for 2 weeks then discontinued it due to blurry vision, rashes on his face, back of his scalp. He remains on his Xeljanz 5 mg Twice daily, prednisone 7.5 mg in the morning, 5 mg at night, methotrexate 25 mg weekly and folic acid 1 mg daily. He notes increased joint pain stiffness and swelling especially of his hands, feet, ankles. 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 Rheumatoid arthritis Arthritis Asthma Surgical History History of surgery on lower extremity Hx of exploratory laparotomy S/P hardware removal S/P ORIF (open reduction internal fixation) fracture Family History Mother Alzheimer disease Hypertension Father Hypertension Social History Household Members: None Housing: Apartment Are you a primary manager career to a significant other at home: No Do you presently have visiting nurse or other home services: No Alcohol intake: never Patient Tobacco Use Status: Never used Tobacco e-Cigarette/Vaping Use: Never Used Second Hand Smoke Exposure: No service: No Current occupational status: employed 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 Cognitive needs: Yes (cane) Hearing needs: No Vision needs: No Review of Systems Musc Reports deformity, Reports arthralgias, Reports joint swelling and Reports stiffness Physical Exam Const General: cooperative, healthy appearing and comfortable Nutritional Appearance: overweight Orientation/consciousness: patient oriented x3 Limitations: no limitations HEENT Head: Yes normocephalic and Yes atraumatic Mouth: moist mucous membranes Resp Effort & Inspection: normal respiratory effort and able to speak in complete sentences Auscultation: clear to auscultation bilaterally Skin General skin exam: no rashes or lesions noted Neuro General: patient oriented x3 Extrem Other: Significant RA deformities both hands with multiple swollen and tender joints Bilateral wrist tenderness and pain with any range of motion Bilateral elbow pain with flexion and extension Limited bilateral shoulder abduction Bilateral ankle swelling much more prominent on the left associated with warmth and tenderness Multiple MTP tenderness bilaterally Assessment & Plan Assessment & Plan (1) Rheumatoid arthritis: Comment: ++[id number]+CCP Methotrexate: 12/2018- present Humira: October 2019-January 2021-ineffective Rinvoq: January 2021-patient went to [place] in did not start the medication Enbrel: December 2021-improved symptoms patient self-stopped due to fatigue, sweating, abdominal pain, hematuria likely not related to Enbrel. Cimzia 01/2023- 04/2023 - no improvement Xeljanz started 07/2023 Left 12/2023 DC after 2 weeks due to rashes Code(s): M06.9 - Rheumatoid arthritis, unspecified Category: Medical Qualifiers: Rheumatoid arthritis location: multiple sites Rheumatoid factor presence: with rheumatoid factor Qualified Code(s): M05.79 - Rheumatoid arthritis with rheumatoid factor of multiple sites without organ or systems involvement Plan: This is a 38-year-old male with seropositive erosive RA who returns for follow- up. This is his 1st visit with me. He used to follow-up with Alka Bryant. He could not tolerate leflunomide due to skin rashes and blurry vision. He continues on methotrexate p.o. 25 mg weekly, Xeljanz 5 mg Twice daily, folic acid 1 mg daily and prednisone 7.5 mg in the morning and 5 mg at night Continues to have active synovitis. Switch methotrexate to subcu form. Remain on 25 mg weekly. Advised patient to filler picker the medication from the pharmacy and return for nurse teaching visit. 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: Code(s): Z79.899 - Other intermediate designer (current) drug therapy Category: Medical Plan: Monitor safety labs (3) [facility] current use of immunosuppressive drug: Code(s): Z79.899 - Other custodial (current) drug therapy Category: Medical Plan I spent 30 minutes reviewing patient's chart, evaluating patient, ordering diagnostic workup, counseling patient and documenting in the chart Medications: New methotrexate sodium (PF) 25 mg subcut QWEEK 8 mL 2RF insulin syringe-needle U-100 (BD Insulin Syringe) Use once weekly with methotrexate 10 ea 0RF Coding Level of Care Code Est Pt Level 4 (41021) Diagnoses Rheumatoid arthritis involving multiple sites with positive rheumatoid factor M05.79 Rheumatoid arthritis location: multiple sites Rheumatoid factor presence: with rheumatoid factor 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
== END 2024-04-14 13:13 | disposition home or self-care (01) ==
PROVIDERS: PCP Internal Medicine; Visit Provider Student in an Organized Health Care Education/Training Program
DX: M05.79 Rheumatoid arthritis with rheumatoid factor of multiple sites without organ or systems involvement (principal); Z79.899 Other long term (current) drug therapy
CPT/HCPCS: 99214

== ENCOUNTER → 2024-04-14 11:10 | Outpatient (BNVA) | payer OTHER, SELFPAY | PROVIDERS: PCP Internal Medicine; Visit Provider Student in an Organized Health Care Education/Training Program | DX: M05.79 Rheumatoid arthritis with rheumatoid factor of multiple sites without organ or systems involvement (principal); D68.62 Lupus anticoagulant syndrome; Z79.631 Long term (current) use of antimetabolite agent | CPT/HCPCS: 99212 ==

== ENCOUNTER 2024-05-04 07:42 | Outpatient (AMB) | payer OTHER, SELFPAY ==
[2024-05-04 07:52] VITALS: BP 112/70; PULSE 69; O2SAT 98; BMI 30.6
--- NOTE | 2024-05-04 07:52 | MHC.PC.OV ---
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: No Accompanied by: Self / Same As Patient Allergies Penicillins [PENICILLINS] Allergy (Unknown, Verified 05/04/24 08:12) RASH morphine Adverse Reaction (Verified 05/04/24 08:12) Itching leflunomide Adverse Reaction (Mild, Uncoded 05/04/24 08:12) blurry vision Medication List - Last Reconciled 05/04/24 by Hayde Baldwin MD acetaminophen (Tylenol Extra Strength) 1,000 mg PO BEDTIME PRN albuterol sulfate 90 mcg/actuation 2 puffs PO Q6H PRN 30 days ascorbic acid (vitamin C) 1 g PO Q6H cholecalciferol (vitamin D3) 50 mcg PO DAILY cyanocobalamin (vitamin B-12) 1,000 mcg PO DAILY duloxetine 30 mg PO DAILY duloxetine 30 mg PO DAILY fluticasone propionate 50 mcg/actuation (Flonase Allergy Relief) 1 spray intranasal DAILY folic acid 1 mg PO DAILY insulin syringe-needle U-100 (BD Insulin Syringe) Use once weekly with methotrexate leflunomide 10 mg PO DAILY meloxicam 15 mg PO DAILY methotrexate sodium (PF) 25 mg subcut QWEEK mv,Ca,pwr-deon-QS-lycopene 8 mg iron- 200 mcg-600 mcg (Centrum Men) tabs PO pantoprazole 40 mg PO DAILY prednisone one tab in AM and 1/2 tab in PM tofacitinib (Xeljanz) 5 mg PO BID Tobacco use date assessed: 05/04/24 Dental Screening Dental Screen Date: 05/04/24 Did you have a dental visit in the last 12 months?: Yes Did you have a dental problem in the last 6 months where you did not have access to dental care?: No Was dental information given to patient?: Patient has dentist HPI HPI Comments History of Present Illness Details This is a 38-year-old male with rheumatoid arthritis, Dl's disease, GERD and mild major depression that comes today for follow-up on his conditions. Still has diffuse joint pain and had to discontinue leflunomide due to blurry vision and rash. Currently on methotrexate injection once a week and Xeljanz. Follow by Rheumatology. Has Dl's disease and TSH will be order to be done today. GERD has been stable with PPIs. Has mild major depression on duloxetine which was recently increased but has not picked it up from the pharmacy. Depression is follow by nurse Psychiatry Arline Hendrix. 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 Rheumatoid arthritis Arthritis Asthma Surgical History History of surgery on lower extremity Hx of exploratory laparotomy S/P hardware removal S/P ORIF (open reduction internal fixation) fracture Family History Mother Alzheimer disease Hypertension Father Hypertension Social History Household Members: None Housing: Apartment Are you a primary respiratory care faculty to a significant other at home: No Do you presently have visiting nurse or other home services: No Alcohol intake: never Patient Tobacco Use Status: Never used Tobacco e-Cigarette/Vaping Use: Never Used Second Hand Smoke Exposure: No service: No Current occupational status: employed 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 1. Little interest or pleasure in doing things: several days 2. Feeling down, depressed, or hopeless: several days 3. Trouble falling or staying asleep, or sleeping too much: several days 4. Feeling tired or having little energy: several days 5. Poor appetite or overeating: not at all 6. Feeling bad about yourself - or that you are a failure or have let yourself or your family down: not at all 7. Trouble concentrating on things, such as reading the newspaper or watching television: not at all 8. Moving or speaking so slowly that other people could have noticed. Or the opposite - being so fidgety or restless that you have been moving around a lot more than usual: not at all 9. Thoughts that you would be better off or of hurting yourself in some way: not at all Total score: 4 Depression Screening Interpretation: Positive Depression Screening Follow-up: Existing condition, In treatment, Community Mental Health Worker F/U and Follow-up Visit Requested Depression Screening Done: Yes 68473 - PHQ-9 Billing: Yes Source: Developed by Drs. Jero Sanders, Caridad Dunn, Derek Henderson and colleagues, with an educational tye from [employer]. Thrive Questionnaire Date Thrive assessed: 05/04/24 I am a: Patient What is your living situation today?: I have a steady place to live Within the past 12 months, did the food you bought not last and you didn't have the money to get more?: Never true Within the past 12 months, did you worry whether your food would run out before you got money to buy more?: Never true Do you have trouble paying for medicines?: No Do you have trouble getting transportation to medical appointments?: No Do you have trouble paying your heating and electricity bill?: No Do you have trouble taking care of your child, family member or friend?: No Do you have trouble with day-to-day activities such as bathing, preparing meals, shopping, managing finances, etc.?: No Are you currently unemployed and looking for a job?: No Are you interested in more education?: No Currently or been in a relationship where the following occur: No concerns reported THRIVE Score: 0 AUDIT C Alcohol Use Questionnaire (AUDIT-C) 1. How often do you have a drink containing alcohol?: Monthly or less 2. How many drinks containing alcohol do you have on a typical day when you are drinking?: 1 or 2 3. How often do you have six or more drinks on one occasion?: Never Total Score: 1 CÉSAR-7 AMB Questionnaire CÉSAR-7 Date CÉSAR - 7 assessed: 05/04/24 Feeling nervous, anxious, or on edge: 0 = Not at all Not being able to stop or control worryin = Not at all Worrying too much about different things: 0 = Not at all Trouble relaxin = Not at all Being so restless that it is hard to sit still: 0 = Not at all Becoming easily annoyed or irritable: 0 = Not at all Feeling afraid as if something awful might happen: 0 = Not at all Total CÉSAR-7 score (0-4 normal; 5-9 mild; 10-14 moderate; 15-21 severe): 0 Source: Developed by Drs. Jero Sanders, Caridad Dunn, Derek Henderson and colleagues, with an educational tye from [employer]. CÉSAR-7 Assessment Billing CÉSAR-7 Assessment Tool: CÉSAR-7 Assessment 79875 Review of Systems Const All systems reviewed & are unremarkable except as noted in HPI and below ENT Denies change in voice, Denies nasal discharge and Denies sinus pain Card Denies chest pain at rest, Denies chest pain with activity, Denies edema, Denies irregular heart rhythm, Denies claudication, Denies dyspnea, Denies dyspnea on exertion, Denies orthopnea, Denies paroxysmal nocturnal dyspnea and Denies slow heart rate Resp Denies cough, Denies dyspnea and Denies dyspnea on exertion GI Denies abdominal pain, Denies change in bowel habits, Denies excessive flatus, Denies nausea and Denies vomiting Physical exam (Primary Care) Vital Signs: Last Vital Signs Pulse 69 05/04/24 07:52 BP 112/70 05/04/24 07:52 Pulse Ox 98 05/04/24 07:52 Oxygen Delivery Method Room Air 05/04/24 07:52 BMI result Body Mass Index 30.6 BMI Assessment/Plan discussion: High BMI High, discussed plan: lifestyle, weight reduction, dietary and physical activity Tobacco/Smoking Status: Tobacco use Status Tobacco use date assessed 05/04/24 05/04/24 08:06 Patient Tobacco Use Status Never used Tobacco 05/04/24 07:56 e-Cigarette/Vaping Use Never Used 05/04/24 07:56 PHQ-9: PHQ-9 Score PHQ-9: Total score 4 05/04/24 08:06 Depression Screening Interpretation: Positive Depression Screening Follow-up: Existing condition, In treatment, Community Mental Health Worker F/U and Follow-up Visit Requested Thrive Assessment: Date of Thrive Assessment Date Thrive assessed 05/04/24 05/04/24 08:06 Currently or been in a relationship where the following occur: No concerns reported Resp Effort & Inspection: normal respiratory effort Auscultation: clear to auscultation bilaterally Cardio Jugular venous distension: no JVD Rate: regular rate Rhythm: regular rhythm Heart sounds: S1 normal heart sound present and S2 normal heart sound present Extrem General: Yes full ROM Assessment and Plan Assessment & Plan (1) Mild recurrent major depression: Code(s): F33.0 - Major depressive disorder, recurrent, mild Plan: Continue duloxetine. Follow-up with psychiatry. (2) Dl's disease: Code(s): E06.3 - Autoimmune thyroiditis Plan: Repeat TSH. (3) GERD (gastroesophageal reflux disease): Code(s): K21.9 - Gastro-esophageal reflux disease without esophagitis Plan: Continue PPIs. (4) Rheumatoid arthritis: Comment: ++TF+++CCP Methotrexate: 12/2018- present Humira: October 2019-January 2021-ineffective Rinvoq: January 2021-patient went to [place] in did not start the medication Enbrel: December 2021-improved symptoms patient self-stopped due to fatigue, sweating, abdominal pain, hematuria likely not related to Enbrel. Cimzia 01/2023-04/2023 - no improvement Xeljanz started 07/2023 Left 12/2023 DC after 2 weeks due to rashes Code(s): M06.9 - Rheumatoid arthritis, unspecified Qualifiers: Rheumatoid arthritis location: multiple sites Rheumatoid factor presence: with rheumatoid factor Qualified Code(s): M05.79 - Rheumatoid arthritis with rheumatoid factor of multiple sites without organ or systems involvement Plan: Continue methotrexate and Xeljanz. Orders: Orders Vitamin D 25-OH Total Today E55.9 - Vitamin D deficiency, unspecified Thyroid Stimulating Hormone Today E06.3 - Autoimmune thyroiditis Vitamin B12 and Folate Today E53.8 - Deficiency of other specified B group vitamins Medications: Refilled meloxicam 15 mg PO DAILY 30 tabs 0RF M06.9 - Rheumatoid arthritis, unspecified Coding Level of Care Code Est Pt Level 4 (46563) Complex EM visit Add On G2211 Diagnoses Mild recurrent major depression F33.0 Dl's disease E06.3 GERD (gastroesophageal reflux disease) K21.9 Rheumatoid arthritis involving multiple sites with positive rheumatoid factor M05.79 Rheumatoid arthritis location: multiple sites Rheumatoid factor presence: with rheumatoid factor Additional Codes CÉSAR-7 Assessment Billing - CÉSAR-7 Assessment Tool: CÉSAR-7 Assessment 37214 ([id number]) Time Spent (min) 24
== END 2024-05-04 08:23 | disposition home or self-care (01) ==
PROVIDERS: PCP Internal Medicine; Visit Provider Internal Medicine
DX: M05.79 Rheumatoid arthritis with rheumatoid factor of multiple sites without organ or systems involvement (principal); F33.0 Major depressive disorder, recurrent, mild; E06.3 Autoimmune thyroiditis; K21.9 Gastro-esophageal reflux disease without esophagitis
CPT/HCPCS: 99214; G2211

== ENCOUNTER 2024-05-04 08:49 | Outpatient (REF) | payer OTHER, SELFPAY ==
[2024-05-04 09:05] LABS: MANUAL DIFF FLAG NO
[2024-05-04 10:19] LABS: Basophils Percent Auto 0.6 % (0-2); Eosinophils Absolute Auto 0.1 X10*3/uL (0.0-0.4); Eosinophils Percent Auto 1.4 % (0-4); Hematocrit 44.9 % (42.0-52.0); Hemoglobin 15.1 g/dl (14.0-18.0); Imm Gran Abs Auto 0.02 X10*3/uL (0.00-0.03); Imm Gran Pct Auto 0.3 % (0.0-0.4); Lymphocytes Absolute Auto 2.2 X10*3/uL (1.2-4.9); Lymphocytes Percent Auto 34.4 % (20-40); Mean Corpuscular HGB Conc 33.6 g/dl (31.0-36.0); Mean Corpuscular Volume 98.2 fL (80.0-98.0); Mean Platelet Volume 9.7 fL (9.4-12.4); Monocytes Absolute Auto 0.7 X10*3/uL (0.1-1.2); Monocytes Percent Auto 10.9 % (2-11); Neutrophils Absolute Auto 3.4 x10*3/uL (2.0-8.3); Neutrophils Percent Auto 52.4 % (45-73); Platelet Count 364 X10*3/uL (160-400); Red Blood Count 4.57 X10*6/uL (4.60-5.80); Red Cell Distribution Width 13.5 % (11.0-16.0); White Blood Count 6.5 X10*3/uL (4.8-10.8)
[2024-05-04 10:37] LABS: Alanine Aminotransferase 19 U/L (0-40); Albumin Level 4.2 g/dL (3.5-5.0); Alkaline Phosphatase 72 U/L (39-117); Anion Gap 11 (12-20); Aspartate Amino Transferase 20 U/L (5-37); Bilirubin Total 0.7 mg/dL (0.0-1.0); Blood Urea Nitrogen 16 mg/dL (9-16); C Reactive Protein 0.21 mg/dL (< or = 0.50); Calcium 9.3 mg/dL (8.4-10.2); Carbon Dioxide 27 mmol/L (22-29); Chloride 106 mmol/L (96-108); Estimated Glomerular Filt Rate > 60; Glucose Random 93 mg/dL (60-115); Potassium 3.9 mmol/L (3.3-5.1); Sodium 140 mmol/L (135-145); Total Protein 7.4 g/dL (6.5-8.0)
[2024-05-04 10:53] LABS: Thyroid Stimulating Hormone 4.96 uIU/mL (0.32-4.0); Vitamin D 25-OH Total 20.1 ng/mL (>30)
[2024-05-04 11:04] LABS: Erythrocyte Sedimentation Rate 2 MM/HR (0-15)
[2024-05-04 11:12] LABS: Folate 5.9 ng/mL (> or = 4.0); Vitamin B12 519 pg/mL (200-900)
== END 2024-05-04 08:50 | disposition home or self-care (01) ==
LOC: HO.LAB 08:49
PROVIDERS: Nurse Practitioner Family; PCP Internal Medicine; Visit Provider Internal Medicine
DX: M05.79 Rheumatoid arthritis with rheumatoid factor of multiple sites without organ or systems involvement (principal); E55.9 Vitamin D deficiency, unspecified; E53.8 Deficiency of other specified B group vitamins; E06.3 Autoimmune thyroiditis; Z79.899 Other long term (current) drug therapy
CPT/HCPCS: 36415; 80053; 82306; 82607; 82746; 84443; 85025; 85652; 86140

== ENCOUNTER 2024-09-15 09:27 | Outpatient (REF) | payer OTHER, SELFPAY ==
[2024-09-15 09:52] LABS: MANUAL DIFF FLAG NO
[2024-09-15 10:38] LABS: Basophils Percent Auto 0.3 % (0-2); Eosinophils Percent Auto 0.5 % (0-4); Hematocrit 41.9 % (42.0-52.0); Hemoglobin 14.6 g/dl (14.0-18.0); Imm Gran Abs Auto 0.03 X10*3/uL (0.00-0.03); Imm Gran Pct Auto 0.3 % (0.0-0.4); Lymphocytes Absolute Auto 2.8 X10*3/uL (1.2-4.9); Lymphocytes Percent Auto 31.3 % (20-40); Mean Corpuscular HGB Conc 34.8 g/dl (31.0-36.0); Mean Corpuscular Volume 94.6 fL (80.0-98.0); Mean Platelet Volume 9.6 fL (9.4-12.4); Monocytes Absolute Auto 0.8 X10*3/uL (0.1-1.2); Monocytes Percent Auto 8.8 % (2-11); Neutrophils Absolute Auto 5.2 x10*3/uL (2.0-8.3); Neutrophils Percent Auto 58.8 % (45-73); Platelet Count 311 X10*3/uL (160-400); Red Blood Count 4.43 X10*6/uL (4.60-5.80); Red Cell Distribution Width 12.8 % (11.0-16.0); White Blood Count 8.8 X10*3/uL (4.8-10.8)
[2024-09-15 11:08] LABS: C Reactive Protein 2.43 mg/dL (< or = 0.50)
[2024-09-15 11:35] LABS: Erythrocyte Sedimentation Rate 10 MM/HR (0-15)
== END 2024-09-15 09:28 | disposition home or self-care (01) ==
LOC: HO.LAB 09:27
PROVIDERS: PCP Internal Medicine; Visit Provider Ophthalmology
DX: M31.5 Giant cell arteritis with polymyalgia rheumatica (principal)
CPT/HCPCS: 36415; 85025; 85652; 86140

== ENCOUNTER 2024-10-05 10:48 | Outpatient (AMB) | payer OTHER, SELFPAY ==
[2024-10-05 10:52] VITALS: BP 140/90; BMI 31.2
--- NOTE | 2024-10-05 10:52 | A.OFFPC_ITS ---
Vital Signs 10/05/24 10:52 Height 5 ft 9 in Weight 211 lb BMI 31.2 BP 140/90 H Blood Pressure Location Lt brachial Position Sitting Intake Visit Reasons: Annual exam Intake Note: Patient here for a physical exam, c/o left side chest pain [employer] Required: No Accompanied by: Spouse Allergies Penicillins [PENICILLINS] Allergy (Unknown, Verified 10/05/24 11:09) RASH morphine Adverse Reaction (Verified 10/05/24 11:09) Itching leflunomide Adverse Reaction (Mild, Uncoded 10/05/24 11:09) blurry vision Medication List - Last Reconciled 10/05/24 by Hayde Baldwin MD acetaminophen (Tylenol Extra Strength) 1,000 mg PO BEDTIME PRN albuterol sulfate 90 mcg/actuation 2 puffs PO Q6H PRN 30 days ascorbic acid (vitamin C) 1 g PO Q6H cholecalciferol (vitamin D3) 50 mcg PO DAILY 90 days cyanocobalamin (vitamin B-12) 1,000 mcg PO DAILY duloxetine 30 mg PO DAILY fluticasone propionate 50 mcg/actuation (Flonase Allergy Relief) 1 spray intranasal DAILY folic acid 1 mg PO DAILY insulin syringe-needle U-100 (BD Insulin Syringe) Use once weekly with methotrexate leflunomide 10 mg PO DAILY meloxicam 15 mg PO DAILY methotrexate sodium (PF) 25 mg subcut QWEEK mv,Ca,mxy-cyqh-QT-lycopene 8 mg iron- 200 mcg-600 mcg (Centrum Men) tabs PO pantoprazole 40 mg PO DAILY prednisone 7.5 mg (3 x 2.5 mg) PO DAILY tofacitinib (Xeljanz) 5 mg PO BID Tobacco use date assessed: 05/04/24 Dental Screening Dental Screen Date: 05/04/24 HPI HPI Comments History of Present Illness Details The patient is a 38-year-old male presenting for an annual physical examination and management of known medical conditions. The patient has a history of rheumatoid arthritis, currently managed under the care of a interdisciplinary professor. He is on methotrexate and the interdisciplinary professor also prescribes pantoprazole for stomach issues, prednisolone at 5 mg daily, and Seltjans twice daily. The patient reports sporadic use of a rescue inhaler, approximately less than once a month, for asthma symptoms, primarily dyspnea and wheezing, which are infrequent. He has a history of being allergic to penicillin. His surgical history includes left-sided leg surgery, laparotomy, and hardware removal from the left humerus. There are no surgical interventions on the other arm. In terms of family history, his mother has Alzheimer's disease and high blood pressure, while his father also has hypertension. The patient experiences severe depression with a PHQ-9 score of 20 and is under psychiatric care. The current medication regimen includes duloxetine. The patient denies any suicidal ideation. He is a non-smoker and abstains from alcohol. [facility] Medical History (Updated 10/05/24 @ 13:44 by Hayde Baldwin MD) Mild recurrent major depression Recurrent depression Lupus anticoagulant positive GERD (gastroesophageal reflux disease) History of febrile seizure meterman methotrexate user Rheumatoid arthritis Arthritis Asthma Surgical History (Updated 10/05/24 @ 11:16 by Hayde Baldwin MD) History of surgery on lower extremity Hx of exploratory laparotomy S/P ORIF (open reduction internal fixation) fracture Family History Mother Alzheimer disease Hypertension Father Hypertension Social History Household Members: None Housing: Apartment Are you a primary medicare compliance auditor to a significant other at home: No Do you presently have visiting nurse or other home services: No Alcohol intake: never Patient Tobacco Use Status: Never used Tobacco e-Cigarette/Vaping Use: Never Used Second Hand Smoke Exposure: No service: No Current occupational status: employed 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 1. Little interest or pleasure in doing things: nearly every day 2. Feeling down, depressed, or hopeless: more than half the days 3. Trouble falling or staying asleep, or sleeping too much: nearly every day 4. Feeling tired or having little energy: nearly every day 5. Poor appetite or overeating: more than half the days 6. Feeling bad about yourself - or that you are a failure or have let yourself or your family down: more than half the days 7. Trouble concentrating on things, such as reading the newspaper or watching television: nearly every day 8. Moving or speaking so slowly that other people could have noticed. Or the opposite - being so fidgety or restless that you have been moving around a lot more than usual: more than half the days 9. Thoughts that you would be better off or of hurting yourself in some way: not at all Total score: 20 Depression Screening Interpretation: Positive (no suicidal thoughts) Depression Screening Follow-up: Existing condition, In treatment, Community Mental Health Worker F/U and Follow-up Visit Requested Depression Screening Done: Yes 91386 - PHQ-9 Billing: Yes Source: Developed by Drs. Jero Sanders, Caridad Dunn, Derek Henderson and colleagues, with an educational tye from Currently. Thrive Questionnaire Date Thrive assessed: 05/04/24 I am a: Patient What is your living situation today?: I have a place to live, but I am worried about losing it in the future Within the past 12 months, did the food you bought not last and you didn't have the money to get more?: Sometimes True Within the past 12 months, did you worry whether your food would run out before you got money to buy more?: Sometimes True Do you have trouble paying for medicines?: I choose not to answer this question Do you have trouble getting transportation to medical appointments?: No Do you have trouble paying your heating and electricity bill?: No Do you have trouble taking care of your child, family member or friend?: I choose not to answer this question Do you have trouble with day-to-day activities such as bathing, preparing meals, shopping, managing finances, etc.?: Yes Are you currently unemployed and looking for a job?: I choose not to answer this question Are you interested in more education?: I choose not to answer this question Please select the resources that you would like help with: Food Currently or been in a relationship where the following occur: I choose not to answer THRIVE Score: 3 AUDIT C Alcohol Use Questionnaire (AUDIT-C) 1. How often do you have a drink containing alcohol?: Never Total Score: 0 Score Reviewed/Action Taken: No CÉSAR-7 AMB Questionnaire CÉSAR-7 Date CÉSAR - 7 assessed: 05/04/24 Feeling nervous, anxious, or on edge: 1 = Several days Not being able to stop or control worryin = Several days Worrying too much about different things: 1 = Several days Trouble relaxin = More than half the days Being so restless that it is hard to sit still: 0 = Not at all Becoming easily annoyed or irritable: 0 = Not at all Feeling afraid as if something awful might happen: 0 = Not at all Total CÉSAR-7 score (0-4 normal; 5-9 mild; 10-14 moderate; 15-21 severe): 5 Source: Developed by Drs. Jero Sanders, Caridad Dunn, Derek Henderson and colleagues, with an educational tye from Currently. CÉSAR-7 Assessment Billing CÉSAR-7 Assessment Tool: CÉSAR-7 Assessment 28813 Review of Systems Const Details: - Respiratory: Reports infrequent need for an inhaler for asthma symptoms. - Psychiatric: Reports severe depression, without suicidal ideation. Physical exam (Primary Care) Vital Signs: Last Vital Signs BP 140/90 H 10/05/24 10:52 BMI result Body Mass Index 31.2 Tobacco/Smoking Status: Tobacco use Status Tobacco use date assessed 05/04/24 10/05/24 10:58 Patient Tobacco Use Status Never used Tobacco 10/05/24 10:58 e-Cigarette/Vaping Use Never Used 10/05/24 10:58 PHQ-9: PHQ-9 Score PHQ-9: Total score 20 10/05/24 11:29 Depression Screening Interpretation: Positive (no suicidal thoughts) Depression Screening Follow-up: Existing condition, In treatment, Community Mental Health Worker F/U and Follow-up Visit Requested Thrive Assessment: Date of Thrive Assessment Date Thrive assessed 05/04/24 10/05/24 10:58 Currently or been in a relationship where the following occur: I choose not to answer Const Other: General: Cooperative, healthy appearing, comfortable, no acute distress and well developed Orientation: Patient oriented x3 Limitations: No limitations Head: Normal to inspection Ears: Hearing grossly normal bilaterally Nose: Normal external nose present Face and sinus: Normal facial exam Eyes: Appearance normal, both eyes and all related structures Neck: Normal visual inspection and Yes full ROM Respiratory: Normal respiratory effort and able to speak in complete sentences. Clear to auscultation bilaterally Cardiovascular: Regular rate and rhythm. Normal S1 and S2 GI: Normal to inspection. Soft to palpation and nontender Skin: No rashes or lesions noted Neuro: Patient oriented x3 Extremities: Synovitis in hands Office Procedures Flu Questionnaire Does the patient have a severe egg allergy?: No Does the patient have severe life threatening allergies?: No Does the patient have a fever or illness today?: No Has the patient ever had Guillain-Strathcona Syndrome?: No Has the patient ever had any past reaction to a flu shot?: No Immunizations Fluarix Triv 4126-9900 (PF) 45 mcg (15 mcg x 3)/0.5 mL IM syringe Performing Provider: Hayde Baldwin MD [facility] Administered by: JOSE Denton on 10/05/24 11:29 Dose Route Admin Location Dispensed Lot Number Expiration Date NDC Resident Services Coordinator 0.5 mL IM Left Deltoid 0.5 mL [id number] 04/23/25 [id number] [employer] VIS Given Date VIS Provided VIS Publication Date 10/05/24 Single Vaccine 21 Eligibility Eligibility Date Funding Source Not [facility] Eligible 10/05/24 Private Coding Level of Care Code Est Pt Level 3 (20349) Est Pt Prev Care 18-39y(04496) Diagnoses Physical exam Z00.00 Rheumatoid arthritis involving multiple sites with positive rheumatoid factor M05.79 Rheumatoid arthritis location: multiple sites Rheumatoid factor presence: with rheumatoid factor Severe recurrent major depression 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 Asthma J45.909 Additional Codes CÉSAR-7 Assessment Billing - CÉSAR-7 Assessment Tool: CÉSAR-7 Assessment 63965 ([id number]) PHQ-9 - 74226 - PHQ-9 Billing: Yes ([id number]) Time Spent (min) 35 Assessment & Plan Assessment & Plan (1) Physical exam: Code(s): Z00.00 - Encounter for general adult medical examination without abnormal findings Category: Medical (2) Rheumatoid arthritis: Comment: ++TF+++CCP Methotrexate: 12/2018- present Humira: October 2019-January 2021-ineffective Rinvoq: January 2021-patient went to [place] in did not start the medication Enbrel: December 2021-improved symptoms patient self-stopped due to fatigue, sweating, abdominal pain, hematuria likely not related to Enbrel. Cimzia 01/2023- 04/2023 - no improvement Xeljanz started 07/2023 Left 12/2023 DC after 2 weeks due to rashes Code(s): M06.9 - Rheumatoid arthritis, unspecified Category: Medical Qualifiers: Rheumatoid arthritis location: multiple sites Rheumatoid factor presence: with rheumatoid factor Qualified Code(s): M05.79 - Rheumatoid arthritis with rheumatoid factor of multiple sites without organ or systems involvement (3) Severe recurrent major depression: Code(s): F33.2 - Major depressive disorder, recurrent severe without psychotic features Category: Medical (4) Central serous chorioretinopathy of left eye: Code(s): H35.712 - Central serous chorioretinopathy, left eye Category: Medical (5) Asthma: Code(s): J45.909 - Unspecified asthma, uncomplicated Category: Medical Plan - Refill prescriptions for current medications, including methotrexate, pantoprazole, prednisolone, and Seltjans. - Continue monitoring and management of depression with psychiatric support. - Continue management of hypertension with careful monitoring. - Arrange for necessary vaccinations as discussed. Patient was informed and verbally consented to the use of an ambient scribe for clinic note documentation during this visit. I discussed the patient's current medical status, emphasizing the importance of maintaining regular follow-ups with the interdisciplinary professor for rheumatoid arthritis. We reviewed his depression treatment plan and ensured that he was comfortable with the current management by his psychiatrist. The need for laboratory tests to monitor cholesterol levels was emphasized, as well as the potential requirement for vaccinations to ensure comprehensive health maintenance. We also discussed the possible need for an ECG and chest X-ray as part of routine health evaluations. The patient was advised to continue his prescribed medications and report any adverse effects immediately. Orders: Orders ECG 12 lead EKG Today R07.9 - Chest pain, unspecified XR chest 2V Today R07.9 - Chest pain, unspecified Thyroid Stimulating Hormone Today E06.3 - Autoimmune thyroiditis Vitamin D 25-OH Total Today E55.9 - Vitamin D deficiency, unspecified, R79.89 - Other specified abnormal findings of blood chemistry Vitamin B12 and Folate Today E53.8 - Deficiency of other specified B group vitamins IRON PROFILE Today D64.9 - Anemia, unspecified Complete Blood Count Auto Diff Today D64.9 - Anemia, unspecified Lipid Panel Today Z00.00 - Encounter for general adult medical examination without abnormal findings Comprehensive [place]. Panel Fast Today Z00.00 - Encounter for general adult medical examination without abnormal findings Influenza [id number] Immunization Today Z23 - Encounter for immunization Free T4 (Free Thyroxine) Today E06.3 - Autoimmune thyroiditis Medications: New albuterol sulfate 90 mcg/actuation (Ventolin HFA) 2 puffs inhalation Q6H PRN 8.5 grams 1RF shortness of breath or wheezing 30 days J45.909 - Unspecified asthma, uncomplicated Refilled albuterol sulfate 90 mcg/actuation 2 puffs PO Q6H PRN 8.5 grams 6RF shortness of breath or wheezing 30 days meloxicam 15 mg PO DAILY 30 tabs 0RF M06.9 - Rheumatoid arthritis, unspecified Patient Instructions: - Continue current medications as prescribed. - Schedule follow-up appointments with the interdisciplinary professor and psychiatrist as recommended. - Complete suggested laboratory tests for cholesterol. - Ensure routine vaccinations are up to date. - Report any abnormal symptoms or side effects of medications. - Continue to avoid smoking and alcohol consumption.
== END 2024-10-05 11:34 | disposition home or self-care (01) ==
PROVIDERS: PCP Internal Medicine; Visit Provider Internal Medicine
DX: Z00.00 Encounter for general adult medical examination without abnormal findings (principal); M05.79 Rheumatoid arthritis with rheumatoid factor of multiple sites without organ or systems involvement; F33.2 Major depressive disorder, recurrent severe without psychotic features; H35.712 Central serous chorioretinopathy, left eye; J45.909 Unspecified asthma, uncomplicated; Z23 Encounter for immunization

== ENCOUNTER 2024-10-05 10:48 | Outpatient (REF) | payer OTHER, SELFPAY ==
--- NOTE | ~2024-10-05 | XR_ITS ---
EXAMINATION: XR CHEST CLINICAL INFORMATION: R07.9 - Chest pain, unspecified COMPARISON: September 2021. TECHNIQUE: 2 views of the chest were obtained. FINDINGS: No airspace consolidation or pneumothorax seen. Minimal linear atelectatic change noted toward the right base. Hilar regions and pulmonary vascularity unremarkable. Pleural surfaces appear clear. XR/XR chest 2V IMPRESSION: No evidence for acute airspace infiltrate. Minimal linear atelectasis toward the right base. Electronically signed by: Mike Rodas MD 10/05/2024 04:51 PM EST
--- NOTE | 2024-10-05 11:56 | ECG_ITS ---
Test Reason : cp Blood Pressure : / mmHG Vent. Rate : 073 BPM Atrial Rate : 073 BPM P-R Int : 152 ms QRS Dur : 096 ms QT Int : 376 ms P-R-T Axes : 058 -16 021 degrees QTc Int : 414 ms Normal sinus rhythm Normal ECG When compared with ECG of 14-OCT-2021 16:23, No significant change was found Referred By: Hayde Baldwin Electronically Signed By:ZORA VELEZ MD
[2024-10-05 12:09] LABS: MANUAL DIFF FLAG NO
[2024-10-05 12:23] LABS: Basophils Absolute Auto 0.1 X10*3/uL (0.0-0.2); Basophils Percent Auto 0.7 % (0-2); Eosinophils Absolute Auto 0.1 X10*3/uL (0.0-0.4); Eosinophils Percent Auto 0.6 % (0-4); Hematocrit 44.8 % (42.0-52.0); Hemoglobin 15.1 g/dl (14.0-18.0); Imm Gran Abs Auto 0.03 X10*3/uL (0.00-0.03); Imm Gran Pct Auto 0.4 % (0.0-0.4); Lymphocytes Absolute Auto 1.9 X10*3/uL (1.2-4.9); Lymphocytes Percent Auto 22.9 % (20-40); Mean Corpuscular HGB Conc 33.7 g/dl (31.0-36.0); Mean Corpuscular Hemoglobin 32.7 pg (27.0-33.0); Mean Platelet Volume 9.1 fL (9.4-12.4); Monocytes Absolute Auto 0.7 X10*3/uL (0.1-1.2); Monocytes Percent Auto 8.4 % (2-11); Neutrophils Absolute Auto 5.4 x10*3/uL (2.0-8.3); Platelet Count 300 X10*3/uL (160-400); Red Blood Count 4.62 X10*6/uL (4.60-5.80); Red Cell Distribution Width 13.2 % (11.0-16.0); White Blood Count 8.1 X10*3/uL (4.8-10.8)
[2024-10-05 12:58] LABS: Alanine Aminotransferase 25 U/L (0-40); Albumin Level 4.2 g/dL (3.5-5.0); Alkaline Phosphatase 78 U/L (39-117); Anion Gap 11 (12-20); Aspartate Amino Transferase 26 U/L (5-37); Bilirubin Total 0.5 mg/dL (0.0-1.0); Blood Urea Nitrogen 19 mg/dL (9-16); C Reactive Protein 0.32 mg/dL (< or = 0.50); Calcium 9.6 mg/dL (8.4-10.2); Carbon Dioxide 27 mmol/L (22-29); Chloride 107 mmol/L (96-108); Cholesterol 158 mg/dL (<200); Estimated Glomerular Filt Rate > 60; Glucose Fasting 96 mg/dL (60-99); HDL Cholesterol 36 mg/dL (>40); Iron 88 mcg/dL (45-160); LDL Cholesterol Calculated 97 mg/dL (<100); Percent Iron Saturation 29 % (15-50); Potassium 3.9 mmol/L (3.3-5.1); Sodium 141 mmol/L (135-145); Total Iron Binding Capacity 299 mcg/dL (228-428); Total Protein 7.7 g/dL (6.5-8.0); Triglycerides 125 mg/dL (<150); Unsaturated Iron Binding 211 ug/dL
[2024-10-05 13:01] LABS: Erythrocyte Sedimentation Rate 6 MM/HR (0-15)
[2024-10-05 13:07] LABS: Free T4 (Free Thyroxine) 1.01 ng/dL (0.71-1.85); Thyroid Stimulating Hormone 3.39 uIU/mL (0.32-4.0); Vitamin D 25-OH Total 27.2 ng/mL (>30)
[2024-10-05 13:22] LABS: Vitamin B12 547 pg/mL (200-900)
== END 2024-10-05 10:49 | disposition home or self-care (01) ==
LOC: HO.LAB 10:48
PROVIDERS: Nurse Practitioner Family; PCP Internal Medicine; Visit Provider Internal Medicine
DX: Z00.00 Encounter for general adult medical examination without abnormal findings (principal); Z23 Encounter for immunization; M05.79 Rheumatoid arthritis with rheumatoid factor of multiple sites without organ or systems involvement; F33.2 Major depressive disorder, recurrent severe without psychotic features; H35.712 Central serous chorioretinopathy, left eye; J45.909 Unspecified asthma, uncomplicated; Z79.631 Long term (current) use of antimetabolite agent; Z79.899 Other long term (current) drug therapy; Z88.0 Allergy status to penicillin; R07.9 Chest pain, unspecified; D64.9 Anemia, unspecified; E06.3 Autoimmune thyroiditis; E53.8 Deficiency of other specified B group vitamins; E55.9 Vitamin D deficiency, unspecified
CPT/HCPCS: 36415; 71046; 80053; 80061; 82306; 82607; 82746; 83540; 84439; 84443; 85025; 85652; 86140; 90471; 90656; 93005; 96127; 99396

== ENCOUNTER → 2024-10-05 11:56 | Outpatient (BNV) | payer OTHER, SELFPAY | PROVIDERS: PCP Internal Medicine; Visit Provider Internal Medicine Cardiovascular Disease | DX: R07.9 Chest pain, unspecified (principal) | CPT/HCPCS: 93010 ==

== ENCOUNTER 2024-10-19 15:08 | Outpatient (AMB) | payer OTHER, SELFPAY ==
--- NOTE | 2024-10-19 15:11 | MHC.OFFVIS ---
Vital Signs 10/19/24 15:20 Height 5 ft 9 in Weight 216 lb 0.848 oz BMI 31.9 BP 112/70 Blood Pressure Location Lt brachial Position Sitting Pulse 63 Pulse Source Pulse Oximeter Pulse Oximetry (%) 97 Oxygen Delivery Method Room Air Intake Visit Reasons: RA Intake Note: Patient presents for RA. Prescription Clerk Lenses Required: Yes Prescription Clerk Lenses Language: Crumb Packer Services: Prescription Clerk Lenses Present Prescription Clerk Lenses Name: Jero #[id number] Information Interpreted: non-clinical & clinical Allergies prednisone Allergy (Severe, Verified 10/19/24 15:17) Blurry Vision Penicillins [PENICILLINS] Allergy (Unknown, Verified 10/19/24 15:15) RASH morphine Adverse Reaction (Verified 10/19/24 15:15) Itching leflunomide Adverse Reaction (Mild, Uncoded 10/05/24 11:09) blurry vision Medication List - Last Reconciled 10/19/24 by Adrián James MD acetaminophen (Tylenol Extra Strength) 1,000 mg PO BEDTIME PRN albuterol sulfate 90 mcg/actuation 2 puffs PO Q6H PRN 30 days albuterol sulfate 90 mcg/actuation (Ventolin HFA) 2 puffs inhalation Q6H PRN 30 days ascorbic acid (vitamin C) 1 g PO Q6H cholecalciferol (vitamin D3) 50 mcg PO DAILY 90 days cyanocobalamin (vitamin B-12) 1,000 mcg PO DAILY duloxetine 30 mg PO DAILY fluticasone propionate 50 mcg/actuation (Flonase Allergy Relief) 1 spray intranasal DAILY folic acid 1 mg PO DAILY insulin syringe-needle U-100 (BD Insulin Syringe) Use once weekly with methotrexate meloxicam 15 mg PO DAILY methotrexate sodium (PF) 25 mg subcut QWEEK mv,Ca,ckx-wuuz-AD-lycopene 8 mg iron- 200 mcg-600 mcg (Centrum Men) tabs PO pantoprazole 40 mg PO DAILY tofacitinib (Xeljanz) 5 mg PO BID HPI Comments Details: This is a 38-year-old male with seropositive erosive RA presents for follow-up. For more than a month he has been having blurry vision and flashes of light especially the left eye. He was evaluated by Dr. 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 He was advised to reach out to Rheumatology to lower and discontinue prednisone. At that time I asked patient to have his prednisone dose. Patient was last seen 03/2024. Patient currently is not taking Xeljanz or methotrexate. He is only on prednisone 5 mg daily. He continues to have diffuse joint pain especially his hands, wrists, fingers, left ankle and both shoulders he has been having chest pain, most notable with deep breaths. He had a chest x-ray and EKG which were unremarkable. [facility] Medical History Mild recurrent major depression Recurrent depression Lupus anticoagulant positive GERD (gastroesophageal reflux disease) History of febrile seizure half-way methotrexate user Rheumatoid arthritis Arthritis Asthma Surgical History History of surgery on lower extremity Hx of exploratory laparotomy S/P ORIF (open reduction internal fixation) fracture Family History Mother Alzheimer disease Hypertension Father Hypertension Social History Household Members: None Housing: Apartment Are you a primary animal care attendant to a significant other at home: No Do you presently have visiting nurse or other home services: No Alcohol intake: never Patient Tobacco Use Status: Never used Tobacco e-Cigarette/Vaping Use: Never Used Second Hand Smoke Exposure: No service: No Current occupational status: employed 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 Cognitive needs: Yes (cane) Hearing needs: No Vision needs: No Review of Systems Card Reports chest pain Musc Reports arthralgias, Reports joint swelling, Reports limited range of motion and Reports stiffness Physical Exam Vital Signs: Last Vital Signs Pulse 63 10/19/24 15:20 BP 112/70 10/19/24 15:20 Pulse Ox 97 10/19/24 15:20 Oxygen Delivery Method Room Air 10/19/24 15:20 BMI result Body Mass Index 31.9 Const General: cooperative, healthy appearing and comfortable Nutritional Appearance: overweight Orientation/consciousness: patient oriented x3 Limitations: no limitations HEENT Head: Yes normocephalic and Yes atraumatic Mouth: moist mucous membranes Resp Effort & Inspection: normal respiratory effort and able to speak in complete sentences Auscultation: clear to auscultation bilaterally Cardio Rate: regular rate Rhythm: regular rhythm Skin General skin exam: no rashes or lesions noted Neuro General: patient oriented x3 Extrem Other: Significant RA deformities both hands with multiple swollen and tender joints Bilateral wrist tenderness and pain with any range of motion Bilateral elbow pain with flexion and extension Limited bilateral shoulder abduction Bilateral ankle swelling much more prominent on the left associated with warmth and tenderness Multiple MTP tenderness bilaterally Physical exam is similar to last visit Assessment & Plan Assessment & Plan (1) Rheumatoid arthritis: Comment: ++RF+++CCP Methotrexate: 12/2018- present Humira: October 2019-January 2021-ineffective Rinvoq: January 2021-patient went to [place] in did not start the medication Enbrel: December 2021-improved symptoms patient self-stopped due to fatigue, sweating, abdominal pain, hematuria likely not related to Enbrel. Cimzia 01/2023-04/2023 - no improvement Xeljanz started 07/2023 Lef 12/2023 DC after 2 weeks due to rashes Code(s): M06.9 - Rheumatoid arthritis, unspecified Category: Medical Qualifiers: Rheumatoid arthritis location: multiple sites Rheumatoid factor presence: with rheumatoid factor Qualified Code(s): M05.79 - Rheumatoid arthritis with rheumatoid factor of multiple sites without organ or systems involvement Plan: This is a 38-year-old male with seropositive erosive RA who returns for follow-up. 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 I had asked patient to lower his prednisone dose. He is currently on prednisone 5 mg daily. He is not on methotrexate or Xeljanz. On exam he has multiple swollen and tender joints. 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: Code(s): Z79.899 - Other ferry terminal agent (current) drug therapy Category: Medical (4) Central serous chorioretinopathy of left eye: Code(s): H35.712 - Central serous chorioretinopathy, left eye Category: Medical (5) Chest pain: Code(s): R07.9 - Chest pain, unspecified Category: Medical Plan: Will check a 2D echo to evaluate for pericarditis Plan I spent 30 minutes reviewing patient's chart, evaluating patient, ordering diagnostic workup, counseling patient and documenting in the chart Orders: Orders Complete Blood Count Auto Diff 3 Months M05.79 - Rheumatoid arthritis with rheumatoid factor of multiple sites without organ or systems involvement, Z79.899 - Other ferry terminal agent (current) drug therapy Comprehensive Met. Panel 3 Months M05.79 - Rheumatoid arthritis with rheumatoid factor of multiple sites without organ or systems involvement, Z79.899 - Other jail (current) drug therapy Erythrocyte Sedimentation Rate 3 Months M05.79 - Rheumatoid arthritis with rheumatoid factor of multiple sites without organ or systems involvement, Z79.899 - Other jail (current) drug therapy CA echo transthoracic complete Today R07.9 - Chest pain, unspecified C Reactive Protein 3 Months M05.79 - Rheumatoid arthritis with rheumatoid factor of multiple sites without organ or systems involvement, Z79.899 - Other ferry terminal agent (current) drug therapy Hepatitis A,B,C Profile 3 Months Z11.59 - Encounter for screening for other viral diseases T Spot TB 3 Months Z11.7 - Encounter for testing for latent tuberculosis infection Medications: Changed From methotrexate sodium (PF) 25 mg subcut QWEEK 8 mL 2RF To methotrexate sodium (PF) use 1 mL every week & discard the rest 25 mg subcut QWEEK 8 mL 2RF From insulin syringe-needle U-100 (BD Insulin Syringe) Use once weekly with methotrexate 10 ea 0RF To insulin syringe-needle U-100 Use once weekly with methotrexate 10 ea 0RF Refilled folic acid 1 mg PO DAILY 90 tabs 1RF M05.79 - Rheumatoid arthritis with rheumatoid factor of multiple sites without organ or systems involvement tofacitinib (Xeljanz) 5 mg PO BID 60 tabs 2RF M06.9 - Rheumatoid arthritis, unspecified Coding Level of Care Code Est Pt Level 4 (36109) Complex EM visit Add On G2211 Diagnoses Rheumatoid arthritis involving multiple sites with positive rheumatoid factor M05.79 Rheumatoid arthritis location: multiple sites Rheumatoid factor presence: with rheumatoid factor 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
[2024-10-19 15:20] VITALS: BP 112/70; PULSE 63; O2SAT 97; BMI 31.9
== END 2024-10-19 15:54 | disposition home or self-care (01) ==
LOC: HO.RHE 15:08
PROVIDERS: PCP Internal Medicine; Visit Provider Student in an Organized Health Care Education/Training Program
DX: M05.79 Rheumatoid arthritis with rheumatoid factor of multiple sites without organ or systems involvement (principal); Z79.899 Other long term (current) drug therapy; H35.712 Central serous chorioretinopathy, left eye; R07.9 Chest pain, unspecified
CPT/HCPCS: 99214; G2211

== ENCOUNTER → 2024-10-19 15:08 | Outpatient (BNVA) | payer OTHER, SELFPAY | PROVIDERS: PCP Internal Medicine; Visit Provider Student in an Organized Health Care Education/Training Program | DX: M05.79 Rheumatoid arthritis with rheumatoid factor of multiple sites without organ or systems involvement (principal); H35.712 Central serous chorioretinopathy, left eye; R07.9 Chest pain, unspecified; Z79.899 Other long term (current) drug therapy | CPT/HCPCS: 99212 ==

== ENCOUNTER → 2024-10-31 13:35 | Outpatient (REF) | payer OTHER, SELFPAY ==
--- NOTE | 2024-10-31 13:39 | CA_ITS ---
Transthoracic Echocardiogram Patient (Last, First, Middle): Negrito Tanner, Gender: Male Date of : 1985 Age: 39 Procedure Date: 10/31/2024 Procedure Type: Transthoracic Echocardiogram Location: OP Height: 175.26 cm Weight: 95.26 kg BSA: 2.11 m2 Heart Rate: 73 bpm BP: 142 / 100 mmHg Church Official: CLARK Referring MD: Adrián James MD Symptoms: R07.9 - Chest pain, unspecified Study Quality: Adequate ECG Rhythm: Sinus Conclusions: - The left ventricular systolic function is normal. The calculated ejection fraction is 63% by biplane method. - No obvious valvular pathology seen on this study. Findings Left Ventricle Normal left ventricular cavity size. There is mildly increased left ventricular wall thickness. The left ventricular systolic function is normal. The calculated ejection fraction is 63% by biplane method. There is no evidence of regional wall motion abnormalities. Diastolic function is normal for age. Right Ventricle Normal right ventricular cavity size and systolic function. Atria Both atria are normal in size. Aortic Valve There is a normal trileaflet aortic valve. There is no aortic valve stenosis. There is no aortic valve regurgitation. Mitral Valve The mitral valve appears normal. There is no mitral valve regurgitation. There is no mitral valve stenosis. Pulmonic Valve The pulmonic valve is likely normal. Tricuspid Valve There is trace tricuspid valve regurgitation. Tricuspid regurgitation envelope is inadequate for calculation of right ventricular systolic pressure. Great Vessels The asc aorta and aortic arch are normal in size. Venous The inferior vena cava is mildly dilated and collapses less than 50% with inspiration. Pericardium/Pleural There is no evidence of pericardial effusion. Prior Study Comparison No prior study available for comparison. Recommendations, Care & Conclusions No obvious valvular pathology seen on this study. Measurements 2D Linear Measurements IVSd: 1.09 0.6-0.9/0.6-1.0 cm LVIDd: 4.58 3.9-5.3/4.2-5.9 cm LVIDd Index: 2.17 2.4-3.2/2.2-3.1 cm/m2 LVIDs: 2.55 2.0-3.6 cm LVPWd: 1.31 0.7-1.1 cm LA Diam: 3.90 2.7-3.8/3.0-4.0 cm LAIDs Index: 1.85 1.5-2.3 cm/m2 LV Mass: 253.76 67-162/88-224 g LV Mass Index: 120.26 43-95/49-115 g/m2 LVOT Diam: 2.20 3.0+(-)1.3 cm 2D Systolic Function EF 4C: 57.40 >55% EF 2C: 67.30 >55% EF BiP: 62.70 >55% Mitral Valve MV Pk E: 0.79 MV PK A: 0.66 MV Decel Time: 195.00 E/A: 1.20 E'Lateral: 10.70 E'Medial: 8.27 E/E' Med: 9.60 E/E' Lat: 7.40 PHT: 57.00 MVA PHT: 3.86 Decel Murray: 4.07 Aortic Valve AoV Pk Jose: 1.09 AoV Mn Jose: 0.79 AoV VTI: 0.23 AoV Pk Grad: 5.00 Aov Mn Grad: 3.00 DONN Cont.VTI: 3.12 LVOT LVOT Pk Joes: 0.94 LVOT Mn Jose: 0.68 LVOT VTI: 0.19 LVOT Pk Grad: 4.00 LVOT Mn Grad: 2.00 LVOT Diam: 2.20 LVOT Area: 3.80 Diastolic Function MV Pk E: 0.79 MV Pk A: 0.66 E/A: 1.20 E'Medial: 8.27 E/E' Med: 9.60 E' Laterial: 10.70 E/E' Lat: 7.40 Right Ventricle TAPSE (mm): 23.00 TVS' Jose: 12.80 Tricuspid Valve RA Press: 15.00 Great Vessels Aorta Sinus of Valsalva: 3.90 2.0-3.5 cm Ao Asc: 3.40 2.1-3.4 cm Ao Arch: 2.90 Pulmonary Valve PV Pk Jose: 0.94 Peak PV Grad: 4.00 Updated in Other Vendor System with Status of Final Bobby Charlton MD electronically signed on 11/01/2024 11:38:32 AM with status of Final
== END ==
LOC: HO.CARD 13:35
PROVIDERS: PCP Internal Medicine; Visit Provider Student in an Organized Health Care Education/Training Program
DX: R07.9 Chest pain, unspecified (principal)
CPT/HCPCS: 93306

== ENCOUNTER → 2024-10-31 13:39 | Outpatient (BNV) | payer OTHER, SELFPAY | PROVIDERS: PCP Internal Medicine; Visit Provider Internal Medicine | DX: R07.9 Chest pain, unspecified (principal) | CPT/HCPCS: 93306 ==

== ENCOUNTER 2025-01-17 13:51 | Outpatient (REF) | payer OTHER, SELFPAY ==
[2025-01-17 15:28] LABS: MANUAL DIFF FLAG NO
[2025-01-17 15:53] LABS: Appearance Urine Clear; Color Urine Dark Yellow; Glucose Urine UA Negative (Negative); Leukocyte Esterase Urine Small (1+) (Negative); Nitrite Urine Negative (Negative); Specific Gravity - Urine >= 1.030 (1.005-1.025); UMIC TRIGGER UA YES; Urine Blood Moderate (2+) (Negative); Urine Ketones 15 mg/dL (Negative); Urine Protein 30 (1+) mg/dL (Neg-Trace)
[2025-01-17 15:56] LABS: Basophils Percent Auto 0.4 % (0-2); Eosinophils Absolute Auto 0.1 X10*3/uL (0.0-0.4); Eosinophils Percent Auto 0.7 % (0-4); Hemoglobin 14.3 g/dl (14.0-18.0); Imm Gran Abs Auto 0.02 X10*3/uL (0.00-0.03); Imm Gran Pct Auto 0.2 % (0.0-0.4); Lymphocytes Absolute Auto 2.8 X10*3/uL (1.2-4.9); Mean Corpuscular HGB Conc 34.9 g/dl (31.0-36.0); Mean Corpuscular Hemoglobin 32.9 pg (27.0-33.0); Mean Corpuscular Volume 94.3 fL (80.0-98.0); Mean Platelet Volume 9.1 fL (9.4-12.4); Monocytes Absolute Auto 0.7 X10*3/uL (0.1-1.2); Monocytes Percent Auto 7.9 % (2-11); Neutrophils Absolute Auto 5.7 x10*3/uL (2.0-8.3); Neutrophils Percent Auto 60.8 % (45-73); Platelet Count 362 X10*3/uL (160-400); Red Blood Count 4.35 X10*6/uL (4.60-5.80); Red Cell Distribution Width 12.9 % (11.0-16.0); White Blood Count 9.4 X10*3/uL (4.8-10.8)
[2025-01-17 15:58] LABS: Bacteria Urine None Seen (None Seen); Hyaline Casts Urine 0-2 /LPF (0-2); RBC Urine >20 /HPF (0-2); Squamous Epithelial Cell Urine 0-2 /HPF (0-2); WBC Urine 21-50 /HPF (0-5)
[2025-01-17 16:24] LABS: Alanine Aminotransferase 26 U/L (0-40); Albumin Level 4.1 g/dL (3.5-5.0); Alkaline Phosphatase 86 U/L (39-117); Anion Gap 9 (12-20); Aspartate Amino Transferase 22 U/L (5-37); Bilirubin Total 0.6 mg/dL (0.0-1.0); Blood Urea Nitrogen 20 mg/dL (9-16); C Reactive Protein 0.53 mg/dL (< or = 0.50); Calcium 9.5 mg/dL (8.4-10.2); Carbon Dioxide 28 mmol/L (22-29); Chloride 109 mmol/L (96-108); Cholesterol 150 mg/dL (<200); Estimated Glomerular Filt Rate > 60; Glucose Random 62 mg/dL (60-115); HDL Cholesterol 34 mg/dL (>40); LDL Cholesterol Calculated 90 mg/dL (<100); Potassium 4.2 mmol/L (3.3-5.1); Sodium 142 mmol/L (135-145); Total Protein 7.4 g/dL (6.5-8.0); Triglycerides 131 mg/dL (<150)
[2025-01-17 16:35] LABS: Erythrocyte Sedimentation Rate 13 MM/HR (0-15)
[2025-01-18 04:49] LABS: HBS Num1 > 1000.00 mIU/mL (0-7.99); HBc Num1 0.16 S/CO (0.00-0.79); HBsAGNum1 0.32 S/CO (0.00-0.99); Hepatitis A Antibody IgM 0.17 Index (0-0.79); Hepatitis B Core Antibody Nonreactive (Nonreactive); Hepatitis B Surface Antigen Negative (Negative); ~HepC Num1 0.15 S/CO (0.00-0.79); ~Hepatitis A Antibody IgM Nonreactive (Nonreactive); ~Hepatitis B Surface Antibody REACTIVE (Nonreactive); ~Hepatitis C Antibody Nonreactive (Nonreactive)
[2025-01-20 09:48] LABS: TS Negative Control Passed; TS Panel A 0; TS Panel B 0; TS Positive Control Passed; TSpotTB Negative (Negative)
== END 2025-01-17 13:52 | disposition home or self-care (01) ==
LOC: HO.LAB 13:51
PROVIDERS: PCP Internal Medicine; Visit Provider Student in an Organized Health Care Education/Training Program
DX: M05.79 Rheumatoid arthritis with rheumatoid factor of multiple sites without organ or systems involvement (principal); Z51.81 Encounter for therapeutic drug level monitoring; Z79.620 Long term (current) use of immunosuppressive biologic; R31.9 Hematuria, unspecified; Z79.899 Other long term (current) drug therapy
CPT/HCPCS: 20605; 36415; 80053; 80061; 81001; 85025; 85652; 86140; 86481; 86704; 86706; 86709; 86803; 87340; 99212; J3300

== ENCOUNTER 2025-01-17 13:51 | Outpatient (AMB) | payer OTHER, SELFPAY ==
[2025-01-17 14:07] VITALS: BP 118/74; PULSE 81; O2SAT 97; BMI 31.5
--- NOTE | 2025-01-17 14:07 | A.OFFVIS_ITS ---
Vital Signs 01/17/25 14:07 Height 5 ft 9 in Weight 213 lb 2.992 oz BMI 31.5 BP 118/74 Blood Pressure Location Lt brachial Position Sitting Pulse 81 Pulse Source Pulse Oximeter Pulse Oximetry (%) 97 Oxygen Delivery Method Room Air Intake Visit Reasons: RA Intake Note: Patient was last seen in the office by Dr. James for RA follow up, chest pain follow up, blood work, and echocardiogram. Patient would like refills on all his Rheumatoid medications today. Mailing Jogger Required: Yes Mailing Jogger Name: Hayde [id number] Allergies prednisone Allergy (Severe, Verified 10/19/24 15:17) Blurry Vision Penicillins [PENICILLINS] Allergy (Unknown, Verified 10/19/24 15:15) RASH morphine Adverse Reaction (Verified 10/19/24 15:15) Itching leflunomide Adverse Reaction (Mild, Uncoded 10/05/24 11:09) blurry vision Medication List - Last Reconciled 01/17/25 by Brunilda Marques MD acetaminophen (Tylenol Extra Strength) 1,000 mg PO BEDTIME PRN albuterol sulfate 90 mcg/actuation 2 puffs PO Q6H PRN 30 days albuterol sulfate 90 mcg/actuation (Ventolin HFA) 2 puffs inhalation Q6H PRN 30 days ascorbic acid (vitamin C) 1 g PO Q6H cholecalciferol (vitamin D3) 50 mcg PO DAILY 90 days cyanocobalamin (vitamin B-12) 1,000 mcg PO DAILY duloxetine 30 mg PO DAILY fluticasone propionate 50 mcg/actuation (Flonase Allergy Relief) 1 spray intranasal DAILY folic acid 1 mg PO DAILY insulin syringe-needle U-100 Use once weekly with methotrexate meloxicam 15 mg PO DAILY methotrexate sodium (PF) 25 mg subcut QWEEK mv,Ca,duf-nenn-XJ-lycopene 8 mg iron- 200 mcg-600 mcg (Centrum Men) tabs PO pantoprazole 40 mg PO DAILY tofacitinib (Xeljanz) 5 mg PO BID HPI Comments Details: Patient is a 39-year-old male with depression, GERD, asthma and seropositive erosive rheumatoid arthritis here today for follow up Interval History: Patient last seen 10/19/[address] James. At that visit he reported a 1 month history of blurry vision and flashes of light involving bilateral eyes especially the left eye. 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 Recommendations from the model builder display was to stop taking prednisolone as this was the underlying cause. At that time he was not taking his Xeljanz or methotrexate and was only on Prednisone with diffuse joint pain and swelling. He was also complaining of chest pain. The plan at that time was to taper the prednisone to off and restarted Xeljanz and methotrexate. Patient states that he was able to taper off his prednisone but however noted persistent pain and swelling without any change to his symptoms while on the methotrexate and Xeljanz. He also notes increasing blood in his urine over the past few weeks and he is concerned that this may be related to the methotrexate or the Xeljanz. Rheumatologic History: ++RF+++CCP Methotrexate: 12/2018- present Humira: October 2019-January 2021-ineffective Rinvoq: January 2021-patient went to [place] in did not start the medication Enbrel: December 2021-improved symptoms patient self-stopped due to fatigue, sweating, abdominal pain, hematuria likely not related to Enbrel. Cimzia 01/2023- 04/2023 - no improvement Xeljanz started 07/2023 Lef 12/2023 DC after 2 weeks due to rashes Right knee ACL tear status post repair Current Rheumatology Medication(s): Methotrexate 25 mg sc every week Xeljanz 5 mg b.i.d. 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 Rheumatoid arthritis Arthritis Asthma Surgical History History of surgery on lower extremity Hx of exploratory laparotomy S/P ORIF (open reduction internal fixation) fracture Family History Mother Alzheimer disease Hypertension Father Hypertension Social History Household Members: None Housing: Apartment Are you a primary career technical education teacher to a significant other at home: No Do you presently have visiting nurse or other home services: No Alcohol intake: never Patient Tobacco Use Status: Never used Tobacco e-Cigarette/Vaping Use: Never Used Second Hand Smoke Exposure: No service: No Current occupational status: employed 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 Cognitive needs: Yes (cane) Hearing needs: No Vision needs: No Review of Systems Const Details: Review of Systems Constitutional: Denies fever, chills, weight loss ENT: Denies vision changes, eye pain or eye redness, dental caries, dry mouth GI: Denies nausea, vomiting, diarrhea, abdominal pain, change in BM Pulm: Denies SOB, PRESSLEY, hemoptysis, wheezing Cards: Denies chest pain, palpitations Skin: Denies Raynaud's, rash, nail changes, photosensitivity, HOSE CEMENTER: Denies headaches, weakness, paresthesias, recurrent falls MSK: as per HPI All other systems reviewed and are unremarkable except noted above Physical Exam Vital Signs: Last Vital Signs Pulse 81 01/17/25 14:07 BP 118/74 01/17/25 14:07 Pulse Ox 97 01/17/25 14:07 Oxygen Delivery Method Room Air 01/17/25 14:07 BMI result Body Mass Index 31.5 Vital signs reviewed Physical Examination CONSTITUITIONAL Patient alert and cooperative. Well appearing and in no apparent painful distress HEENT Conjunctiva and sclera clear. ?Pupils equal round and reactive to light. ?No lymphadenopathy. ? CHEST/RESPIRATORY SYSTEM Normal respiratory effort and able to speak in complete sentences. ?Clear to auscultation bilaterally. ?No crackles, rales, rhonchi, wheezes heard. CARDIAC SYSTEM Regular rate and rhythm. ?S1 and S2 heard no murmurs. ?Radial pulses intact bilaterally MSK Hands: ?Able to make a fist. Synovitis noted to the MCPs and PIPs bilaterally. Wrists: ?Reduced range of motion to bilateral wrists with fullness and tenderness to palpation. Elbows: Full range of motion. Tenderness to palpation of bilateral elbow joints.. Shoulders: Full range of motion. No tenderness, weakness, swelling, increased warmth or erythema. Knees: ?Full range of motion. ?Tenderness to palpation bilateral without effusions Ankles: Range of motion decreased secondary to pain. Left ankle with swelling and tenderness to palpation of the ankle joint proper Feet: ?Positive squeeze test bilaterally Tender points:?No tenderness to palpation of the bilateral trapezius, supraspin atus, greater trochanters, anterior costochondral junctions, bilateral gluteal areas, bilateral suboccipital muscle insertions SKIN Skin intact without rashes. Office Procedures AMB Joint Injection/Aspiration Joint Injection/Aspiration Details: Procedure was explained to the patient and consent was obtained. ? The area of interest was identified and confirmed with patient. ?This was subsequently cleaned with chlorhexidine x3. ? The area was then anesthetized using ethyl chloride spray. 40 mg Kenalog with 1 cc 1% lidocaine was injected without issue. ?Minimal to no bleeding. ?Patient tolerated procedure. Primary Site: left ankle Prep: site was prepped using aseptic technique and ethochloride spray was applied Injected: 40 mg of, Kenalog, 1% plain lidocaine and in the joint Approach Used: anterior Procedure: The patient tolerated the procedure well Coding 61229 - Medium joint Procedure code (CPT) selection complete Office Meds lidocaine (PF) 10 mg/mL (1 %) injection solution Performing Provider: Brunilda Marques MD Performing Location: [facility] [place] Administered by: Brunilda Marques MD on 01/18/25 14:29 Dose Route Admin Location Dispensed Lot Number Expiration Date [facility] Plastic Eye Technician 1 mL Infiltration left ankle 2 mL [id number] 01/23/27 13410-883-18 [facility] Kenalog 40 mg/mL suspension for injection Performing Provider: Brunilda Marques MD Performing Location: [facility] [place]ology Administered by: Brunilda Marques MD on 01/18/25 14:29 Dose Route Admin Location Dispensed Lot Number Expiration Date [facility] Plastic Eye Technician 40 mg intra-articular left ankle 1 mL [id number] 04/24/26 [address]-0 [employer] Results Reviewed Results Reviewed: Laboratory Tests 10/05/24 01/17/25 12:08 15:27 WBC 9.4 RBC 4.35 L Hgb 14.3 Hct 41.0 L Plt Count 362 ESR 13 Sodium 142 Potassium 4.2 Chloride 109 H Carbon Dioxide 28 BUN 20 H Creatinine 0.89 Total Bilirubin 0.6 AST 22 ALT 26 Alkaline Phosphatase 86 C-Reactive Protein 0.32 0.53 H Triglycerides 131 Cholesterol 150 LDL Cholesterol, Calc 90 HDL Cholesterol 34 L Immunology labs 12/23/18 12:35 Rheumatoid Factor 194.2 H Cycl Citrul Peptide IgG >250 H Infectious serologies 01/17/25 15:27 Hepatitis A IgM Ab Nonreactive Hep Bs Antigen Negative Hep Bs Antibody REACTIVE Hep B Core Total Ab Nonreactive Hepatitis C Ab (EIA) Nonreactive TB Test (T-Spot) Com Pending Assessment & Plan Assessment & Plan (1) Rheumatoid arthritis: Comment: ++RF+++CCP Methotrexate: 12/2018- present Humira: October 2019-January 2021-ineffective Rinvoq: January 2021-patient went to [place] in did not start the medication Enbrel: December 2021-improved symptoms patient self-stopped due to fatigue, sweating, abdominal pain, hematuria likely not related to Enbrel. Cimzia 01/2023- 04/2023 - no improvement Xeljanz started 07/2023 Lef 12/2023 DC after 2 weeks due to rashes Code(s): M06.9 - Rheumatoid arthritis, unspecified Category: Medical Qualifiers: Rheumatoid arthritis location: multiple sites Rheumatoid factor presence: with rheumatoid factor Qualified Code(s): M05.79 - Rheumatoid arthritis with rheumatoid factor of multiple sites without organ or systems involvement Plan: #Seropositive Erosive RA Patient is a 39-year-old male with seropositive erosive rheumatoid arthritis. This patient's rheumatoid arthritis has been very difficult to treat. Humira, Rinvoq, Enbrel, Xeljanz and leflunomide all not effective. He has significant synovitis on examination today involving his hands his wrists, ankles and elbows. Unfortunately because of his central serous chorioretinopathy he can not take oral steroids as this would worsen his eye changes and we will need to significant vision changes. The Xeljanz is not sufficient for him given his severe disease despite Xeljanz and subcutaneous methotrexate. We will stop the Xeljanz and start tocilizumab infusions at 8 milligrams/kilogram every 4 weeks. Gave a steroid injection to his ankle today for his acute pain and swelling. Plan - Tocilizumab IV 8mg/kg every 4 weeks - Stop Xeljanz - Continue methotrexate 25mg SC every week - Continue folic acid 1mg daily - s/p left ankle injection today - Labs today: CBC, CMP, ESR, CRP, hepatitis panel, T spot, lipid panel - RTC 3 months - Labs before visit: CBC, CMP, ESR, CRP, hepatitis panel, T spot, lipid panel (2) Hematuria: Code(s): R31.9 - Hematuria, unspecified Category: Medical Qualifiers: Hematuria type: unspecified type Qualified Code(s): R31.9 - Hematuria, unspecified Plan: #Hematuria Patient with new onset hematuria. It is not known that Xeljanz or methotrexate are common causes for hematuria. We will check urinalysis and send to urology for urgent follow up (3) assisted methotrexate user: Code(s): Z79.899 - Other fci (current) drug therapy Category: Medical Plan: #Long-term Current Use of Methotrexate Discussed with patient the benefits and risks of methotrexate for managing their rheumatic condition Benefits include reduced pain, reduced mortality, maintenance of remission and reduction of flares Risks include oral ulcers, photosensitivity, hepatotoxicity, hematologic toxicity, pneumonitis, flu-like symptoms (especially day after administration), nodulosis, lymphomas ? Limit alcohol and avoid Bactrim ? Monitoring: ?CBC, BMP, LFTs every 3-4 months and hepatitis serologies as needed (4) Encounter for monitoring tocilizumab therapy: Code(s): Z51.81 - Encounter for therapeutic drug level monitoring; Z79.620 - medical terminologist (current) use of immunosuppressive biologic Plan: #Long-term Use of Tocilizumab Discussed the risks and benefits of tocilizumab with the management of this patient's rheumatic condition. ? Benefits include decreased pain, improved mortality, improved quality of life Risks include LFT abnormalities, elevated triglycerides, GI perforations Contraindicated in a patient with history of diverticulitis Monitoring: ?CBC, CMP, triglycerides Plan I spent 42 minutes reviewing the record and labs, taking a history, examining the patient, discussing the treatment plan, ordering diagnostic work up and documenting in the medical record Orders: Orders Hepatitis A,B,C Profile 01/17/25 M05.79 - Rheumatoid arthritis with rheumatoid factor of multiple sites without organ or systems involvement T Spot TB Today M05.79 - Rheumatoid arthritis with rheumatoid factor of multiple sites without organ or systems involvement, Z51.81 - Encounter for therapeutic drug level monitoring, Z79.620 - medical terminologist (current) use of immunosuppressive biologic Lipid Panel 3 Months M05.79 - Rheumatoid arthritis with rheumatoid factor of multiple sites without organ or systems involvement, Z51.81 - Encounter for therapeutic drug level monitoring, Z79.620 - medical terminologist (current) use of immunosuppressive biologic AMB Joint Injection/Aspiration 01/17/25 M06.9 - Rheumatoid arthritis, unspecified Complete Blood Count Auto Diff 01/17/25 - Rheumatoid arthritis with rheumatoid factor of multiple sites without organ or systems involvement Comprehensive Met. Panel 01/17/25 - Rheumatoid arthritis with rheumatoid factor of multiple sites without organ or systems involvement C Reactive Protein 01/17/25 - Rheumatoid arthritis with rheumatoid factor of multiple sites without organ or systems involvement Erythrocyte Sedimentation Rate 01/17/25 - Rheumatoid arthritis with rheumatoid factor of multiple sites without organ or systems involvement T Spot TB 01/17/25. - Rheumatoid arthritis with rheumatoid factor of multiple sites without organ or systems involvement Lipid Panel 01/17/25. - Rheumatoid arthritis with rheumatoid factor of multiple sites without organ or systems involvement UA w Microscopic 01/17/25 - Rheumatoid arthritis with rheumatoid factor of multiple sites without organ or systems involvement Complete Blood Count Auto Diff 3 Months - Rheumatoid arthritis with rheumatoid factor of multiple sites without organ or systems involvement, Z51.81 - Encounter for therapeutic drug level monitoring, Z79.620 - assisted (current) use of immunosuppressive biologic Comprehensive Met. Panel 3 Months - Rheumatoid arthritis with rheumatoid factor of multiple sites without organ or systems involvement, Z51.81 - Encounter for therapeutic drug level monitoring, Z79.620 - medical terminologist (current) use of immunosuppressive biologic C Reactive Protein 3 Months - Rheumatoid arthritis with rheumatoid factor of multiple sites without organ or systems involvement, Z51.81 - Encounter for therapeutic drug level monitoring, Z79.620 - medical terminologist (current) use of immunosuppressive biologic Erythrocyte Sedimentation Rate 3 Months . - Rheumatoid arthritis with rheumatoid factor of multiple sites without organ or systems involvement, Z51.81 - Encounter for therapeutic drug level monitoring, Z79.620 - medical terminologist (curr ent) use of immunosuppressive biologic Hepatitis A,B,C Profile 3 Months M0 - Rheumatoid arthritis with rheumatoid factor of multiple sites without organ or systems involvement, Z51.81 - Encounter for therapeutic drug level monitoring, Z79.620 - medical terminologist (current) use of immunosuppressive biologic Referrals Urology Referral R31.9 - Hematuria, unspecified Coding Level of Care Code Est Pt Level 5 (64983) Complex EM visit Add On G2211 Diagnoses Rheumatoid arthritis involving multiple sites with positive rheumatoid factor Rheumatoid arthritis location: multiple sites Rheumatoid factor presence: with rheumatoid factor Hematuria, unspecified type R31.9 Hematuria type: unspecified type 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
== END 2025-01-17 15:08 | disposition home or self-care (01) ==
PROVIDERS: PCP Internal Medicine; Visit Provider Student in an Organized Health Care Education/Training Program
DX: M05.79 Rheumatoid arthritis with rheumatoid factor of multiple sites without organ or systems involvement (principal); R31.9 Hematuria, unspecified; Z79.899 Other long term (current) drug therapy; Z51.81 Encounter for therapeutic drug level monitoring; Z79.620 Long term (current) use of immunosuppressive biologic; M06.9 Rheumatoid arthritis, unspecified; M25.572 Pain in left ankle and joints of left foot
CPT/HCPCS: 20605; 99215

== ENCOUNTER 2025-03-14 13:27 | Outpatient (AMB) | payer OTHER, SELFPAY ==
--- OUTSIDE RECORDS SUMMARY | 2025-03-14 14:03 | XMS_ITS | Clinical Summary ---
Author Organization [address] [place] [address] [place] [phone] Phone Care Team Providers Care Patternmaker Helper Name Role Phone Arcelia Coe MD Primary Care Provider [phone] Allergies Active Allergy Reactions Criticality Noted Date Comments Penicillins 09/04/2024 Prednisone 01/29/2025 Medications cholecalciferol (VITAMIN D-3) 50 mcg (2,000 unit) capsule Take 1 capsule (2,000 Units total) by mouth 1 (one) time each day. 4 Active DULoxetine (CYMBALTA) [address] capsule TAKE 1 CAPSULE BY MOUTH EVERY NIGHT AT BEDTIME FOR SYMPTOMS OF DEPRESSION. 4 Active fluticasone propionate (FLONASE) 50 mcg/actuation nasal spray Administer 1 spray into each nostril 1 (one) time each day. 4 Active folic acid (FOLVITE) 1 mg tablet Take 1 tablet (1,000 mcg total) by mouth 1 (one) time each day. 4 Active DULoxetine (CYMBALTA) [address] capsule Take 1 capsule (20 mg total) by mouth 1 (one) time each day. 4 Active meloxicam (MOBIC) 15 mg tablet Take 1 tablet (15 mg total) by mouth 1 (one) time each day. 4 Active methotrexate 2.5 mg tablet TAKE 10 TABLETS BY MOUTH WEEKLY 4 Active methotrexate sodium 25 mg/mL solution injection 4 Active pantoprazole (PROTONIX) 40 mg EC tablet Take 1 tablet (40 mg total) by mouth 1 (one) time each day. 4 Active predniSONE (DELTASONE) 5 mg tablet TAKE 1 TABLET BY MOUTH EVERY MORNING & TAKE 1/2 TABLET EVERY EVENING Active Active Problems Problem Noted Date Diagnosed Date Recurrent right knee instability 01/29/2025 Encounters Date Type Department Care Team Description 01/29/2025 9:00 AM EDT Consult Orthopedic Surgery [facility] 160 175 [facility] 160 [place] [phone] Ba Rey MD Recurrent right knee instability (Primary Dx) 01/18/2025 6:59 PM EDT - 01/18/2025 11:59 PM EDT Hospital Encounter [facility] MRI [address] [place] [phone] Recurrent right knee instability Discharge Disposition: Home or Self Care 01/09/2025 Telephone Orthopedic Surgery [facility] 250 175 [facility] [address] [place] [phone] Matilda Torres from Last 3 Months Surgical History Surgery Date Site/Laterality Comments SHOULDER ARTHROSCOPY Left LEG SURGERY Right ABDOMINAL SURGERY Medical History Medical History Date Comments Arthritis Fibromyalgia GERD (gastroesophageal reflux disease) Social History Tobacco Use Types Packs/Day Years Used Date Smoking Tobacco: Never Assessed Sex and Gender Information Value Date Recorded Sex Assigned at Male 02/02/2025 9:29 AM EDT Legal Sex Male 11:07 AM EDT Gender Identity Male 02/02/2025 9:29 AM EDT Sexual Orientation Choose not to disclose 2024 9:29 AM EDT Obstetrics History Last Filed Vital Signs Vital Sign Reading Time Taken Comments Blood Pressure - - Pulse - - Temperature - - Respiratory Rate - - Oxygen Saturation - - Inhaled Oxygen Concentration - - Weight 96.2 kg (212 lb) 01/29/2025 8:47 AM EDT Height 175.3 cm (5' 9 ) 01/29/2025 8:47 AM EDT Body Mass Index 31.31 01/29/2025 8:47 AM EDT Plan of Treatment Upcoming Encounters Date Type Department Care Team (Latest Contact Info) Description 04/19/2025 10:00 AM EDT Hospital Encounter [facility] Main OR [address] [place] [phone] Ba Rey MD [address] [address] 04/19/2025 10:00 AM EDT - 04/19/2025 12:00 PM EDT Surgery [facility] Main OR [address] [place] [phone] Ba Rey MD [address] [address] ARTHROSCOPY RIGHT KNEE REPAIR ACL [74898 (CPT??) +2 more] 04/23/2025 1:00 PM EDT Evaluation [facility] [address] [phone] Jero Griffin, PT 05/02/2025 1:00 PM EDT Office Visit Orthopedic Surgery [facility] [address] [phone] Tereza Orellana PA [address] [address] Scheduled Procedures Name Priority Associated Diagnoses Date/Ti me ARTHROSCOPY KNEE REPAIR ACL Recurrent right knee instability 04/19/2025 10:00 AM EDT Health Maintenance Due Date Last Done Comments COVID-19 Vaccine (#1) 1988 Hepatitis B Vaccines (1 of 3 - 19+ 3-dose series) 2002 11/29/2009, 11/01/2008 Cholesterol Screening (Lipid Panel) 06/21/2024 Depression Screening 06/21/2024 HIV Screening 06/21/2024 Hepatitis C Screening 06/21/2024 Social Influencers of Health Screening 06/21/2024 DTaP,Tdap,and Td Vaccines (3 - Td or Tdap) 03/11/2028 03/11/2018, 11/29/2009 Hepatitis A Vaccines Aged Out 11/01/2008 No long er eligible based on patient's age to complete this topic Influenza Vaccine Completed 10/05/2024, 09/23/2017, 11/29/2009 HIB Vaccines Aged Out No longer eligi ble based on patient's age to complete this topic HPV Vaccines Aged Out No longer eligi ble based on patient's age to complete this topic IPV Vaccines Aged Out No longer eligi ble based on patient's age to complete this topic MMR Vaccines Aged Out No longer eligi ble based on patient's age to complete this topic Meningococcal ACWY Vaccine Aged Out N o longer eligible based on patient's age to complete this topic Meningococcal B Vaccine Aged Out No l onger eligible based on patient's age to complete this topic Pneumococcal Vaccine: Pediatrics (0 to 5 Years) and At-Risk Patients (6 to 64 Years) Aged Out No longer eligible b ased on patient's age to complete this topic RSV Immunization Patients Under 20 months Aged Out No longer eligible b ased on patient's age to complete this topic Varicella Vaccines Aged Out No longer eligible based on patient's age to complete this topic Procedures Procedure Name Priority Date/Time Associated Diagnosis Comments MR KNEE WO CONTRAST RIGHT Routine 01/18/2025 7:57 PM EDT Recurrent right knee instability from Last 3 Months Results * MR Knee wo Contrast Right (01/18/2025 7:57 PM EDT) Anatomical Region Laterality Modality Lower Extremities, Knee Right Magnetic Resonance 01/24/2025 9:56 AM EDT Impressions 01/24/2025 10:12 AM EDT Anterior cruciate ligament reconstruction with intact graft. No acute ligamentous or meniscal injury. Minimal cartilage irregularity in the patellofemoral compartment. -------- FINAL REPORT -------- Dictated By: BHAVNA BEAULIEU Dictated Date: 01/24/2025 09:56 ET Assigned Physician: BHAVNA BEAULIEU Reviewed and Electronically Signed By: BHAVNA BEAULIEU Signed Date: 01/24/2025 10:12 ET Workstation ID: [id number] Transcribed By: Self Edit Transcribed Date: 01/24/2025 09:56 ET Narrative 01/24/2025 10:12 AM EDT PROCEDURE: Right knee MRI INDICATION: Knee instability, anterior cruciate ligament surgery TECHNIQUE: Multiplanar, multisequence MRI of the right knee Without contrast. COMPARISON: ??No priors available. FINDINGS: Extensive susceptibility artifact is seen along postsurgical tibial and femoral tunnels related to prior anterior cruciate ligament reconstruction. ??Susceptibility artifact is seen along the graft at the intercondylar notch as well, limiting assessment of the graft. ??Anterior cruciate ligament graft appears intact with some graft material extending into the tibial and femoral tunnels. ?? Posterior cruciate ligament is intact. Collateral ligaments are intact. No fracture or suspicious marrow replacing lesion. Lateral meniscus is intact. ??No focal cartilage defects in the lateral compartment. Linear high signal is seen within the posterior horn of the medial meniscus without extension to an articular surface, most likely related to intrasubstance degeneration or old meniscal injury. ??No medial meniscal tear. ??No focal cartilage defects in the medial compartment. Patellofemoral alignment is within normal limits. ??Mild surface irregularity along the patellar apex and medial patellar facet articular cartilage. ??No focal full-thickness cartilage defects. ??Patellar retinacular structures are intact. Extensor mechanism is intact. Biceps femoris, iliotibial band, and popliteal tendon are intact. Medial tendons are intact. No significant joint effusion. Muscle bulk is preserved. ??No mass or fluid collection. Procedure Note Bhavna Beaulieu MD - 01/24/2025 PROCEDURE: Right knee MRI INDICATION: Knee instability, anterior cruciate ligament surgery TECHNIQUE: Multiplanar, multisequence MRI of the right knee Withoutcontrast. COMPARISON: No priors available. FINDINGS: Extensive susceptibility artifact is seen along postsurgical tibial andfemoral tunnels related to prior anterior cruciate ligamentreconstruction. Susceptibility artifact is seen along the graft at theintercondylar notch as well, limiting assessment of the graft. Anteriorcruciate ligament graft appears intact with some graft material extendinginto the tibial and femoral tunnels. Posterior cruciate ligament is intact. Collateral ligaments are intact. No fracture or suspicious marrow replacing lesion. Lateral meniscus is intact. No focal cartilage defects in the lateralcompartment. Linear high signal is seen within the posterior horn of the medialmeniscus without extension to an articular surface, most likely related tointrasubstance degeneration or old meniscal injury. No medial meniscaltear. No focal cartilage defects in the medial compartment. Patellofemoral alignment is within normal limits. Mild surfaceirregularity along the patellar apex and medial patellar facet articularcartilage. No focal full- thickness cartilage defects. Patellarretinacular structures are intact. Extensor mechanism is intact. Biceps femoris, iliotibial band, and popliteal tendon are intact. Medial tendons are intact. No significant joint effusion. Muscle bulk is preserved. No mass or fluid collection. IMPRESSION: Anterior cruciate ligament reconstruction with intact graft. No acute ligamentous or meniscal injury. Minimal cartilage irregularity in the patellofemoral compartment. -------- FINAL REPORT -------- Dictated By: BHAVNA BEAULIEU Dictated Date: 01/24/2025 09:56 ET Assigned Physician: BHAVNA BEAULIEU Reviewed and Electronically Signed By: BHAVNA BEAULIEU Signed Date: 01/24/2025 10:12 ET Workstation ID: [id number] Transcribed By: Self Edit Transcribed Date: 01/24/2025 09:56 ET us Ba Rey MD IMG MRI PROCEDURES Final Resul t from Last 3 Months Insurance , [address] [place] [id number] [place] [address] PLAN Care Teams Patternmaker Helper Relationship Specialty Start Date End Date Arcelia Coe MD PCP - General Internal Medicine 02/02/25
--- NOTE | 2025-03-14 14:23 | A.OFFVIS_ITS ---
Intake Visit Reasons: hematuria Intake Note: New Patient presents for initial visit for hematuria Urology Medications: none Blood Thinner: none Smoker: never Delivery Aide Required: Yes Accompanied by: Unknown Allergies prednisone Allergy (Severe, Verified 03/14/25 14:51) Blurry Vision Penicillins [PENICILLINS] Allergy (Unknown, Verified 03/14/25 14:51) RASH morphine Adverse Reaction (Verified 03/14/25 14:51) Itching leflunomide Adverse Reaction (Mild, Uncoded 03/14/25 14:51) blurry vision Medication List - Last Reconciled 03/14/25 by GRISELDA Segovia acetaminophen (Tylenol Extra Strength) 1,000 mg PO BEDTIME PRN albuterol sulfate 90 mcg/actuation 2 puffs PO Q6H PRN 30 days albuterol sulfate 90 mcg/actuation (Ventolin HFA) 2 puffs inhalation Q6H PRN 30 days ascorbic acid (vitamin C) 1 g PO Q6H cholecalciferol (vitamin D3) 50 mcg PO DAILY 90 days cyanocobalamin (vitamin B-12) 1,000 mcg PO DAILY duloxetine 30 mg PO DAILY 90 days fluticasone propionate 50 mcg/actuation (Flonase Allergy Relief) 1 spray intranasal DAILY folic acid 1 mg PO DAILY meloxicam 15 mg PO DAILY mv,Ca,efo-tlgz-NQ-lycopene 8 mg iron- 200 mcg-600 mcg (Centrum Men) tabs PO pantoprazole 40 mg PO DAILY HPI Comments Details: Negrito is a 39-year-old French-speaking male patient of Dr. Vega who was accompanied by his daughter. He has a past medical history of depression, lupus, GERD, febrile seizures as a child, rheumatoid arthritis, and asthma. He presents to the office today as a new patient for gross hematuria. In discussion with the patient today he reports having had 2-3 episodes of gross hematuria a few months ago and believes it was related to his injections he had started for his rheumatoid arthritis. He has since stopped taking the medication and has not noted any gross hematuria. In office urinalysis today n otes no microscopic hematuria. We did discussed at length potential causes of hematuria. We discussed gross hematuria verses microscopic hematuria. He otherwise denies any bothersome urinary issues. He denies urinary urgency, urinary frequency, incontinence, nocturia, dysuria, foul smelling urine, changes to urinary stream, flank pain, fever, and or chills. He is happy with his current voiding parameters. He denies any previous smoking history and or known workplace chemical exposure. We discussed further workup of gross hematuria to include imaging and cystoscopy. I discussed reasons for blood in the urine may include but are not limited to kidney stones, cancer in the urinary tract, BPH, kidney stone disease or inflammatory conditions of the urinary tract. I have discussed workup to include cystoscopy evaluation. Patient at this time does not wish to undergo cystoscopy however will undergo CT urogram. All questions were answered. He discusses upcoming knee surgery. He otherwise offers no other issues or concerns at this time. [facility] Medical History Mild recurrent major depression Recurrent depression Lupus anticoagulant positive GERD (gastroesophageal reflux disease) History of febrile seizure head esthetician methotrexate user Rheumatoid arthritis Arthritis Asthma Surgical History History of surgery on lower extremity Hx of exploratory laparotomy S/P ORIF (open reduction internal fixation) fracture Family History Mother Alzheimer disease Hypertension Father Hypertension Social History Household Members: None Housing: Apartment Are you a primary critical care registered nurse to a significant other at home: No Do you presently have visiting nurse or other home services: No Alcohol intake: never Patient Tobacco Use Status: Never used Tobacco e-Cigarette/Vaping Use: Never Used Second Hand Smoke Exposure: No service: No Current occupational status: employed 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 Cognitive needs: Yes (cane) Hearing needs: No Vision needs: No Review of Systems Const All systems reviewed & are unremarkable except as noted in HPI and below Physical Exam Const General: cooperative, healthy appearing, comfortable, no acute distress, well developed, alert and awake Orientation/consciousness: patient oriented x3 Limitations: ambulation with cane HEENT Head: Yes normal to inspection, Yes normocephalic and Yes atraumatic Ears: hearing grossly normal bilaterally Eyes General: appearance normal, both eyes and all related structures Neck Neck: Yes normal visual inspection and Yes trachea midline Chest Chest palpation & inspection: normal inspection of the chest Resp Effort & Inspection: normal respiratory effort and able to speak in complete sentences Cardio Rate: regular rate GI Inspection: Yes normal to inspection General: Yes no CVA tenderness Back/Spine/Pelvis Back: no CVA tenderness Skin General skin exam: no rashes or lesions noted Neuro General: patient oriented x3 Extrem General: Yes normal to inspection Psych Appearance: grossly normal and well kempt Mental Status: mental status grossly normal Speech and movement: Normal speech and movement present and Clear speech present Affect: normal affect Attitude: cooperative Thought process: Normal thought process present Thought content: Normal thought content present Insight: Fair insight present (Psych) Judgement: Fair judgement present (Psych) Results AMB Urinalysis, Automated UA Leukoctes 0 Maryanne/uL Last Edit by [employer] on 03/14/25 16:04 UA Nitrite Last Edit by [employer] on 03/14/25 16:04 UA Urobilinogen 0.2 mg/dL Last Edit by [employer] on 03/14/25 16:04 UA Protein 15 mg/dL Last Edit by [employer] on 03/14/25 16:04 UA pH 6.0 Last Edit by [employer] on 03/14/25 16:04 UA Blood 0 Josafat/uL Last Edit by [employer] on 03/14/25 16:04 UA Specific [place] 1.020 Last Edit by [employer] on 03/14/25 16:04 UA Ketone Last Edit by [employer] on 03/14/25 16:04 UA Bilirubin 0 mg/dL Last Edit by [employer] on 03/14/25 16:04 UA Glucose 0 mg/dL Last Edit by [employer] on 03/14/25 16:04 Results Reviewed Results Reviewed: Laboratory Last Values Urine pH (Auto) 6.0 03/14/25 16:03 Specific [place] (Auto) 1.020 03/14/25 16:03 Urine Protein (Auto) 15 mg/dL 03/14/25 16:03 Glucose (UA)(Auto) 0 mg/dL 03/14/25 16:03 Urine Blood (Auto) 0 Josafat/uL 03/14/25 16:03 Urine Bilirubin (Auto) 0 mg/dL 03/14/25 16:03 Urine Urobilinogen (Auto) 0.2 mg/dL 03/14/25 16:03 Leukocyte Esterase (Auto) 0 Maryanne/uL 03/14/25 16:03 Assessment & Plan Assessment & Plan (1) Hematuria: Code(s): R31.9 - Hematuria, unspecified Category: Medical Qualifiers: Hematuria type: unspecified type Qualified Code(s): R31.9 - Hematuria, unspecified Plan In office urinalysis results reviewed with the patient today; as noted above; will send for urine cytology. We discussed potential causes of hematuria as well as further workup in risks and benefits of these interventions. Will obtain CT urogram for further assessment evaluation. BUN and creatinine ordered for imaging. He reports be happy with current voiding parameters. Follow-up in 1-3 months with imaging and labs to be completed prior; or sooner with any issues, concerns, and or questions. Orders: Orders Creatinine Today R31.9 - Hematuria, unspecified CT urogram Today R31.9 - Hematuria, unspecified Urine Cytology Today R31.9 - Hematuria, unspecified AMB Urinalysis Automated Today Z13.9 - Encounter for screening, unspecified Blood Urea Nitrogen Today R31.9 - Hematuria, unspecified Patient Instructions: The patient had an opportunity to ask questions regarding the treatment plan. All questions were answered. Physical exam, labs, and imaging were discussed and reviewed in detail. As well as risks, benefits, and discussion of treatment choices. No major barriers to understanding were identified. The patient expressed understanding and agreement with the above treatment plan. The patient was made aware they should contact our office by phone for worsening of their current condition, the appearance of new symptoms, or with any questions or concerns. Compliance is encouraged with any medications and follow up testing that is ordered. It is a privilege to be allowed the opportunity to participate in? your urological care.? Again, if you have any questions or concerns If you have any questions or concerns please do not hesitate to contact me. The office is [phone]. This note is constructed using voice recognition software. While every effort has been made to ensure accuracy fountain pen turner errors may have been included. Yours sincerely, JASON Segovia-KAMRAN Coding Level of Care Code New Pt Level 3 (54295) Diagnoses Hematuria, unspecified type R31.9 Hematuria type: unspecified type
== END 2025-03-14 14:56 | disposition home or self-care (01) ==
LOC: HO.HUSH 13:28
PROVIDERS: PCP Internal Medicine; Visit Provider Nurse Practitioner Family
DX: R31.9 Hematuria, unspecified (principal); Z13.9 Encounter for screening, unspecified
CPT/HCPCS: 99203

== ENCOUNTER → 2025-03-14 13:27 | Outpatient (BNVA) | payer OTHER, SELFPAY | PROVIDERS: PCP Internal Medicine; Visit Provider Nurse Practitioner Family | DX: R31.9 Hematuria, unspecified (principal) | CPT/HCPCS: 81003; 99202 ==

== ENCOUNTER 2025-04-05 10:44 | Outpatient (AMB) | payer OTHER, SELFPAY ==
[2025-04-05 11:11] VITALS: BP 132/88; BMI 30.9
--- NOTE | 2025-04-05 11:11 | A.OFFPC_ITS ---
Vital Signs 04/05/25 11:11 Height 5 ft 9 in Weight 209 lb BMI 30.9 BP 132/88 Blood Pressure Location Lt brachial Position Sitting Intake Visit Reasons: depression Land Lease Information Clerk Required: No Accompanied by: Spouse Allergies prednisone Allergy (Severe, Verified 04/05/25 11:32) Blurry Vision Penicillins [PENICILLINS] Allergy (Unknown, Verified 04/05/25 11:32) RASH morphine Adverse Reaction (Verified 04/05/25 11:32) Itching leflunomide Adverse Reaction (Mild, Uncoded 04/05/25 11:32) blurry vision Medication List - Last Reconciled 04/05/25 by Hayde Baldwin MD acetaminophen (Tylenol Extra Strength) 1,000 mg PO BEDTIME PRN albuterol sulfate 90 mcg/actuation 2 puffs PO Q6H PRN 30 days albuterol sulfate 90 mcg/actuation (Ventolin HFA) 2 puffs inhalation Q6H PRN 30 days ascorbic acid (vitamin C) 1 g PO Q6H cholecalciferol (vitamin D3) 50 mcg PO DAILY 90 days cyanocobalamin (vitamin B-12) 1,000 mcg PO DAILY duloxetine 30 mg PO DAILY 90 days fluticasone propionate 50 mcg/actuation (Flonase Allergy Relief) 1 spray intranasal DAILY folic acid 1 mg PO DAILY meloxicam 15 mg PO DAILY methotrexate sodium mg IV mv,Ca,uyr-smls-EO-lycopene 8 mg iron- 200 mcg-600 mcg (Centrum Men) tabs PO pantoprazole 40 mg PO DAILY Tobacco use date assessed: 04/05/25 Dental Screening Dental Screen Date: 04/05/25 Did you have a dental visit in the last 12 months?: No Did you have a dental problem in the last 6 months where you did not have access to dental care?: No Was dental information given to patient?: Patient has dentist HPI HPI Comments History of Present Illness Details The patient is a 39-year-old male presenting with a follow-up visit. He has a history of rheumatoid arthritis, managed by a surgery specialist, and receives monthly methotrexate infusions. His medication regimen includes duloxetine, meloxicam, and folic acid. The patient reports insomnia, with difficulty sleeping for the past three days, achieving only one hour of sleep per night. He has not attempted any nckh-cuk-fiuqoxa sleep aids. The patient has a history of depression, which has improved with duloxetine therapy. He has allergies to prednisone, penicillin, morphine, and leflunomide, with reactions including blurry vision, rash, and itching. 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 Rheumatoid arthritis Arthritis Asthma Surgical History History of surgery on lower extremity Hx of exploratory laparotomy S/P ORIF (open reduction internal fixation) fracture Family History Mother Alzheimer disease Hypertension Father Hypertension Social History Household Members: None Housing: Apartment Are you a primary laboratory animal caretaker to a significant other at home: No Do you presently have visiting nurse or other home services: No Alcohol intake: never Patient Tobacco Use Status: Never used Tobacco e-Cigarette/Vaping Use: Never Used Second Hand Smoke Exposure: No service: No Current occupational status: unemployed Current occupation: [employer]per- right handed Cognitive needs: Yes (cane) Hearing needs: No Vision needs: Yes Questionnaire PHQ-9 Over the last 2 weeks, how often have you been bothered by any of the following problems? 1. Little interest or pleasure in doing things: not at all 2. Feeling down, depressed, or hopeless: not at all 3. Trouble falling or staying asleep, or sleeping too much: more than half the days 4. Feeling tired or having little energy: more than half the days 5. Poor appetite or overeating: not at all 6. Feeling bad about yourself - or that you are a failure or have let yourself or your family down: not at all 7. Trouble concentrating on things, such as reading the newspaper or watching television: not at all 8. Moving or speaking so slowly that other people could have noticed. Or the opposite - being so fidgety or restless that you have been moving around a lot more than usual: not at all 9. Thoughts that you would be better off or of hurting yourself in some way: not at all Total score: 4 Depression Screening Interpretation: Positive Depression Screening Follow-up: Existing condition and Follow-up Visit Requested Depression Screening Done: Yes 88701 - PHQ-9 Billing: Yes Source: Developed by Drs. Jero Sanders, Caridad Dunn, Derek Henderson and colleagues, with an educational tye from [employer]. Thrive Questionnaire Date Thrive assessed: 04/05/25 I am a: Patient What is your living situation today?: I have a place to live, but I am worried about losing it in the future Within the past 12 months, did the food you bought not last and you didn't have the money to get more?: Sometimes True Within the past 12 months, did you worry whether your food would run out before you got money to buy more?: Sometimes True Do you have trouble paying for medicines?: I choose not to answer this question Do you have trouble getting transportation to medical appointments?: No Do you have trouble paying your heating and electricity bill?: No Do you have trouble taking care of your child, family member or friend?: I choose not to answer this question Do you have trouble with day-to-day activities such as bathing, preparing meals, shopping, managing finances, etc.?: Yes Are you currently unemployed and looking for a job?: I choose not to answer this question Are you interested in more education?: I choose not to answer this question Please select the resources that you would like help with: Food Currently or been in a relationship where the following occur: I choose not to answer THRIVE Score: 3 AUDIT C Alcohol Use Questionnaire (AUDIT-C) 1. How often do you have a drink containing alcohol?: Never Total Score: 0 Score Reviewed/Action Taken: No CÉSAR-7 AMB Questionnaire CÉSAR-7 Date CÉSAR - 7 assessed: 04/05/25 Feeling nervous, anxious, or on edge: 2 = More than half the days Not being able to stop or control worryin = Not at all Worrying too much about different things: 2 = More than half the days Trouble relaxin = Not at all Being so restless that it is hard to sit still: 0 = Not at all Becoming easily annoyed or irritable: 1 = Several days Feeling afraid as if something awful might happen: 1 = Several days Total CÉSAR-7 score (0-4 normal; 5-9 mild; 10-14 moderate; 15-21 severe): 6 Source: Developed by Drs. Jero Sanders, Caridad Dunn, Derek Henderson and colleagues, with an educational tye from [employer]. CÉSAR-7 Assessment Billing CÉSAR-7 Assessment Tool: CÉSAR-7 Assessment 14531 Review of Systems Const All systems reviewed & are unremarkable except as noted in HPI and below Card Denies chest pain at rest, Denies chest pain with activity, Denies edema, Denies irregular heart rhythm, Denies claudication, Denies dyspnea, Denies dyspnea on exertion, Denies orthopnea, Denies paroxysmal nocturnal dyspnea and Denies slow heart rate Resp Denies cough, Denies dyspnea and Denies dyspnea on exertion GI Denies abdominal pain, Denies change in bowel habits, Denies excessive flatus, Denies nausea and Denies vomiting Denies urinary hesitancy, Denies urinary incontinence and Denies urinary urgency Musc Denies abnormal gait, Denies atrophy, Denies deformity and Denies limited range of motion Skin/Breast Denies bleeding lesions, Denies changing lesions and Denies rash Neuro Denies abnormal gait, Denies behavioral changes and Denies lack of coordination Psych Denies behavioral changes Physical exam (Primary Care) Vital Signs: Last Vital Signs BP 132/88 04/05/25 11:11 BMI result Body Mass Index 30.9 Tobacco/Smoking Status: Tobacco use Status Tobacco use date assessed 04/05/25 04/05/25 11:25 Patient Tobacco Use Status Never used Tobacco 04/05/25 11:25 e-Cigarette/Vaping Use Never Used 04/05/25 11:25 PHQ-9: PHQ-9 Score PHQ-9: Total score 4 04/05/25 11:35 Depression Screening Interpretation: Positive Depression Screening Follow-up: Existing condition and Follow-up Visit Requested Thrive Assessment: Date of Thrive Assessment Date Thrive assessed 04/05/25 04/05/25 11:25 Currently or been in a relationship where the following occur: I choose not to answer Resp Effort & Inspection: normal respiratory effort Auscultation: clear to auscultation bilaterally Cardio Jugular venous distension: no JVD Rate: regular rate Rhythm: regular rhythm Heart sounds: S1 normal heart sound present and S2 normal heart sound present Skin General skin exam: no rashes or lesions noted Extrem General: Yes full ROM Coding Level of Care Code Est Pt Level 4 (95455) Complex EM visit Add On G2211 Diagnoses Mild recurrent major depression F33.0 Rheumatoid arthritis M06.9 GERD (gastroesophageal reflux disease) K21.9 Low vitamin D level R79.89 Additional Codes CÉSAR-7 Assessment Billing - CÉSAR-7 Assessment Tool: CÉSAR-7 Assessment 21252 ([id number]) PHQ-9 - 20883 - PHQ-9 Billing: Yes ([id number]) Time Spent (min) 20 Assessment & Plan Assessment & Plan (1) Mild recurrent major depression: Code(s): F33.0 - Major depressive disorder, recurrent, mild Category: Medical (2) Rheumatoid arthritis: Code(s): M06.9 - Rheumatoid arthritis, unspecified Category: Medical (3) GERD (gastroesophageal reflux disease): Code(s): K21.9 - Gastro-esophageal reflux disease without esophagitis Category: Medical (4) Low vitamin D level: Code(s): R79.89 - Other specified abnormal findings of blood chemistry Category: Medical Plan The patient will maintain his current treatment plan for rheumatoid arthritis, including monthly methotrexate infusions and medications like meloxicam and folic acid. For insomnia, a trial of diclofenac cream was recommended to alleviate any related discomfort, and a sleep aid may be considered if the issue persists. The patient's depression management with duloxetine will continue, as there has been an improvement in symptoms. Allergy management involves avoiding known allergens such as prednisone, penicillin, morphine, and leflunomide. Patient was informed and verbally consented to the use of an ambient scribe for clinic note documentation during this visit. Orders: Orders Comprehensive Perry. Panel Fast 6 Months M06.9 - Rheumatoid arthritis, unspecified Vitamin B12 and Folate 6 Months E53.8 - Deficiency of other specified B group vitamins Vitamin D 25-OH Total 6 Months E55.9 - Vitamin D deficiency, unspecified Lipid Panel 6 Months E78.5 - Hyperlipidemia, unspecified Medications: New trazodone 50 mg PO BEDTIME PRN 90 tabs 1RF sleep 90 days diclofenac sodium 1% (Arthritis Pain (diclofenac)) apply to single elbow, wrist or hand; for hand includes palm/fingers/back of hand 2 grams topical QID PRN 50 grams 1RF pain 30 days
--- OUTSIDE RECORDS SUMMARY | 2025-04-05 12:37 | XMS_ITS | Clinical Summary ---
Author Organization [address] [place] [address] [place] [phone] Phone Care Team Providers Care Lpn Rn Name Role Phone Arcelia Coe MD Primary Care Provider [phone] Allergies Active Allergy Reactions Criticality Noted Date [...] & TAKE 1/2 TABLET EVERY EVENING Active albuterol HFA (PROAIR HFA ; PROVENTIL HFA ; VENTOLIN HFA) 90 mcg/actuation inhaler Inhale 2 puffs by mouth every 6 (six) hours if needed for wheezing. Active Active Problems Problem Noted Date Diagnosed Date Recurrent right knee instability 01/29/2025 Encounters Date Type Department Care Team Description 01/29/2025 9:00 AM EDT Consult Orthopedic Surgery [facility] [address] [facility] [address] [place] [phone] Ba Rey MD Recurrent right knee instability (Primary Dx) 01/18/2025 6:59 PM EDT - 01/18/2025 11:59 PM EDT Hospital Encounter [facility] MRI [address] [place] [phone] Recurrent right knee instability Discharge Disposition: Home or Self Care 01/09/2025 Telephone Orthopedic Surgery [facility] [address] [facility] [address] [place] [phone] Matilda Torres from Last 3 Months Surgical [...] Description 04/19/2025 10:00 AM EDT Hospital Encounter [facility] Main OR [address] [place] [phone] Ba Rey MD [address] [address] 04/19/2025 10:00 AM EDT - 04/19/2025 12:00 PM EDT Surgery [facility] Main OR [address] [place] [phone] Ba Rey MD [address] [address] ARTHROSCOPY RIGHT KNEE REPAIR ACL [51261 (CPT??) +2 more] 04/23/2025 1:00 PM EDT Evaluation [facility] [address] [phone] Jero Griffin, PT 05/02/2025 1:00 PM EDT Office Visit Orthopedic Surgery [facility] [address] [phone] Tereza Orellana PA [address] [address] Scheduled Procedures Name Priority Associated Diagnoses Date/Ti [...] Signed Date: 01/24/2025 10:12 ET Workstation ID: [id number] Transcribed By: Self Edit Transcribed Date: 01/24/2025 [...] Signed Date: 01/24/2025 10:12 ET Workstation ID: [id number] Transcribed By: Self Edit Transcribed Date: 01/24/2025 09:56 ET Ba Rey MD IMG MRI PROCEDURES Final Resul t from Last 3 Months Insurance , [address] [place] [id number] [facility] Care Teams Lpn Rn Relationship Specialty Start Date End Date Arcelia Coe MD [address] [place] [address] [address] [facility] [place] [address] PCP - General Internal Medicine 02/02/25
== END 2025-04-05 11:43 | disposition home or self-care (01) ==
LOC: HO.HMCH 10:45
PROVIDERS: PCP Internal Medicine; Visit Provider Internal Medicine
DX: F33.0 Major depressive disorder, recurrent, mild (principal); M06.9 Rheumatoid arthritis, unspecified; K21.9 Gastro-esophageal reflux disease without esophagitis; R79.89 Other specified abnormal findings of blood chemistry

== ENCOUNTER → 2025-04-05 10:44 | Outpatient (BNVA) | payer OTHER, SELFPAY | PROVIDERS: PCP Internal Medicine; Visit Provider Internal Medicine | DX: F33.0 Major depressive disorder, recurrent, mild (principal); M06.9 Rheumatoid arthritis, unspecified; G47.00 Insomnia, unspecified; K21.9 Gastro-esophageal reflux disease without esophagitis; R79.89 Other specified abnormal findings of blood chemistry; E53.8 Deficiency of other specified B group vitamins; E55.9 Vitamin D deficiency, unspecified; E78.5 Hyperlipidemia, unspecified; Z79.899 Other long term (current) drug therapy | CPT/HCPCS: 96127; 99212 ==

== ENCOUNTER 2025-06-12 12:59 | Outpatient (AMB) | payer OTHER, SELFPAY ==
[2025-06-12 13:07] VITALS: BP 128/64; PULSE 89; O2SAT 97; BMI 31.8
--- NOTE | 2025-06-12 13:07 | MHC.PC.OV ---
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 Accompanied by: Self / Same As Patient Allergies prednisone Allergy (Severe, Verified 06/12/25 13:35) Blurry Vision Penicillins (PENICILLINS) Allergy (Unknown, Verified 06/12/25 13:35) RASH morphine Adverse Reaction (Verified 06/12/25 13:35) Itching leflunomide Adverse Reaction (Mild, Uncoded 06/12/25 13:35) blurry vision Medication List - Last Reconciled 06/12/25 by Hayde Baldwin MD acetaminophen (Tylenol Extra Strength) 1,000 mg PO BEDTIME PRN albuterol sulfate 90 mcg/actuation 2 puffs PO Q6H PRN 30 days albuterol sulfate 90 mcg/actuation (Ventolin HFA) 2 puffs inhalation Q6H PRN 30 days ascorbic acid (vitamin C) 1 g PO Q6H cholecalciferol (vitamin D3) 50 mcg PO DAILY 90 days cyanocobalamin (vitamin B-12) 1,000 mcg PO DAILY diclofenac sodium 1% (Arthritis Pain (diclofenac)) 2 grams topical QID PRN 30 days duloxetine 30 mg PO DAILY 90 days fluticasone propionate 50 mcg/actuation (Flonase Allergy Relief) 1 spray intranasal DAILY folic acid 1 mg PO DAILY meloxicam 15 mg PO DAILY mv,Ca,zrb-rlxq-YO-lycopene 8 mg iron- 200 mcg-600 mcg (Centrum Men) tabs PO pantoprazole 40 mg PO DAILY trazodone 50 mg PO BEDTIME PRN 90 days Tobacco use date assessed: 06/12/25 Dental Screening Dental Screen Date: 06/12/25 HPI HPI Comments History of Present Illness Details The patient is a 39-year-old male presenting with multiple chronic conditions including rheumatoid arthritis, right knee osteoarthritis, anxiety and depression. The patient underwent right knee arthroscopy in March at [facility] due to loose skin in the knee, which has resulted in ongoing swelling and pain. He has been attending physical therapy but missed some sessions due to increased knee swelling and pain. The patient reports blurred vision associated with prednisone and leflunomide use, and a rash with penicillin. He is currently on duloxetine for depression, with a PHQ-9 score of 22-23, and is under the care of a psychiatrist. The patient continues to follow up with rheumatology for rheumatoid arthritis. He is undergoing tocilizumab therapy and has started methotrexate for rheumatoid arthritis. 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 Rheumatoid arthritis Arthritis Asthma Surgical History History of surgery on lower extremity Hx of exploratory laparotomy S/P ORIF (open reduction internal fixation) fracture Family History Mother Alzheimer disease Hypertension Father Hypertension Social History Household Members: None Housing: Apartment Are you a primary home health aide caregiver to a significant other at home: No Do you presently have visiting nurse or other home services: No Alcohol intake: never Patient Tobacco Use Status: Never used Tobacco e-Cigarette/Vaping Use: Never Used Second Hand Smoke Exposure: No service: No Current occupational status: unemployed 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 1. Little interest or pleasure in doing things: not at all 2. Feeling down, depressed, or hopeless: nearly every day 3. Trouble falling or staying asleep, or sleeping too much: nearly every day 4. Feeling tired or having little energy: nearly every day 5. Poor appetite or overeating: nearly every day 6. Feeling bad about yourself - or that you are a failure or have let yourself or your family down: nearly every day 7. Trouble concentrating on things, such as reading the newspaper or watching television: nearly every day 8. Moving or speaking so slowly that other people could have noticed. Or the opposite - being so fidgety or restless that you have been moving around a lot more than usual: nearly every day 9. Thoughts that you would be better off or of hurting yourself in some way: more than half the days Total score: 23 Depression Screening Interpretation: Positive (no suicidal thoughts) Depression Screening Follow-up: Existing condition, In treatment, Community Mental Health Worker F/U and Follow-up Visit Requested Depression Screening Done: Yes 30477 - PHQ-9 Billing: Yes Source: Developed by Drs. Jero Sanders, Caridad Dunn, Derek Henderson and colleagues, with an educational tye from [employer]. Thrive Questionnaire Date Thrive assessed: 06/12/25 I am a: Patient What is your living situation today?: I have a place to live, but I am worried about losing it in the future Within the past 12 months, did the food you bought not last and you didn't have the money to get more?: Sometimes True Within the past 12 months, did you worry whether your food would run out before you got money to buy more?: Sometimes True Do you have trouble paying for medicines?: No Do you have trouble getting transportation to medical appointments?: No Do you have trouble paying your heating and electricity bill?: No Do you have trouble taking care of your child, family member or friend?: Yes Do you have trouble with day-to-day activities such as bathing, preparing meals, shopping, managing finances, etc.?: Yes Are you currently unemployed and looking for a job?: No Are you interested in more education?: No Please select the resources that you would like help with: None Currently or been in a relationship where the following occur: No concerns reported THRIVE Score: 3 AUDIT C Alcohol Use Questionnaire (AUDIT-C) 1. How often do you have a drink containing alcohol?: Never 3. How often do you have six or more drinks on one occasion?: Never Total Score: 0 Score Reviewed/Action Taken: No CÉSAR-7 AMB Questionnaire CÉSAR-7 Date CÉSAR - 7 assessed: 06/12/25 Feeling nervous, anxious, or on edge: 2 = More than half the days Not being able to stop or control worryin = Nearly every day Worrying too much about different things: 3 = Nearly every day Trouble relaxin = Nearly every day Being so restless that it is hard to sit still: 3 = Nearly every day Becoming easily annoyed or irritable: 3 = Nearly every day Feeling afraid as if something awful might happen: 3 = Nearly every day Total CÉSAR-7 score (0-4 normal; 5-9 mild; 10-14 moderate; 15-21 severe): 20 Source: Developed by Drs. Jero Sanders, Caridad Dunn, Derek Henderson and colleagues, with an educational tye from [employer]. CÉSAR-7 Assessment Billing CÉSAR-7 Assessment Tool: CÉSAR-7 Assessment 21005 Review of Systems Const All systems reviewed & are unremarkable except as noted in HPI and below Card Denies chest pain at rest, Denies chest pain with activity, Denies edema, Denies irregular heart rhythm, Denies claudication, Denies dyspnea, Denies dyspnea on exertion, Denies orthopnea, Denies paroxysmal nocturnal dyspnea and Denies slow heart rate Resp Denies cough, Denies dyspnea and Denies dyspnea on exertion GI Denies abdominal pain, Denies change in bowel habits, Denies excessive flatus, Denies nausea and Denies vomiting Physical exam (Primary Care) Vital Signs: Last Vital Signs Pulse 89 06/12/25 13:07 BP 128/64 06/12/25 13:07 Pulse Ox 97 06/12/25 13:07 Oxygen Delivery Method Room Air 06/12/25 13:07 BMI result Body Mass Index 31.8 Tobacco/Smoking Status: Tobacco use Status Tobacco use date assessed 06/12/25 06/12/25 13:08 Patient Tobacco Use Status Never used Tobacco 06/12/25 13:08 e-Cigarette/Vaping Use Never Used 06/12/25 13:08 PHQ-9: PHQ-9 Score PHQ-9: Total score 23 06/12/25 13:14 Depression Screening Interpretation: Positive (no suicidal thoughts) Depression Screening Follow-up: Existing condition, In treatment, Community Mental Health Worker F/U and Follow-up Visit Requested Thrive Assessment: Date of Thrive Assessment Date Thrive assessed 06/12/25 06/12/25 13:09 Currently or been in a relationship where the following occur: No concerns reported Resp Effort & Inspection: normal respiratory effort Auscultation: clear to auscultation bilaterally Cardio Jugular venous distension: no JVD Rate: regular rate Rhythm: regular rhythm Heart sounds: S1 normal heart sound present and S2 normal heart sound present Extrem General: Yes full ROM Coding Level of Care Code Est Pt Level 4 (37166) Complex EM visit Add On G2211 Diagnoses Severe recurrent major depression F33.2 Rheumatoid arthritis involving multiple sites with positive rheumatoid factor M05.79 Rheumatoid arthritis location: multiple sites Rheumatoid factor presence: with rheumatoid factor Primary osteoarthritis of right knee M17.11 Osteoarthritis type: primary CÉSAR (generalized anxiety disorder) F41.1 Additional Codes CÉSAR-7 Assessment Billing - CÉSAR-7 Assessment Tool: CÉSAR-7 Assessment 07847 ([id number]) PHQ-9 - 11651 - PHQ-9 Billing: Yes ([id number]) Time Spent (min) 22 Assessment & Plan Assessment & Plan (1) Severe recurrent major depression: Code(s): F33.2 - Major depressive disorder, recurrent severe without psychotic features Category: Medical (2) Rheumatoid arthritis: Comment: ++RF+++CCP Methotrexate: 12/2018- present Humira: October 2019-January 2021-ineffective Rinvoq: January 2021-patient went to [place] in did not start the medication Enbrel: December 2021-improved symptoms patient self-stopped due to fatigue, sweating, abdominal pain, hematuria likely not related to Enbrel. Cimzia 01/2023-04/2023 - no improvement Xeljanz started 07/2023 Lef 12/2023 DC after 2 weeks due to rashes Code(s): M06.9 - Rheumatoid arthritis, unspecified Category: Medical Qualifiers: Rheumatoid arthritis location: multiple sites Rheumatoid factor presence: with rheumatoid factor Qualified Code(s): M05.79 - Rheumatoid arthritis with rheumatoid factor of multiple sites without organ or systems involvement (3) Osteoarthritis of right knee: Code(s): M17.11 - Unilateral primary osteoarthritis, right knee Category: Medical Qualifiers: Osteoarthritis type: primary Qualified Code(s): M17.11 - Unilateral primary osteoarthritis, right knee (4) CÉSAR (generalized anxiety disorder): Code(s): F41.1 - Generalized anxiety disorder Category: Medical Plan The patient will continue with physical therapy for the right knee to address swelling and pain post-arthroscopy. Tramadol will be prescribed for pain management until the next rheumatology appointment. The patient is advised to continue duloxetine for depression and to maintain regular follow-ups with his psychiatrist. He will continue to follow up with rheumatology for systemic lupus erythematosus and rheumatoid arthritis management, including tocilizumab therapy and methotrexate. Patient was informed and verbally consented to the use of an ambient scribe for clinic note documentation during this visit. Medications: New tramadol 50 mg PO BID PRN 60 tabs 0RF pain 30 days Changed From mv,Ca,awo-bwcf-CR-lycopene 8 mg iron- 200 mcg-600 mcg (Centrum Men) PO To mv,Ca,qli-quvw-NU-lycopene 8 mg iron- 200 mcg-600 mcg (Centrum Men) 1 tab PO DAILY 90 tabs 1RF 90 days
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
== END 2025-06-12 13:48 | disposition home or self-care (01) ==
LOC: HO.HMCH 13:00
PROVIDERS: PCP Internal Medicine; Visit Provider Internal Medicine
DX: F33.2 Major depressive disorder, recurrent severe without psychotic features (principal); M05.79 Rheumatoid arthritis with rheumatoid factor of multiple sites without organ or systems involvement; M17.11 Unilateral primary osteoarthritis, right knee; F41.1 Generalized anxiety disorder

== ENCOUNTER → 2025-06-12 12:59 | Outpatient (BNVA) | payer OTHER, SELFPAY | PROVIDERS: PCP Internal Medicine; Visit Provider Internal Medicine | DX: M17.11 Unilateral primary osteoarthritis, right knee (principal); M06.9 Rheumatoid arthritis, unspecified; F41.9 Anxiety disorder, unspecified; F33.2 Major depressive disorder, recurrent severe without psychotic features; M05.79 Rheumatoid arthritis with rheumatoid factor of multiple sites without organ or systems involvement; F41.1 Generalized anxiety disorder | CPT/HCPCS: 96127; 99212 ==

== ENCOUNTER 2025-07-24 14:48 | Outpatient (AMB) | payer OTHER, SELFPAY ==
--- NOTE | 2025-07-24 14:58 | A.OFFVIS_ITS ---
Vital Signs 07/24/25 15:09 Height 5 ft 9 in Weight 206 lb 12.697 oz BMI 30.5 BP 134/82 Blood Pressure Location Lt brachial Position Sitting Pulse Source Pulse Oximeter Pulse Oximetry (%) 97 Oxygen Delivery Method Room Air Intake Visit Reasons: RA Intake Note: Patient presents for RA follow up. Patient is requesting medication for nausea after infusion. Electronic Technologist Required: Yes Electronic Technologist Language: Trans Router Services: Electronic Technologist Offered & Declined Electronic Technologist Name: Darrell Rosado Information Interpreted: non-clinical & clinical Shaper Machine Hand: Shaper Machine Hand Present (Darrell Rosado) Accompanied by: NEWS ANCHOR Allergies prednisone Allergy (Severe, Verified 07/24/25 15:05) Blurry Vision Penicillins (PENICILLINS) Allergy (Unknown, Verified 07/24/25 15:05) RASH morphine Adverse Reaction (Verified 07/24/25 15:05) Itching leflunomide Adverse Reaction (Mild, Uncoded 06/12/25 13:35) blurry vision Medication List - Last Reconciled 07/24/25 by Brunilda Marques MD acetaminophen (Tylenol Extra Strength) 1,000 mg PO BEDTIME PRN albuterol sulfate 90 mcg/actuation (Ventolin HFA) 2 puffs inhalation Q6H PRN 30 days albuterol sulfate 90 mcg/actuation 2 puffs PO Q6H PRN 30 days ascorbic acid (vitamin C) 1 g PO Q6H cholecalciferol (vitamin D3) 50 mcg PO DAILY 90 days cyanocobalamin (vitamin B-12) 1,000 mcg PO DAILY diclofenac sodium 1% (Arthritis Pain (diclofenac)) 2 grams topical QID PRN 30 days duloxetine 30 mg PO DAILY 90 days fluticasone propionate 50 mcg/actuation (Flonase Allergy Relief) 1 spray intranasal DAILY folic acid 1 mg PO DAILY meloxicam 15 mg PO DAILY mv,Ca,kob-rhkx-QH-lycopene 8 mg iron- 200 mcg-600 mcg (Centrum Men) 1 tab PO DAILY 90 days ondansetron 8 mg PO Q8H PRN pantoprazole 40 mg PO DAILY tramadol 50 mg PO BID PRN 30 days trazodone 50 mg PO BEDTIME PRN 90 days HPI Comments Details: Patient is a 39-year-old male with depression, GERD, asthma and seropositive erosive rheumatoid arthritis here today for follow up Interval History: Patient last seen 01/17/25 with me - On methotrexate 25mg SC every week, Xeljanz 5mg bid and folic acid 1 mg daily - Able to taper off his prednisone but however noted persistent pain and swelling without any change to his symptoms while on the methotrexate and Xeljanz. - He also notes increasing blood in his urine over the past few weeks and he is concerned that this may be related to the methotrexate or the Xeljanz. - Received left ankle steroid injection - Xeljanz changed to Actemra infusions Today - On methotrexate 25mg SC every week, Actemra 8mg/kg every 4 weeks and folic acid 1 mg daily - Started Actemra 02/2025 but then held from 03/2025 - 06/2025 due to knee surgery - Methotrexate also accidentally held since his surgery as well - Saw urology for hematuria 02/2025 - Complaining of widespread joint pain since being off medication Rheumatologic History: ++RF+++CCP Methotrexate: 12/2018- present Humira: October 2019-January 2021-ineffective Rinvoq: January 2021-patient went to [place] in did not start the medication Enbrel: December 2021-improved symptoms patient self-stopped due to fatigue, sweating, abdominal pain, hematuria likely not related to Enbrel. 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 Rheumatoid arthritis Arthritis Asthma Surgical History History of surgery on lower extremity Hx of exploratory laparotomy S/P ORIF (open reduction internal fixation) fracture Family History Mother Alzheimer disease Hypertension Father Hypertension Social History Household Members: None Housing: Apartment Are you a primary inspector health care facilities to a significant other at home: No Do you presently have visiting nurse or other home services: No Alcohol intake: never Patient Tobacco Use Status: Never used Tobacco e-Cigarette/Vaping Use: Never Used Second Hand Smoke Exposure: No service: No Current occupational status: unemployed 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 Cognitive needs: Yes (cane) Hearing needs: No Vision needs: Yes Review of Systems Const Details: Review of Systems Constitutional: Denies fever, chills, weight loss ENT: Denies vision changes, eye pain or eye redness, dental caries, dry mouth GI: Denies nausea, vomiting, diarrhea, abdominal pain, change in BM Pulm: Denies SOB, PRESSLEY, hemoptysis, wheezing Cards: Denies chest pain, palpitations Skin: Denies Raynaud's, rash, nail changes, photosensitivity, ENGLISH LANGUAGE LEARNER TUTOR: Denies headaches, weakness, paresthesias, recurrent falls MSK: as per HPI All other systems reviewed and are unremarkable except noted above Physical Exam Exam Exam: Vital signs reviewed Physical Examination CONSTITUITIONAL Patient alert and cooperative. Well appearing and in no apparent painful distress MSK Hands * Right Hand: Able to make a fist. Tenderness to palpation of the MCPs and PIPs * Left Hand: Able to make a fist. Tenderness to palpation of the MCPs and PIPs Wrists * Right Wrist: Decreased ROM with no swelling but TTP * Left Wrist: Decreased ROM with no swelling but TTP Elbows * Right Elbow: Full ROM. No swelling or TTP. No TTP of the medial epicondyle. No TTP of the lateral epicondyle * Left Elbow: Full ROM. No swelling or TTP. No TTP of the medial epicondyle. No TTP of the lateral epicondyle Shoulders * Right shoulder: Decreased ROM. No swelling noted. No TTP of the AC joint. No TTP of the subacromial bursa. No TTP of the posterior shoulder * Left shoulder: Decreased ROM. No swelling noted. No TTP of the AC joint. No TTP of the subacromial bursa. No TTP of the posterior shoulder Knees * Right knee: Full ROM. No swelling noted. TTP of the knee joint line. No TTP of pes anserine bursa * Left knee: Full ROM. No swelling noted. TTP of the knee joint line. No TTP of pes anserine bursa. Ankles * Right ankle: Good ankle dorsiflexion and plantar flexion. No swelling. TTP of the ankle joint * Left ankle: Good ankle dorsiflexion and plantar flexion. No swelling. TTP of the ankle joint Feet * Right foot: Negative squeeze test * Left foot: Negative squeeze test Tender points? * No tenderness to palpation of the bilateral trapezius, supraspinatus, anterior costochondral junctions, bilateral suboccipital muscle insertions SKIN No rashes Vital Signs: Last Vital Signs BP 134/82 07/24/25 15:09 Pulse Ox 97 07/24/25 15:09 Oxygen Delivery Method Room Air 07/24/25 15:09 BMI result Body Mass Index 30.5 Results Reviewed Results Reviewed: Laboratory Tests 01/17/25 07/09/25 15:27 10:07 WBC 9.5 RBC 4.81 Hgb 15.6 Hct 45.7 Plt Count 337 ESR 13 Sodium 141 Potassium 4.2 Chloride 111 H Carbon Dioxide 24 BUN 20 H Creatinine 1.01 AST 26 ALT 15 C-Reactive Protein 0.53 H Triglycerides 68 Cholesterol 137 HDL Cholesterol 39 L Immunology labs 12/23/18 12:35 Rheumatoid Factor 194.2 H Cycl Citrul Peptide IgG >250 H Infectious serologies 01/17/25 15:27 Hepatitis A IgM Ab Nonreactive Hep Bs Antigen Negative Hep Bs Antibody REACTIVE Hep B Core Total Ab Nonreactive Hepatitis C Ab (EIA) Nonreactive TB Test (T-Spot) Com Pending Assessment & Plan Assessment & Plan (1) Rheumatoid arthritis: Comment: ++RF+++CCP Methotrexate: 12/2018- present Humira: October 2019-January 2021-ineffective Rinvoq: January 2021-patient went to [place] in did not start the medication Enbrel: December 2021-improved symptoms patient self-stopped due to fatigue, sweating, abdominal pain, hematuria likely not related to Enbrel. Cimzia 01/2023- 04/2023 - no improvement Xeljanz started 07/2023 Lef 12/2023 DC after 2 weeks due to rashes Code(s): M06.9 - Rheumatoid arthritis, unspecified Category: Medical Qualifiers: Rheumatoid arthritis location: multiple sites Rheumatoid factor presence: with rheumatoid factor Qualified Code(s): M05.79 - Rheumatoid arthritis with rheumatoid factor of multiple sites without organ or systems involvement Plan: #Seropositive Erosive RA Patient is a 39-year-old male with seropositive erosive rheumatoid arthritis. This patient's rheumatoid arthritis has been very difficult to treat. Humira, Rinvoq, Enbrel, Xeljanz and leflunomide all not effective. He has significant synovitis on examination today involving his hands his wrists, ankles and elbows. 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 Limit alcohol and avoid Bactrim ? Monitoring: ?CBC, BMP, LFTs every 3-4 months and hepatitis serologies as needed (4) Encounter for monitoring tocilizumab therapy: Code(s): Z51.81 - Encounter for therapeutic drug level monitoring; Z79.620 - termite treater (current) use of immunosuppressive biologic Plan: #Long-term Use of Tocilizumab Discussed the risks and benefits of tocilizumab with the management of this patient's rheumatic condition. ? Benefits include decreased pain, improved mortality, improved quality of life Risks include LFT abnormalities, elevated triglycerides, GI perforations Contraindicated in a patient with history of diverticulitis Monitoring: ?CBC, CMP, triglycerides Plan I spent 38 minutes reviewing the record and labs, taking a history, examining the patient, discussing the treatment plan, ordering diagnostic work up and documenting in the medical record Orders: Orders Complete Blood Count Auto Diff 3 Months Z79.89 - Other terminal gauger (current) drug therapy Lipid Panel 3 Months Z. - Other senior living (current) drug therapy C Reactive Protein 3 Months Z79. - Other terminal gauger (current) drug therapy Comprehensive Met. Panel 3 Months Z. - Other terminal gauger (current) drug therapy Erythrocyte Sedimentation Rate 3 Months Z. - Other terminal gauger (current) drug therapy Hepatitis B,C Profile 3 Months Z. - Other senior living (current) drug therapy T Spot TB 3 Months Z. - Other terminal gauger (current) drug therapy Medications: New ondansetron 8 mg PO Q8H PRN 10 tabs 5RF nausea and vomiting R11.0 - Nausea Refilled folic acid 1 mg PO DAILY 90 tabs 1RF M05.79 - Rheumatoid arthritis with rheumatoid factor of multiple sites without organ or systems involvement methotrexate sodium (PF) 25 mg subcut QWEEK 4 mL 5RF M05.79 - Rheumatoid arthritis with rheumatoid factor of multiple sites without organ or systems involvement Coding Level of Care Code Est Pt Level 4 (18777) Complex EM visit Add On G2211 Diagnoses Rheumatoid arthritis involving multiple sites with positive rheumatoid factor M05.79 Rheumatoid arthritis location: multiple sites Rheumatoid factor presence: with rheumatoid factor Hematuria, unspecified type R31.9 Hematuria type: unspecified type skilled nursing methotrexate user Z79.899 Encounter for monitoring tocilizumab therapy Z51.81; Z79.620
[2025-07-24 15:09] VITALS: BP 134/82; O2SAT 97; BMI 30.5
--- OUTSIDE RECORDS SUMMARY | 2025-07-24 16:10 | XMS_ITS | Clinical Summary ---
Author Organization [address] [facility] Address [address] [place] [address] Phone Care Team Providers Care Management Advisor Name Role Phone Arcelia Coe MD Primary Care Provider [phone] Allergies Active Allergy Reactions Criticality Noted Date [...] 30 each 2 5 07/31/20 25 Active traZODone (DESYREL) 50 mg tablet Take 1 tablet (50 mg total) by mouth at bedtime as needed for sleep. Active traMADoL (ULTRAM) 50 mg tablet TAKE 1 TABLET BY MOUTH 2 TIMES A DAY NEEDED FOR PAIN FOR 30 DAYS 5 Active tocilizumab (ACTEMRA) subcutaneous injection Inject 0.9 mL (162 mg total) under the skin every 7 (seven) days. Active Active Problems Problem Noted Date Diagnosed Date Recurrent right knee instability 01/29/2025 Encounters Date Type Department Care Team Description 07/18/2025 2:00 PM EDT Office Visit Orthopedic Surgery [facility] [address] [address] Tereza Orellana PA S/P reconstruction of ACL of right knee using combined quadriceps autograft and lateral extra-articular tenodesis (Primary Dx) 07/18/2025 1:00 PM EDT Treatment [address] [phone] Spencer Chan, HEARING AID ASSISTANT Recurrent right knee instability (Primary Dx) 07/11/2025 1:00 PM EDT Treatment [address] [phone] Spencer Chan, HEARING AID ASSISTANT Recurrent right knee instability (Primary Dx) 07/04/2025 1:15 PM EDT Treatment [address] [address] Spencer Chan, HEARING AID ASSISTANT Recurrent right knee instability (Primary Dx) 06/27/2025 1:00 PM EDT Treatment [address] [phone] Gil Lackey, HEARING AID ASSISTANT Recurrent right knee instability (Primary Dx) 06/13/2025 1:00 PM EDT Treatment [facility] [address] [phone] Spencer Chan, HEARING AID ASSISTANT Recurrent right knee instability (Primary Dx) 05/30/2025 1:00 PM EDT Treatment [address] [address] Spencer Chan, HEARING AID ASSISTANT Recurrent right knee instability (Primary Dx) 05/23/2025 1:30 PM EDT Treatment [address] [phone] Raji Dempsey, HEARING AID ASSISTANT Recurrent right knee instability (Primary Dx) 05/16/2025 1:00 PM EDT Treatment [address] [address] Raji Dempsey, HEARING AID ASSISTANT Recurrent right knee instability (Primary Dx) 05/02/2025 1:00 PM EDT Office Visit Orthopedic Surgery [facility] 160 175 [facility] [address] [place] [address] Tereza Orellana PA Post-operative state (Primary Dx); S/P reconstruction of ACL of right knee using combined quadriceps autograft and lateral extra-articular tenodesis 04/23/2025 1:00 PM EDT Evaluation [address] [address] Jero Griffin, PT Recurrent right knee instability from Last 3 Months Surgical History Surgery [...] Safety Answer Date Record ed Physical Abuse Unrecognized value 04/19/2025 Verbal Abuse Unrecognized value 04/19/2025 Sex and Gender Information Value Date [...] Care Team (Late st Contact Info) Description 07/25/2025 1:00 PM EDT Treatment [facility] [address] [phone] Spencer Chan PTA 08/01/2025 1:15 PM EDT Treatment [facility] [address] [phone] Jero Griffin, NIGEL 10/31/2025 2:30 PM EST Office Visit Orthopedic Surgery [facility] 160 175 [facility] [address] [place] [phone] Tereza Orellana PA [address] [address] Health Maintenance Due Date Last Done Comments Hepatitis B Vaccines (1 of 3 - 19+ 3-dose series) 2002 11/29/2009, 11/01/2008 HPV Vaccines (1 - 3-dose SCD M series) 2010 Cholesterol Screening (Lipid Panel) 06/21/2024 HIV Screening 06/21/2024 Hepatitis C Screening 06/21/2024 Social Influencers of Health Screening 06/21/2024 Depression Screening 10/25/2024 COVID-19 Vaccine (1 - 2023-2 5 season) 2025 Influenza Vaccine (#1) 2025 , 09/23/2017, 11/29/2009 DTaP,Tdap,and Td Vaccines (3 - Td or Tdap) 03/11/2028 03/11/2018, 11/29/2009 RSV Immunization Adult Patients (1 - 1-dose 75+ series) 2058 Hepatitis A Vaccines Aged Out 11/01/2008 No [...] than 3/.10 Medical Devices Implanted Type Area Glove Turner Device Identifier Shelf Expiration Date Model / Serial / Lot [place] Sut Fibertag Tightrope Ii - Sn/A - [id number] Implanted:Qty: 1 on 04/19/2025 by Ba Rey MD at [facility] Arthroscopy Implants Sports Med Right: Knee [employer] 01/22/2030 [id number] / N/A / [id number] Footprint Ultra Pk Suture [place] 4.5 - Sn/A - [id number] Implanted:Qty: 1 on 04/19/2025 by Ba Rey MD at [facility] Arthroscopy Implants Sports Med Right: Knee [employer] - ENDOSCOPY 09/07/2029 [id number] / N/A / [id number] Kit [place] Xl Sut Qfix 1.8mm - Sn/A - [id number] Implanted:Qty: 1 on 04/19/2025 by Ba Rey MD at [facility] Arthroscopy Implants Sports Med Right: Knee [employer] - ENDOSCOPY 11/02/2027 [id number] / N/A / [id number] Interference Screw 11x35 Implanted:Qty: 1 on 04/19/2025 by Ba Rey MD at [facility] Right: Knee [employer] 12/15/2026 [id number] / N/A / [id number] Q-Fix Knotless All-Suture [place], 1.8mm, W/ One Ultrabraid Suture, Blue Implanted:Qty: 2 on 04/19/2025 by Ba Rey MD at [facility] Right: Knee [employer] 12/11/2027 [id number] / N/A / [id number] Procedures Procedure Name Priority Date/Time Associated Diagnosis Comments XR KNEE 1-2 VIEWS RIGHT Routine 05/02/2025 1:07 PM EDT Post-operative state from Last 3 Months Results * XR [...] [facility]AN IMG XR PROCEDURES Final Resul t from Last 3 Months Insurance , [address] [place] [id number] [facility] PL[facility] Advance Directives * Full Code - [...] currently active code status orders. Care Teams Management Advisor Relationship Specialty Start Date End Date Arcelia Coe MD [address] [place] [address] [address] [facility] [place] [address] PCP - General Internal Medicine 4/11/25
== END 2025-07-24 15:42 | disposition home or self-care (01) ==
LOC: HO.RHES 14:49
PROVIDERS: PCP Internal Medicine; Visit Provider Student in an Organized Health Care Education/Training Program
DX: M05.79 Rheumatoid arthritis with rheumatoid factor of multiple sites without organ or systems involvement (principal); R31.9 Hematuria, unspecified; Z79.899 Other long term (current) drug therapy; Z51.81 Encounter for therapeutic drug level monitoring; Z79.620 Long term (current) use of immunosuppressive biologic
CPT/HCPCS: 99214

== ENCOUNTER → 2025-07-24 14:48 | Outpatient (BNVA) | payer OTHER, SELFPAY | PROVIDERS: PCP Internal Medicine; Visit Provider Student in an Organized Health Care Education/Training Program | DX: M05.79 Rheumatoid arthritis with rheumatoid factor of multiple sites without organ or systems involvement (principal); R31.9 Hematuria, unspecified; Z79.899 Other long term (current) drug therapy; Z51.81 Encounter for therapeutic drug level monitoring; Z79.620 Long term (current) use of immunosuppressive biologic | CPT/HCPCS: 99212 ==

== ENCOUNTER 2025-07-27 07:55 | Outpatient (REF) | payer OTHER, SELFPAY ==
--- OUTSIDE RECORDS SUMMARY | 2025-07-25 13:00 | XMS_ITS | Encounter Summary ---
Author Organization [facility] Address [address] [place] [address] Care Team Providers Care Staff Writer Name Role Phone Arcelia Coe MD Primary Care Provider [phone] Reason for Visit * Consultation (Routine) - Authorized Specialty Diagnoses / Procedures Referred By Contdonaldo t Referred To Contact Physical Therapy Diagnoses Recurrent right knee instability Ba Rey MD 175 [facility] [address] [place] [address] Phone: tel: fax: Referral ID Status Reason Start Date Expiration Date Visits Requested Visits Authorized [id number] Authorized Specialty Services Required 01/29/2025 01/29/2026 21 21 Encounter Details Date Type Department Care Team (Late st Contact Info) Description 07/25/2025 1:00 PM EDT Treatment [facility] 175 [facility] [address] [place] [address] Spencer Chan, CLARENCE Recurrent right knee instability (Primary Dx) Social History Tobacco Use Types Packs/Day Years Used Date Smoking Tobacco: Never Smokeless Tobacco: Never Alcohol Use Standard Drinks/Week Comments Yes 0 [...] not to disclose 2024 9:29 AM EDT documented as of this encounter Progress Notes * Spencer Chan PTA - 07/25/2025 1:00 PM EDT [facility] - Outpatient PHYSICAL THERAPY DAILY TREATMENT NOTE - OP Date: 07/25/2025 Visit Number: [id number] Patient Name: Negrito Mittal : 1985 Age: 39 y.o. Gender: male Diagnosis: ICD-10-CM ICD-9-CM 1. Recurrent right knee instability M23.51 718.86 Date of Onset/Surgery: 04/23/2025 Referring Provider: Ba Rey MD Insurance: Payor: [employer] PLAN / Plan: [employer] MEDICAID / Product Type: *No Product type* / Patient Identified by: Spencer Chan PTA Language: South African Medications: Current Outpatient Medications on File Prior to Visit Medication Sig Dispense Refill albuterol HFA (PROAIR HFA ; PROVENTIL HFA ; VENTOLIN HFA) 90 mcg/actuation inhaler Inhale 2 puffs by mouth every 6 (six) hours if needed for wheezing. cefadroxil 500 mg capsule Take 1 capsule (500 mg total) by mouth 2 (two) times a day. 14 capsule 0 cholecalciferol (VITAMIN D-3) 50 mcg (2,000 unit) capsule Take 1 capsule (2,000 Units total) by mouth 1 (one) time each day. DULoxetine (CYMBALTA) [address] capsule Take 1 capsule (20 mg total) by mouth 1 (one) time each day. DULoxetine (CYMBALTA) [address] capsule TAKE 1 CAPSULE BY MOUTH EVERY NIGHT AT BEDTIME FOR SYMPTOMS OF DEPRESSION. fluticasone propionate (FLONASE) 50 mcg/actuation nasal spray Administer 1 spray into each nostril 1 (one) time each day. folic acid (FOLVITE) 1 mg tablet Take 1 tablet (1,000 mcg total) by mouth 1 (one) time each day. meloxicam (MOBIC) 15 mg tablet Take 1 tablet (15 mg total) by mouth 1 (one) time each day. 30 each 2 pantoprazole (PROTONIX) 40 mg EC tablet Take 1 tablet (40 mg total) by mouth 1 (one) time each day. tocilizumab (ACTEMRA) subcutaneous injection Inject 0.9 mL (162 mg total) under the skin every 7 (seven) days. traMADoL (ULTRAM) 50 mg tablet TAKE 1 TABLET BY MOUTH 2 TIMES A DAY NEEDED FOR PAIN FOR 30 DAYS traZODone (DESYREL) 50 mg tablet Take 1 tablet (50 mg total) by mouth at bedtime as needed for sleep. No current facility-administered medications on file prior to visit. Allergies: is allergic to prednisone, penicillins, and penicillin. Precautions: See MD protocol Fall risk: No SUBJECTIVE Subjective Report: pt reports seeing MD last week, stated everything looks ok regarding surgery. Muscles around knee are still weak, likely contributing to pain. Chart Reviewed: Yes Pain R knee 05/03 OBJECTIVE TREATMENT INTERVENTION: Protocol weeks 8-12 until jul 12 Nustep L5 x 5 mins Step ups to 6 in step with opp high knee, 2x10 Lateral stepping with purple tband at ankles x 10 feet x [address] R eccentric dips off 4 in step 2 x 10 R reverse lunge x 10 - held Shuttle B leg press with 7 cords x 5 x 3 sets Shuttle R leg press with 4 cords x 10 R single leg balance, 5 x 10 secs ea Seated HS stretch, 2 x 30 secs ea Pt deferred CP post treatment ASSESSMENT/Response to Treatment Good/ Fair Pt continues to have high pain level. Difficult to progress exs. Patient Education: Education provided: Yes. Reviewed normal gait pattern Education Provided To: Patient and Caregiver utilizing Explanation, Demonstration, and Printed Material mode(s) of education Response to Education: Verbal Understanding and Demonstrated Skills PLAN POC Development/Review: No Change in the Plan of Care; Participants: Patient and Caregiver Total Treatment Time: 30 min Modalities: Therapeutic procedures: Therapeutic Exercise Time Entry: 30 Documentation completed by Spencer Chan PTA documented in this encounter Plan of Treatment Upcoming Encounters Date Type Department Care Team (Late st Contact Info) Description 08/01/2025 1:15 PM EDT Treatment [facility] [place] 175 [facility] [address] [place] [address] Jero Griffin, PT 10/31/2025 2:30 PM EST Office Visit Orthopedic Surgery [facility] [address] [place] [phone] Tereza Orellana, TANIYA [address] [place] [address] [place] [address] documented as of this encounter Goals Goal Patient Goal Type Associated Problems [...] right knee pain no greater than 3/.10 documented as of this encounter Visit Diagnoses Diagnosis Recurrent right knee instability- Primary documented in this encounter Care Teams Staff Writer Relationship Specialty Start Date End Date Arcelia Coe MD [address] [place] [address] [address] [facility] [place] [address] PCP - General Internal Medicine 02/02/25 documented as of this encounter
--- NOTE | ~2025-07-27 | CT_ITS ---
EXAMINATION: CT ABDOMEN AND PELVIS WITHOUT AND WITH CONTRAST CLINICAL INFORMATION: R 31.9. Hematuria. COMPARISON: Correlated to renal ultrasound dated January 06, 2023. TECHNIQUE: Noncontrast CT of the abdomen and pelvis is performed followed by split bolus contrast-enhanced images using 85 mL Omnipaque 350 contrast. Postcontrast imaging is performed during the combined nephrogram and excretion phase. Sagittal and coronal reformatted images were obtained on the technologist's workstation for both the precontrast and postcontrast phases. This CT examination was performed using dose optimization techniques as appropriate, variously including the following: *Automated exposure control *Adjustment of mA and/or kV according to patient size (this includes techniques or standardized protocols for targeted exams where dose is matched to indication/reason for exam; i.e. extremities or head) *Use of iterative reconstruction technique DLP: 874 mGy centimeter. FINDINGS: LUNG BASES: Atelectasis. LIVER, GALLBLADDER, AND BILIARY TREE: Liver measures 16 cm. No focal enhancing mass. Main portal veins, hepatic veins and intrahepatic portion of the IVC are patent. Gallbladder is nondistended. No pericholecystic fluid collection or gallbladder wall thickening. No intrahepatic or extrahepatic biliary ductal dilatation. PANCREAS: No focal mass. No peripancreatic fluid collection. No main pancreatic ductal dilatation. SPLEEN: 10 cm. No focal mass. ADRENAL GLANDS: No nodular lesions. KIDNEYS AND URETERS: No hydronephrosis. No nephrolithiasis. Normal enhancement pattern of the renal parenchyma. Normal urinary excretion into the collecting system. No dilatation of the ureters. No perinephric fluid collections. Main renal vessels are patent. No gross calcified plaques in the main renal arteries. BLADDER: Partially collapsed with questionable wall thickening. Normal ureteral jets. GASTROINTESTINAL TRACT: Appendix is normal. Small hiatal hernia. Abundant stool in a nondilated large intestine. No gross diverticulum. No pneumatosis intestinalis. No ascites. No pneumoperitoneum. No intestinal obstruction pattern. ABDOMINAL WALL: Small fat-containing umbilical hernia. LYMPH NODES: No specific prominent, inguinal, and retroperitoneal lymph nodes. VASCULAR: No aneurysm or dissection, abdominal aorta. No gross calcified plaques. PELVIC VISCERA: Not enlarged prostate gland. 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 Grade 1 retrolisthesis L4-5 on a degenerative basis resulting in bilateral neuroforamina stenosis. S-shaped curvature of the lumbar spine which could be positional. No lytic or blastic lesions. Bony pelvis is intact. Coxofemoral joints are intact with normal alignment. CT/CT urogram IMPRESSION: No hydronephrosis or nephrolithiasis. No gross renal mass. Questionable urinary bladder wall thickening versus collapsed bladder. Small hiatal hernia. Small fat-containing umbilical hernia. Grade 1 anterolisthesis secondary to spondylolysis pars interarticulares at L5-S1. Electronically signed by: Adam Bryant MD 07/27/2025 09:06 AM EDT
--- OUTSIDE RECORDS SUMMARY | 2025-07-27 07:59 | XMS_ITS | Clinical Summary ---
Author Organization 175 [facility] Address 175 [place] [address] Phone Care Team Providers Care Cottrell Operator Name Role Phone Arcelia Coe MD Primary Care Provider [phone] Allergies Active Allergy Reactions Criticality Noted Date [...] Encounters Date Type Department Care Team Description 07/25/2025 1:00 PM EDT Treatment [address] [address] Spencer Chan, MEDICAL REPRESENTATIVE Recurrent right knee instability (Primary Dx) 07/18/2025 2:00 PM EDT Office Visit Orthopedic Surgery [facility] 160 175 [facility] 160 [place] [address] Tereza Orellana PA S/P reconstruction of ACL of right knee using combined quadriceps autograft and lateral extra-articular tenodesis (Primary Dx) 07/18/2025 1:00 PM EDT Treatment [address] [address] Spencer Chan, MEDICAL REPRESENTATIVE Recurrent right knee instability (Primary Dx) 07/11/2025 1:00 PM EDT Treatment [address] [address] Spencer Chan, MEDICAL REPRESENTATIVE Recurrent right knee instability (Primary Dx) 07/04/2025 1:15 PM EDT Treatment [address] [address] Spencer Chan, MEDICAL REPRESENTATIVE Recurrent right knee instability (Primary Dx) 06/27/2025 1:00 PM EDT Treatment [facility] [address] [address] Gil Lackey, MEDICAL REPRESENTATIVE Recurrent right knee instability (Primary Dx) 06/13/2025 1:00 PM EDT Treatment [address] [address] Dustin Spencer, MEDICAL REPRESENTATIVE Recurrent right knee instability (Primary Dx) 05/30/2025 1:00 PM EDT Treatment [address] [address] Dustin Spencer, MEDICAL REPRESENTATIVE Recurrent right knee instability (Primary Dx) 05/23/2025 1:30 PM EDT Treatment [address] [address] Raji Dempsey, MEDICAL REPRESENTATIVE Recurrent right knee instability (Primary Dx) 05/16/2025 1:00 PM EDT Treatment [address] [address] Raji Dempsey, MEDICAL REPRESENTATIVE Recurrent right knee instability (Primary Dx) 05/02/2025 1:00 PM EDT Office Visit Orthopedic Surgery [facility] 160 175 [facility] 160 [place] [address] Tereza Orellana PA Post-operative state (Primary Dx); S/P reconstruction of ACL of right knee using combined quadriceps autograft and lateral extra-articular tenodesis from Last 3 Months Surgical History Surgery [...] Info) Description 08/01/2025 1:15 PM EDT Treatment [facility] [place] 175 [facility] 350 [place] [address] Jero Griffin, PT 10/31/2025 2:30 PM EST Office Visit Orthopedic Surgery - [place] 160 175 [facility] 160 [place] [address] Tereza Orellana PA 175 [facility] 160 [place] [address] Health Maintenance Due Date Last Done Comments [...] than 3/.10 Medical Devices Implanted Type Area School Traffic Guard Device Identifier Shelf Expiration Date Model / Serial / Lot [place] Sut Fibertag Tightrope Ii - Sn/A - [id number] Implanted:Qty: 1 on 04/19/2025 by Ba Rey MD at [facility] Arthroscopy Implants Sports Med Right: Knee [employer] 01/22/2030 [id number] / N/A / [id number] Footprint Ultra Pk Suture [place] 4.5 - Sn/A - [id number] Implanted:Qty: 1 on 04/19/2025 by Ba Rey MD at [facility] Arthroscopy Implants Sports Med Right: Knee BROWN [employer] NEPHEW - ENDOSCOPY 09/07/2029 [id number] / N/A / [id number] Kit [place] Xl Sut Qfix 1.8mm - Sn/A - [id number] Implanted:Qty: 1 on 04/19/2025 by Ba Rey MD at [facility] Arthroscopy Implants Sports Med Right: Knee BROWN [employer] NEPHEW - ENDOSCOPY 11/02/2027 [id number] / N/A / [id number] Interference Screw 11x35 Implanted:Qty: 1 on 04/19/2025 by Ba Rey MD at [facility] Right: Knee BROWN [employer] NEPHEW 12/15/2026 [id number] / N/A / [id number] Q-Fix Knotless All-Suture [place], 1.8mm, W/ One Ultrabraid Suture, Blue Implanted:Qty: 2 on 04/19/2025 by Ba Rey MD at [facility] Right: Knee [employer]HEW 12/11/2027 [id number] / N/A / [id number] Procedures Procedure Name Priority Date/Time Associated Diagnosis [...] t from Last 3 Months Insurance , [address] [place] [address] [facility] [employer] PLAN Advance Directives * Full Code - [...] currently active code status orders. Care Teams Cottrell Operator Relationship Specialty Start Date End Date Arcelia Coe MD [address] [place] [address] Dr [address] [facility] [place] [address] PCP - General Internal Medicine 02/02/25
[2025-07-27] MEDS: iohexoL 350 MG/ML 100 ML INFUS..BTL IV (08:49)
== END 2025-07-27 07:56 | disposition home or self-care (01) ==
LOC: HO.CT 07:55
PROVIDERS: PCP Internal Medicine; Visit Provider Nurse Practitioner Family
DX: R31.9 Hematuria, unspecified (principal)
CPT/HCPCS: 74178; Q9967

== ENCOUNTER → 2025-07-27 07:57 | Outpatient (BNV) | payer OTHER, SELFPAY | PROVIDERS: PCP Internal Medicine; Visit Provider Radiology Diagnostic Radiology | DX: K44.9 Diaphragmatic hernia without obstruction or gangrene (principal); K42.9 Umbilical hernia without obstruction or gangrene | CPT/HCPCS: 74178 ==

== ENCOUNTER 2025-08-28 13:51 | Outpatient (AMB) | payer OTHER, SELFPAY ==
--- NOTE | 2025-08-28 15:01 | A.OFFVIS_ITS ---
Vital Signs 08/28/25 15:09 Height 5 ft 9 in Weight 211 lb 3.245 oz BMI 31.2 BP 142/100 H Blood Pressure Location Rt brachial Position Sitting Pulse 85 Pulse Source Pulse Oximeter Pulse Oximetry (%) 97 Oxygen Delivery Method Room Air Intake Visit Reasons: reeval medication Intake Note: Patient presents for reeval medication follow up. Housing Project Manager Required: Yes Housing Project Manager Language: Manager Rail Services: Housing Project Manager Offered & Declined Housing Project Manager Name: Rogers Addison Information Interpreted: non-clinical & clinical Lead Front End Developer: Lead Front End Developer Present (Rogers Addison) Accompanied by: Daughter Allergies prednisone Allergy (Severe, Verified 08/28/25 15:08) Blurry Vision Penicillins (PENICILLINS) Allergy (Unknown, Verified 08/28/25 15:08) RASH morphine Adverse Reaction (Verified 08/28/25 15:08) Itching leflunomide Adverse Reaction (Mild, Uncoded 06/12/25 13:35) blurry vision HPI Comments Details: Patient is a 39-year-old male with depression, GERD, asthma and seropositive erosive rheumatoid arthritis here today for follow up Interval History: Patient last seen 07/24/2025 - On methotrexate 25mg SC every week, Actemra 8mg/kg every 4 weeks and folic acid 1 mg daily - Started Actemra 02/2025 but then held from 03/2025 - 06/2025 due to knee surgery - Methotrexate also accidentally held since his surgery as well - Saw urology for hematuria 02/2025 - Complaining of widespread joint pain since being off medication Today - On methotrexate 25mg SC every week, Actemra 8mg/kg every 4 weeks and folic acid 1 mg daily - Dizziness and nausea post infusion despite pre treatment with zofran 8mg ODT - Here today to discuss medication - Only received 2 infusions Rheumatologic History: ++RF+++CCP Methotrexate: 12/2018- present Humira: October 2019-January 2021-ineffective Rinvoq: January 2021-patient went to [place] in did not start the medication Enbrel: December 2021-improved symptoms patient self-stopped due to fatigue, sweating, abdominal pain, hematuria likely not related to Enbrel. Cimzia 01/2023-04/2023 - no improvement Xeljanz started 07/2023 Lef 12/2023 DC after 2 weeks due to rashes Right knee ACL tear status post repair Current Rheumatology Medication(s): Methotrexate 25 mg SC every week Actemra 8mg/kg every 4 weeks IV Folic acid 1 mg daily PO [facility] Medical History (Updated 07/27/25 @ 13:54 by Arcelia Coe MD) Severe recurrent major depression Mild recurrent major depression Recurrent depression Lupus anticoagulant positive GERD (gastroesophageal reflux disease) History of febrile seizure manager long term care methotrexate user Rheumatoid arthritis Arthritis Asthma Surgical History History of surgery on lower extremity Hx of exploratory laparotomy S/P ORIF (open reduction internal fixation) fracture Family History Mother Alzheimer disease Hypertension Father Hypertension Social History Household Members: None Housing: Apartment Are you a primary body care manager to a significant other at home: No Do you presently have visiting nurse or other home services: No Alcohol intake: never Patient Tobacco Use Status: Never used Tobacco e-Cigarette/Vaping Use: Never Used Second Hand Smoke Exposure: No service: No Current occupational status: unemployed 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 Well appearing and in no apparent painful distress MSK Hands * Right Hand: Able to make a fist. Tenderness to palpation of the MCPs and PIPs (Better than before) * Left Hand: Able to make a fist. Tenderness to palpation of the MCPs and PIPs (Better than before) Wrists * Right Wrist: Decreased ROM with no swelling but TTP * Left Wrist: Decreased ROM with no swelling but TTP Elbows * Right Elbow: Full ROM. No swelling or TTP. No TTP of the medial epicondyle. No TTP of the lateral epicondyle * Left Elbow: Full ROM. No swelling or TTP. No TTP of the medial epicondyle. No TTP of the lateral epicondyle Shoulders * Right shoulder: Decreased ROM. No swelling noted. No TTP of the AC joint. No TTP of the subacromial bursa. No TTP of the posterior shoulder * Left shoulder: Decreased ROM. No swelling noted. No TTP of the AC joint. No TTP of the subacromial bursa. No TTP of the posterior shoulder Knees * Right knee: Full ROM. No swelling noted. TTP of the knee joint line. No TTP of pes anserine bursa. Knee brace * Left knee: Full ROM. No swelling noted. TTP of the knee joint line. No TTP of pes anserine bursa. Ankles * Right ankle: Good ankle dorsiflexion and plantar flexion. No swelling. TTP of the ankle joint * Left ankle: Good ankle dorsiflexion and plantar flexion. No swelling. TTP of the ankle joint Feet * Right foot: Positive squeeze test * Left foot: Positive squeeze test Tender points? * No tenderness to palpation of the bilateral trapezius, supraspinatus, anterior costochondral junctions, bilateral suboccipital muscle insertions SKIN No rashes Vital Signs: BMI result Body Mass Index 31.2 Results Reviewed Results Reviewed: Laboratory Tests 08/08/25 09:51 WBC 5.8 RBC 4.75 Hgb 15.3 Hct 44.8 Plt Count 207 D Sodium 140 Potassium 4.1 Chloride 109 H Carbon Dioxide 26 BUN 17 H Creatinine 1.01 AST 28 ALT 27 Laboratory Tests 01/17/25 15:27 Hepatitis A IgM Ab Nonreactive Hep Bs Antigen Negative Hep Bs Antibody REACTIVE Hep B Core Total Ab Nonreactive Hepatitis C Ab (EIA) Nonreactive TB Test (T-Spot) Com Negative Assessment & Plan Assessment & Plan (1) Rheumatoid arthritis: Comment: ++RF+++CCP Methotrexate: 12/2018- present Humira: October 2019-January 2021-ineffective Rinvoq: January 2021-patient went to [place] in did not start the medication Enbrel: December 2021-improved symptoms patient self-stopped due to fatigue, sweating, abdominal pain, hematuria likely not related to Enbrel. Cimzia 01/2023- 04/2023 - no improvement Xeljanz started 07/2023 Lef 12/2023 DC after 2 weeks due to rashes Code(s): M06.9 - Rheumatoid arthritis, unspecified Category: Medical Qualifiers: Rheumatoid arthritis location: multiple sites Rheumatoid factor presence: with rheumatoid factor Qualified Code(s): M05.79 - Rheumatoid arthritis with rheumatoid factor of multiple sites without organ or systems involvement Plan: #Seropositive Erosive RA Patient is a 39-year-old male with seropositive erosive rheumatoid arthritis. This patient's rheumatoid arthritis has been very difficult to treat. There seems to be some improvement in the degreee of his tender joints today but the side effects of the IV Actemra are prohibitory Will switch to weekly Actemra injections. 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 Methotrexate and Actemra were held and this is likely the reason Plan - Stop Actemra infusion - Start Actemra 162mg SC every week - Continue methotrexate 25mg SC every week - Continue folic acid 1mg daily - RTC 3 months - Labs before visit: CBC, CMP, ESR, CRP, lipid panel (2) Hematuria: Code(s): R31.9 - Hematuria, unspecified Category: Medical Qualifiers: Hematuria type: unspecified type Qualified Code(s): R31.9 - Hematuria, unspecified Plan: #Hematuria Resolved (3) care home methotrexate user: Code(s): Z79.899 - Other press tender long goods (current) drug therapy Category: Medical Plan: #Long-term Current Use of Methotrexate Discussed with patient the benefits and risks of methotrexate for managing their rheumatic condition Benefits include reduced pain, reduced mortality, maintenance of remission and reduction of flares Risks include oral ulcers, photosensitivity, hepatotoxicity, hematologic toxicity, pneumonitis, flu-like symptoms (especially day after administration), nodulosis, lymphomas ? Limit alcohol and avoid Bactrim ? Monitoring: ?CBC, BMP, LFTs every 3-4 months and hepatitis serologies as needed (4) Encounter for monitoring tocilizumab therapy: Code(s): Z51.81 - Encounter for therapeutic drug level monitoring; Z79.899 - Other jail (current) drug therapy Plan: #Long-term Use of Tocilizumab Discussed the risks and benefits of tocilizumab with the management of this patient's rheumatic condition. ? Benefits include decreased pain, improved mortality, improved quality of life Risks include LFT abnormalities, elevated triglycerides, GI perforations Contraindicated in a patient with history of diverticulitis Monitoring: ?CBC, CMP, triglycerides Plan I spent 30 minutes reviewing the record and labs, taking a history, examining the patient, discussing the treatment plan, ordering diagnostic work up and documenting in the medical record Coding Level of Care Code Est Pt Level 4 (63778) Complex EM visit Add On G2211 Diagnoses Rheumatoid arthritis involving multiple sites with positive rheumatoid factor M05.79 Rheumatoid arthritis location: multiple sites Rheumatoid factor presence: with rheumatoid factor Hematuria, unspecified type R31.9 Hematuria type: unspecified type care home methotrexate user Z79.899 Encounter for monitoring tocilizumab therapy Z51.81; Z79.899
[2025-08-28 15:09] VITALS: BP 142/100; PULSE 85; O2SAT 97; BMI 31.2
--- OUTSIDE RECORDS SUMMARY | 2025-08-28 16:58 | XMS_ITS | Clinical Summary ---
Author Organization 175 [facility] Address 175 [place] [address] Phone Care Team Providers Care Engine Service Repairer Name Role Phone Arcelia Coe MD Primary Care Provider [phone] Allergies Active Allergy Reactions Criticality Noted Date [...] times a day. 14 capsule 5 Active traZODone (DESYREL) 50 mg tablet Take 1 tablet (50 mg total) by mouth at bedtime as needed for sleep. Active traMADoL (ULTRAM) 50 mg tablet TAKE 1 TABLET BY MOUTH 2 TIMES A DAY NEEDED FOR PAIN FOR 30 DAYS 5 Active tocilizumab (ACTEMRA) subcutaneous injection Inject 0.9 mL (162 mg total) under the skin every 7 (seven) days. Active meloxicam (MOBIC) 15 mg tablet Take 1 tablet (15 mg total) by mouth 1 (one) time each day. 30 each 2 5 07/31/20 25 Active Problems Problem Noted Date Diagnosed Date Recurrent right knee instability 01/29/2025 Encounters Date Type Department Care Team Description 08/16/2025 2:30 PM EDT Treatment [address] [address] Jero Griffin, PT Recurrent right knee instability (Primary Dx) 07/25/2025 1:00 PM EDT Treatment [address] [phone] Spencer Chan, CLARENCE Recurrent right knee instability (Primary Dx) 07/18/2025 2:00 PM EDT Office Visit Orthopedic Surgery [facility] [address] [place] [address] 160 [place] [address] Tereza Orellana PA S/P reconstruction of ACL of right knee using combined quadriceps autograft and lateral extra-articular tenodesis (Primary Dx) 07/18/2025 1:00 PM EDT Treatment [address] [phone] Spencer Chan, CLARENCE Recurrent right knee instability (Primary Dx) 07/11/2025 1:00 PM EDT Treatment [address] [phone] Dustin Spencer, RESTAURANT LEAD Recurrent right knee instability (Primary Dx) 07/04/2025 1:15 PM EDT Treatment [address] [address] RamonmaruSpencer foster, RESTAURANT LEAD Recurrent right knee instability (Primary Dx) 06/27/2025 1:00 PM EDT Treatment [address] [address] Gil Lackey, RESTAURANT LEAD Recurrent right knee instability (Primary Dx) 06/13/2025 1:00 PM EDT Treatment [address] [address] Ramonshorty Spencer, RESTAURANT LEAD Recurrent right knee instability (Primary Dx) 05/30/2025 1:00 PM EDT Treatment [address] [address] IdrispasqualeSpencer oro, RESTAURANT LEAD Recurrent right knee instability (Primary Dx) from Last 3 Months Surgical History Surgery [...] Care Team (Late st Contact Info) Description 09/03/2025 1:15 PM EST Treatment [address] [address] Jero Griffin, PT 09/05/2025 12:30 PM EST Treatment [address] [address] Jero Griffin, PT 09/10/2025 11:30 AM EST Treatment [address] [address] Spencer Chan, RESTAURANT LEAD 09/12/2025 2:45 PM EST Treatment [address] [address] Jero Griffin, PT 09/17/2025 2:30 PM EST Treatment [address] [address] Spencer Chan, RESTAURANT LEAD 09/19/2025 2:30 PM EST Treatment [address] [address] Spencer Chan, RESTAURANT LEAD 09/24/2025 2:30 PM EST Treatment [address] [address] Spencer Chan, CLARENCE 09/26/2025 2:30 PM EST Treatment [facility] [place] [address] [place] [phone] Jero Griffin, PT 10/31/2025 2:30 PM EST Office Visit Orthopedic Surgery - [place] [address] [place] [phone] Tereza Orellana, PA [address] [place] [phone] Health Maintenance Due Date Last Done Comments [...] without AD with no right knee pain - not met Pt will ascend/descend 12 steps with no right knee pain - not met Pt will be independent with HEP- ongoing Pt will present with right knee AROM WNL - not met PT STG General No Jero Griffin, PT Note: Pt will increase right knee flexion AROM to 90 degrees - met Pt will complete 10 reps RLE SLR while maintaining right knee extension at 0 degrees - not met Pt will increase right knee flexion strength to 4/5 - met Pt will ambulate with LAD x200 ft with right knee pain no greater than 3/.10 - not met Medical Devices Implanted Type Area Heat Seal Operator Device Identifier Shelf Expiration Date Model / Serial / Lot [place] Sut Fibertag Tightrope Ii - Sn/A - [id number] Implanted:Qty: 1 on 04/19/2025 by Ba Rey MD at [facility] Arthroscopy Implants Sports Med Right: Knee [employer] 01/22/2030 AR-1588RTT 2 / N/A / [id number] Footprint Ultra Pk Suture [place] 4.5 - Sn/A - [id number] Implanted:Qty: 1 on 04/19/2025 by Ba Rey MD at [facility] Arthroscopy Implants Sports Med Right: Knee BROWN AND NEPHEW - ENDOSCOPY 09/07/2029 [id number] / N/A / [id number] Kit [place] Xl Sut Qfix 1.8mm - Sn/A - [id number] Implanted:Qty: 1 on 04/19/2025 by Ba Rey MD at [facility] Arthroscopy Implants Sports Med Right: Knee BROWN [employer] NEPHEW - ENDOSCOPY 11/02/2027 [id number] / N/A / [id number] Interference Screw 11x35 Implanted:Qty: 1 on 04/19/2025 by Ba Rey MD at [facility] Right: Knee [employer]W 12/15/2026 [id number] / N/A / [id number] Q-Fix Knotless All-Suture [place], 1.8mm, W/ One Ultrabraid Suture, Blue Implanted:Qty: 2 on 04/19/2025 by Ba Rey MD at [facility] Right: Knee [employer]W 12/11/2027 [id number] / N/A / [id number] Insurance , [address] [place] [id number] [facility] [place] [address] Advance Directives * Full Code - Default [...] currently active code status orders. Care Teams Engine Service Repairer Relationship Specialty Start Date End Date Arcelia Coe MD [address] [place] [address] [address] [facility] [place] [address] PCP - General Internal Medicine 02/02/25
== END 2025-08-28 15:40 | disposition home or self-care (01) ==
LOC: HO.RHES 13:52
PROVIDERS: PCP Internal Medicine; Visit Provider Student in an Organized Health Care Education/Training Program
DX: M05.79 Rheumatoid arthritis with rheumatoid factor of multiple sites without organ or systems involvement (principal); R31.9 Hematuria, unspecified; Z79.899 Other long term (current) drug therapy; Z51.81 Encounter for therapeutic drug level monitoring
CPT/HCPCS: 99214

== ENCOUNTER → 2025-08-28 13:51 | Outpatient (BNVA) | payer OTHER, SELFPAY | PROVIDERS: PCP Internal Medicine; Visit Provider Student in an Organized Health Care Education/Training Program | DX: M05.79 Rheumatoid arthritis with rheumatoid factor of multiple sites without organ or systems involvement (principal); R31.9 Hematuria, unspecified; Z51.81 Encounter for therapeutic drug level monitoring; Z79.620 Long term (current) use of immunosuppressive biologic | CPT/HCPCS: 99212 ==

== ENCOUNTER 2025-08-30 12:39 | Outpatient (AMB) | payer OTHER, SELFPAY ==
--- NOTE | 2025-08-30 12:41 | MHC.OFFVIS ---
Intake Visit Reasons: CT follow up Intake Note: Patient is present for CT F/U Urology Medication:VITAMIN C Antibiotic Allergy:PENICILLINS Blood Thinner:NONE Distribution Engineer Required: No Allergies prednisone Allergy (Severe, Verified 09/01/25 12:38) Blurry Vision Penicillins (PENICILLINS) Allergy (Unknown, Verified 09/01/25 12:38) RASH morphine Adverse Reaction (Verified 09/01/25 12:38) Itching leflunomide Adverse Reaction (Mild, Uncoded 09/01/25 12:38) blurry vision Medication List - Last Reconciled 09/01/25 by GRISELDA Segovia acetaminophen (Tylenol Extra Strength) 1,000 mg PO BEDTIME PRN albuterol sulfate 90 mcg/actuation (Ventolin HFA) 2 puffs inhalation Q6H PRN 30 days albuterol sulfate 90 mcg/actuation 2 puffs PO Q6H PRN 30 days ascorbic acid (vitamin C) 1 g PO Q6H cholecalciferol (vitamin D3) 50 mcg PO DAILY 90 days cyanocobalamin (vitamin B-12) 1,000 mcg PO DAILY diclofenac sodium 1% (Arthritis Pain (diclofenac)) 2 grams topical QID PRN 30 days duloxetine 30 mg PO DAILY 90 days fluticasone propionate 50 mcg/actuation (Flonase Allergy Relief) 1 spray intranasal DAILY folic acid 1 mg PO DAILY meloxicam 15 mg PO DAILY methotrexate sodium (PF) 25 mg subcut QWEEK mv,Ca,xxn-fiex-GI-lycopene 8 mg iron- 200 mcg-600 mcg (Centrum Men) 1 tab PO DAILY 90 days ondansetron 8 mg PO Q8H PRN pantoprazole 40 mg PO DAILY tocilizumab-aazg (Tyenne Autoinjector) 162 mg (0.9 mL) subcut QWEEK tramadol 50 mg PO BID PRN 30 days trazodone 50 mg PO BEDTIME PRN 90 days HPI Comments Details: Negrito is a 39-year-old Portuguese-speaking male patient of Dr. Vega who was accompanied by his family at todays office visit. He has a past medical history of depression, lupus, GERD, febrile seizures as a child, rheumatoid arthritis, and asthma. He presents to the office today for follow-up. Of note, patient was seen approximately 6 months ago as a new patient for gross hematuria at which time a CT urogram was ordered for further assessment evaluation. These results were reviewed and communicated with the patient today. 08/18 bilateral kidneys with no hydronephrosis and or nephrolithiasis. Normal enhancement pattern of renal parenchyma. Normal urinary excretion into the collecting system. The bladder is partially collapsed with questionable bladder wall thickening per radiology report. We did discussed further work to include in office cystoscopy. We did discuss risks and benefits of this intervention. He would like to continue with surveillance monitoring at this time. He reports feeling episodes of gross hematuria were related to injections he has started for his rheumatoid arthritis however this injection has since been discontinued. In office urinalysis results reviewed with the patient today. Urine cytology 03/18 Negative for high-grade urothelial carcinoma. He denies any bothersome urinary issues. He denies urinary urgency, urinary frequency, incontinence, nocturia, dysuria, foul smelling urine, changes to urinary stream, flank pain, fever, and or chills. He is happy with his current voiding parameters. He denies any previous smoking history and or known workplace chemical exposure. All questions were answered. He otherwise offers no other issues or concerns at this time. 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 Rheumatoid arthritis Arthritis Asthma Surgical History History of surgery on lower extremity Hx of exploratory laparotomy S/P ORIF (open reduction internal fixation) fracture Family History Mother Alzheimer disease Hypertension Father Hypertension Social History Household Members: None Housing: Apartment Are you a primary residential care officer to a significant other at home: No Do you presently have visiting nurse or other home services: No Alcohol intake: never Patient Tobacco Use Status: Never used Tobacco e-Cigarette/Vaping Use: Never Used Second Hand Smoke Exposure: No service: No Current occupational status: unemployed 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 Cognitive needs: Yes (cane) Hearing needs: No Vision needs: Yes Review of Systems Const All systems reviewed & are unremarkable except as noted in HPI and below Physical Exam Const General: cooperative, healthy appearing, comfortable, no acute distress, well developed, alert and awake Orientation/consciousness: patient oriented x3 Limitations: language barrier and ambulation with cane HEENT Head: Yes normal to inspection, Yes normocephalic and Yes atraumatic Ears: hearing grossly normal bilaterally Eyes General: appearance normal, both eyes and all related structures Neck Neck: Yes normal visual inspection and Yes trachea midline Chest Chest palpation & inspection: normal inspection of the chest Resp Effort & Inspection: normal respiratory effort and able to speak in complete sentences Cardio Rate: regular rate GI Inspection: Yes normal to inspection General: Yes no CVA tenderness Back/Spine/Pelvis Back: no CVA tenderness Skin General skin exam: no rashes or lesions noted Neuro General: patient oriented x3 Extrem General: Yes normal to inspection Psych Appearance: grossly normal and well kempt Mental Status: mental status grossly normal Speech and movement: Normal speech and movement present and Clear speech present Affect: normal affect Attitude: cooperative Thought process: Normal thought process present Thought content: Normal thought content present Insight: Fair insight present (Psych) Judgement: Fair judgement present (Psych) Results AMB Urinalysis, Automated UA Leukoctes 0 Maryanne/uL Last Edit by WHITNEY Butt on 08/30/25 13:03 UA Nitrite Negative Last Edit by WHITNEY Butt on 08/30/25 13:03 UA Urobilinogen 0.2 mg/dL Last Edit by WHITNEY Butt on 08/30/25 13:03 UA Protein 15 mg/dL Last Edit by WHITNEY Butt on 08/30/25 13:03 UA pH 6.0 Last Edit by WHITNEY Butt on 08/30/25 13:03 UA Blood 0 Josafat/uL Last Edit by WHITNEY Butt on 08/30/25 13:03 UA Specific Albion 1.025 Last Edit by WHITNEY Butt on 08/30/25 13:03 UA Ketone Negative Last Edit by WHITNEY Butt on 08/30/25 13:03 UA Bilirubin 0 mg/dL Last Edit by WHITNEY Butt on 08/30/25 13:03 UA Glucose 0 mg/dL Last Edit by WHITNEY Butt on 08/30/25 13:03 Results Reviewed Results Reviewed: Laboratory Last Values Urine pH (Auto) 6.0 08/30/25 13:02 Specific Albion (Auto) 1.025 08/30/25 13:02 Urine Protein (Auto) 15 mg/dL 08/30/25 13:02 Glucose (UA)(Auto) 0 mg/dL 08/30/25 13:02 Urine Ketones (Auto) Negative 08/30/25 13:02 Urine Blood (Auto) 0 Josafat/uL 08/30/25 13:02 Urine Nitrite (Auto) Negative 08/30/25 13:02 Urine Bilirubin (Auto) 0 mg/dL 08/30/25 13:02 Urine Urobilinogen (Auto) 0.2 mg/dL 08/30/25 13:02 Leukocyte Esterase (Auto) 0 Maryanne/uL 08/30/25 13:02 Ordering Physician: Parul Jernoimo Date of Service: 08/16/25 Procedure(s): US renal BI Accession Number(s): [id number] cc: Mercedes Pagan MD; Parul Jeronimo~ Reason for Exam: N20.0 - Calculus of kidney EXAMINATION: US RETROPERITONEAL LIMITED (RENAL ONLY) CLINICAL INFORMATION: Renal stones. COMPARISON: Previous renal ultrasound most recent June 2024, CT of the abdomen and pelvis December 2019 and MR of the abdomen January 2022 TECHNIQUE: Real-time imaging of the kidneys. FINDINGS: Limited exam due to body habitus. RIGHT KIDNEY: 11 x 3.1 x 3.8 cm (SAG x AP x TRV). The kidney is normal in size, contour, and echogenicity. Renal cortical thickness is normal. No calculi or focal parenchymal lesions. No hydronephrosis. LEFT KIDNEY: 11.2 x 5.6 x 4.7 cm (SAG x AP x TRV). The kidney is normal in size, contour, and echogenicity. Renal cortical thickness is normal. No calculi or focal parenchymal lesions. No hydronephrosis. US/US renal BI IMPRESSION: Limited exam due to body habitus. No stone or hydronephrosis seen.. Assessment & Plan Assessment & Plan (1) Hematuria: Code(s): R31.9 - Hematuria, unspecified Category: Medical Qualifiers: Hematuria type: unspecified type Qualified Code(s): R31.9 - Hematuria, unspecified (2) Bladder wall thickening: Code(s): N32.89 - Other specified disorders of bladder Category: Medical Plan In office urinalysis results reviewed with the patient today; as noted above. He currently denies any bothersome urinary issues or concerns. He reports be happy with current voiding parameters. Recent CT results reviewed with the patient and his family today; as noted above. Previous urine cytology results reviewed with the patient today; as noted above. We did discussed potential causes of gross hematuria as well as further intervention to include in office cystoscopy; risks and benefits were discussed All questions were answered. Will continue with surveillance monitoring at this time. Follow-up in 6 months; or sooner with any issues, concerns, and or questions. Orders: Orders AMB Urinalysis Automated 08/30/25 Z13.9 - Encounter for screening, unspecified Medications: Discontinued tocilizumab (Actemra ACTPen) Discontinued Reason: Doctor's Order 162 mg (0.9 mL) subcut QWEEK 3.6 mL 5RF M05.79 - Rheumatoid arthritis with rheumatoid factor of multiple sites without organ or systems involvement Patient Instructions: The patient had an opportunity to ask questions regarding the treatment plan. All questions were answered. Physical exam, labs, and imaging were discussed and reviewed in detail. As well as risks, benefits, and discussion of treatment choices. No major barriers to understanding were identified. The patient expressed understanding and agreement with the above treatment plan. The patient was made aware they should contact our office by phone for worsening of their current condition, the appearance of new symptoms, or with any questions or concerns. Compliance is encouraged with any medications and follow up testing that is ordered. It is a privilege to be allowed the opportunity to participate in? your urological care.? Again, if you have any questions or concerns If you have any questions or concerns please do not hesitate to contact me. The office is [phone]. This note is constructed using voice recognition software. While every effort has been made to ensure accuracy pulley mortiser operator errors may have been included. Yours sincerely, GRISELDA Segovia Coding Level of Care Code Est Pt Level 3 (73049) Diagnoses Hematuria, unspecified type R31.9 Hematuria type: unspecified type Bladder wall thickening N32.89
--- OUTSIDE RECORDS SUMMARY | 2025-08-30 15:27 | XMS_ITS | Clinical Summary ---
Author Organization [address] [facility] Address [address] [place] [address] Phone Care Team Providers Care Roto Rooter Operator Name Role Phone Arcelia Coe MD Primary Care Provider [phone] Allergies Active Allergy Reactions Criticality Noted Date [...] Team Description 08/16/2025 2:30 PM EDT Treatment [address] [phone] Jero Griffin, PT Recurrent right knee instability (Primary Dx) 07/25/2025 1:00 PM EDT Treatment [address] [phone] Spencer Chan, CLARENCE Recurrent right knee instability (Primary Dx) 07/18/2025 2:00 PM EDT Office Visit Orthopedic Surgery [facility] [address] [place] [address] [address] [place] [address] Tereza Orellana PA S/P reconstruction of ACL of right knee using combined quadriceps autograft and lateral extra-articular tenodesis (Primary Dx) 07/18/2025 1:00 PM EDT Treatment [address] [phone] Spencer Chan, CLARENCE Recurrent right knee instability (Primary Dx) 07/11/2025 1:00 PM EDT Treatment [address] [phone] Dustin Spencer, ROLLER LEVELER Recurrent right knee instability (Primary Dx) 07/04/2025 1:15 PM EDT Treatment [address] [address] RamonmaruSpencer foster, ROLLER LEVELER Recurrent right knee instability (Primary Dx) 06/27/2025 1:00 PM EDT Treatment [address] [address] Gil Lackey, ROLLER LEVELER Recurrent right knee instability (Primary Dx) 06/13/2025 1:00 PM EDT Treatment [address] [address] Ramonshorty Spencer, ROLLER LEVELER Recurrent right knee instability (Primary Dx) 05/30/2025 1:00 PM EDT Treatment [address] [address] IdrispasqualeSpencer oro, ROLLER LEVELER Recurrent right knee instability (Primary Dx) from [...] Info) Description 09/03/2025 1:15 PM EST Treatment [address] [phone] Jero Griffin, PT 09/05/2025 12:30 PM EST Treatment [address] [address] Jero Griffin, PT 09/10/2025 11:30 AM EST Treatment [address] [phone] Spencer Chan, ROLLER LEVELER 09/12/2025 2:45 PM EST Treatment [address] [address] Jero Griffin, PT 09/17/2025 2:30 PM EST Treatment [address] [phone] Spencer Chan, ROLLER LEVELER 09/19/2025 2:30 PM EST Treatment [address] [phone] Spencer Chan, ROLLER LEVELER 09/24/2025 2:30 PM EST Treatment [address] [phone] Spencer Chan, CLARENCE 09/26/2025 2:30 PM EST Treatment [facility] 175 [facility] [address] [place] [address] Jero Griffin, PT 10/31/2025 2:30 PM EST Office Visit Orthopedic Surgery - [place] [address] [place] [phone] Tereza Orellana, TANIYA [address] [facility] [address] [place] [address] Health Maintenance Due Date Last Done Comments [...] not met Medical Devices Implanted Type Area Reptile Keeper Device Identifier Shelf Expiration Date Model / Serial / Lot Cornish Sut Fibertag Tightrope Ii - Sn/A - [id number] Implanted:Qty: 1 on 04/19/2025 by Ba Rey MD at [facility] Arthroscopy Implants Sports Med Right: Knee [employer] 01/22/2030 [id number] / N/A / [id number] Footprint Ultra Pk Suture Cornish 4.5 - Sn/A - [id number] Implanted:Qty: 1 on 04/19/2025 by Ba Rey MD at [facility] Arthroscopy Implants Sports Med Right: Knee [employer]HEW - ENDOSCOPY 09/07/2029 [id number] / N/A / [id number] Kit Cornish Xl Sut Qfix 1.8mm - Sn/A - [id number] Implanted:Qty: 1 on 04/19/2025 by Ba Rey MD at [facility] Arthroscopy Implants Sports Med Right: Knee [employer]HEW - ENDOSCOPY 11/02/2027 [id number] / N/A / [id number] Interference Screw 11x35 Implanted:Qty: 1 on 04/19/2025 by Ba Rey MD at [facility] Right: Knee [employer]W 12/15/2026 [id number] / N/A / [id number] Q-Fix Knotless All-Suture Cornish, 1.8mm, W/ One Ultrabraid Suture, Blue Implanted:Qty: 2 on 04/19/2025 by Ba Rey MD at [facility] Right: Knee [employer] 12/11/2027 [id number] / N/A / [id number] Insurance , [address] [place] [id number] [facility] [employer] PLAN Advance Directives * Full Code - [...] currently active code status orders. Care Teams Roto Rooter Operator Relationship Specialty Start Date End Date Arcelia Coe MD [address] [place] [address] [address] [facility] [place] [address] PCP - General Internal Medicine 02/02/25
== END 2025-08-30 13:27 | disposition home or self-care (01) ==
LOC: HO.HUSH 12:40
PROVIDERS: PCP Internal Medicine; Visit Provider Nurse Practitioner Family
DX: Z13.9 Encounter for screening, unspecified (principal)

== ENCOUNTER → 2025-08-30 12:39 | Outpatient (BNVA) | payer OTHER, SELFPAY | PROVIDERS: PCP Internal Medicine; Visit Provider Nurse Practitioner Family | DX: Z71.2 Person consulting for explanation of examination or test findings (principal); R31.9 Hematuria, unspecified; N32.89 Other specified disorders of bladder | CPT/HCPCS: 81003; 99212 ==

== ENCOUNTER 2025-10-11 12:41 | Outpatient (AMB) | payer OTHER, SELFPAY ==
--- OUTSIDE RECORDS SUMMARY | 2025-10-09 12:30 | XMS_ITS | Encounter Summary ---
Author Organization [facility] Address [address] [place] [address] Care Team Providers Care Nuclear Waste Process Operator Name Role Phone Arcelia Coe MD Primary Care Provider [phone] Reason for Visit * Consultation (Routine) - Authorized Specialty Diagnoses / Procedures Referred By Contac t Referred To Contact Physical Therapy Diagnoses Recurrent right knee instability Ba Rey MD 175 [facility] [address] [place] [address] Phone: tel: fax: Referral ID Status Reason Start Date Expiration Date Visits Requested Visits Authorized [id number] Authorized Specialty Services Required 01/29/2025 01/29/2026 21 20 Encounter Details Date Type Department Care Team (Late st Contact Info) Description 10/09/2025 12:30 PM EST Treatment [facility] 175 [facility] [address] [place] [address] Gayatri Hernandez, PT Recurrent right knee instability (Primary Dx) Social [...] as of this encounter Progress Notes * Gayatri Hernandez, PT - 10/09/2025 12:30 PM EST [facility] - Outpatient PHYSICAL THERAPY DAILY TREATMENT NOTE - OP Date: 10/09/2025 Visit Number: [id number] Patient Name: Negrito Mittal : 1985 Age: 39 y.o. Gender: male Diagnosis: ICD-10-CM ICD-9-CM 1. Recurrent right knee instability M23.51 718.86 Date of Onset/Surgery: 04/23/2025 Referring Provider: Ba Rey MD Insurance: Payor: Savor PLAN / Plan: [employer] MEDICAID / Product Type: *No Product type* / Patient Identified by: Gaaytri Hernandez PT Language: Pt. speaks Anguillan as preferred language, however declines appeals referee Medications: Medications Ordered Prior to Encounter[1] Allergies: is allergic to prednisone, penicillins, and penicillin. Precautions: Fall risk: No SUBJECTIVE Subjective Report: Pt reports that he still has a lot of right knee pain. Pt reported that he doesn't feel like his knee is stable and always uses the cane when walking. Pt reported that he has fallen three times. Chart Reviewed: Yes Pain: right knee 8-07/04 TREATMENT INTERVENTION: Nustep, load 5, BLE, x 5 minutes Sit <-> stand from chair with Airex foam x 3, min BUE support, x 10 [HEP] Resisted side stepping L/R in parallel bars, BUE support, blue TB, 10 feet x 3 in each direction SLR, x 10, pt able to maintain 0 deg extension, however, significant effort observed R knee AROM: 0 - 118 deg R knee MMT: Flexion: 3-/5 Extension: 3-/5 SAQ over 6-inch roll, 3 x 10 on R [HEP] ASSESSMENT/Response to Treatment Fair Pt tolerated therapy session with moderate pain level which is limiting his tolerance to WB strengthening therex. Pt demonstrated R knee AROM WFL, however, continues to demonstrate R knee muscleweakness during MMT and functional mobility. Pt reporting increased sense of joint play in his R knee during therex and ambulation. Pt has a follow-up appointment with surgeon's office on Wednesday and will bring up his concerns. Pt provided with strengthening therex that he is able to perform withoutsignificant increased pain and is encouraged to continue with RLE strengthening as part of HEP. Pt to schedule follow-up PT appointments if recommended to continue per MD. Short-term goals: Pt will increase right knee flexion AROM to 90 degrees - MET Pt will complete 10 reps RLE SLR while maintaining right knee extension at 0 degrees - MET Pt will increase right knee flexion strength to 4/5 - NOT MET Pt will ambulate with LAD x200 ft with right knee pain no greater than 3/10 - NOT MET Long-term goals: Pt will ambulate x500 ft without AD with no right knee pain - NOT MET Pt will ascend/descend 12 steps with no right knee pain - NOT MET, pt reported still doing [id number] gait on stairs Pt will be independent with HEP - NOT MET, ongoing development Pt will present with right knee AROM WNL - MET Patient Education: Education provided: HEP added as described above Education Provided To: Patient utilizing Explanation, Demonstration, and Printed Material mode(s) of education Response to Education: Verbal Understanding and Demonstrated Skills PLAN POC Development/Review: Changes in the Plan of Care; Participants: Patient Pt to schedule 4 more visits for progressive RLE strengthening if MD recommends continued PT as future POC Interventions Time Entry: Modalities: Therapeutic procedures: Therapeutic Exercise Time Entry: 30 Total Treatment Time: 30 Documentation completed by Gayatri Hernandez, PT [1] Current Outpatient Medications on File Prior to [...] by mouth 1 (one) time each day. pantoprazole (PROTONIX) 40 mg EC tablet Take [...] facility-administered medications on file prior to visit. documented in this encounter Plan of Treatment Upcoming Encounters Date Type Department Care Team (Late st Contact Info) Description 10/12/2025 2:30 PM EST Office Visit Orthopedic Surgery - [place] [address] [address] [facility] [address] [place] [phone] Tereza Orellana PA [address] [facility] [address] [place] [address] documented as of this encounter Goals Goal [...] no greater than 3/.10 - not met documented as of this encounter Visit Diagnoses Diagnosis Recurrent right knee instability- Primary documented in this encounter Care Teams Nuclear Waste Process Operator Relationship Specialty Start Date End Date Arcelia Coe MD [address] [facility] [address] [facility] [place] [address] PCP - General Internal Medicine 02/02/25 documented as of this encounter
--- NOTE | 2025-10-11 12:50 | MHC.PC.OV ---
Vital Signs 10/11/25 12:51 Height 5 ft 9 in Weight 211 lb 6 oz BMI 31.2 BP 130/82 Blood Pressure Location Lt brachial Position Sitting Pulse 86 Pulse Source Pulse Oximeter Temp 97.3 F Temp Source Temporal Artery Scan Pulse Oximetry (%) 98 Oxygen Delivery Method Room Air Intake Visit Reasons: Annual Exam Intake Note: Patient is here today for a physical. Contracting Support Specialist Required: Yes Contracting Support Specialist Language: Building Construction Estimator Name: Connor (Geometrician) Information Interpreted: non-clinical & clinical (Pt decline steel layout worker service prefer dehydrogenation converter helper to translate for him) Wind Turbine Controls Engineer: Present Accompanied by: CHIEF ELECTRICIAN Allergies prednisone Allergy (Severe, Verified 10/11/25 13:06) Blurry Vision Penicillins (PENICILLINS) Allergy (Unknown, Verified 10/11/25 13:06) RASH morphine Adverse Reaction (Verified 10/11/25 13:06) Itching leflunomide Adverse Reaction (Mild, Uncoded 10/11/25 13:06) blurry vision Medication List - Last Reconciled 10/11/25 by Hayde Baldwin MD acetaminophen (Tylenol Extra Strength) 1,000 mg PO BEDTIME PRN albuterol sulfate 90 mcg/actuation (Ventolin HFA) 2 puffs inhalation Q6H PRN 30 days albuterol sulfate 90 mcg/actuation 2 puffs PO Q6H PRN 30 days ascorbic acid (vitamin C) 1 g PO Q6H cholecalciferol (vitamin D3) 50 mcg PO DAILY 90 days cyanocobalamin (vitamin B-12) 1,000 mcg PO DAILY diclofenac sodium 1% (Arthritis Pain (diclofenac)) 2 grams topical QID PRN 30 days duloxetine 30 mg PO DAILY 90 days fluticasone propionate 50 mcg/actuation (Flonase Allergy Relief) 1 spray intranasal DAILY folic acid 1 mg PO DAILY meloxicam 15 mg PO DAILY methotrexate sodium (PF) 25 mg subcut QWEEK mv,Ca,dyn-qwxj-OT-lycopene 8 mg iron- 200 mcg-600 mcg (Centrum Men) 1 tab PO DAILY 90 days ondansetron 8 mg PO Q8H PRN pantoprazole 40 mg PO DAILY tocilizumab-aazg (Tyenne Autoinjector) 162 mg (0.9 mL) subcut QWEEK tramadol 50 mg PO BID PRN 30 days trazodone 50 mg PO BEDTIME PRN 90 days Tobacco use date assessed: 10/11/25 Dental Screening Dental Screen Date: 06/12/25 HPI HPI Comments History of Present Illness Details The patient is a 39-year-old male presenting for an annual physical examination. He has a history of rheumatoid arthritis and his current medications include duloxetine 30 mg, folic acid, meloxicam, methotrexate 25 mg once a week, pantoprazole, ondansetron, tramadol, and the recently started tocilizumab once a week. He has a history of asthma, which is reported to be controlled, and he uses an albuterol inhaler as needed. He takes trazodone for sleep but reports it is not working. The patient also reports feeling as though he stops breathing while sleeping, and a sleep study that was previously scheduled was not completed due to the COVID-19 pandemic. Patient severely dozed off while watching TV, sitting and reading, lying down after lunch and as a passenger in a car with Phoenix score scale of 12. His past surgical history includes a right leg surgery, an exploratory laparotomy, and an open reduction internal fixation of a left humerus fracture in 2002. He has known allergies to prednisone, penicillin, morphine, and leflunomide, the latter of which caused blurred vision. Family history is significant for a mother with Alzheimer's disease and hypertension, and a father with hypertension. He has never smoked and does not consume alcohol. He has had his flu shot this year. [facility] Medical History (Updated 10/11/25 @ 13:25 by Hayde Baldwin MD) Mild recurrent major depression Severe recurrent major depression Recurrent depression Lupus anticoagulant positive GERD (gastroesophageal reflux disease) History of febrile seizure correction methotrexate user Rheumatoid arthritis Arthritis Asthma Surgical History History of surgery on lower extremity Hx of exploratory laparotomy S/P ORIF (open reduction internal fixation) fracture Family History Mother Alzheimer disease Hypertension Father Hypertension Social History Household Members: None Housing: Apartment Are you a primary pharmacist critical care to a significant other at home: No Do you presently have visiting nurse or other home services: No Alcohol intake: never Patient Tobacco Use Status: Never used Tobacco e-Cigarette/Vaping Use: Never Used Second Hand Smoke Exposure: No service: No Current occupational status: unemployed 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 Cognitive needs: Yes (cane) Hearing needs: No Vision needs: Yes Questionnaire Thrive Questionnaire Date Thrive assessed: 06/12/25 I am a: Patient What is your living situation today?: I have a place to live, but I am worried about losing it in the future Within the past 12 months, did the food you bought not last and you didn't have the money to get more?: Sometimes True Within the past 12 months, did you worry whether your food would run out before you got money to buy more?: Sometimes True Do you have trouble paying for medicines?: No Do you have trouble getting transportation to medical appointments?: No Do you have trouble paying your heating and electricity bill?: No Do you have trouble taking care of your child, family member or friend?: Yes Do you have trouble with day-to-day activities such as bathing, preparing meals, shopping, managing finances, etc.?: Yes Are you currently unemployed and looking for a job?: No Are you interested in more education?: No Please select the resources that you would like help with: None Currently or been in a relationship where the following occur: No concerns reported THRIVE Score: 3 CÉSAR-7 AMB Questionnaire CÉSAR-7 Date CÉSAR - 7 assessed: 06/12/25 Source: Developed by Drs. Jero Sanders, Caridad Dunn, Derek Henderson and colleagues, with an educational tye from [employer]. Review of Systems Const All systems reviewed & are unremarkable except as noted in HPI and below Card Denies chest pain at rest, Denies chest pain with activity, Denies edema, Denies irregular heart rhythm, Denies claudication, Denies dyspnea, Denies dyspnea on exertion, Denies orthopnea, Denies paroxysmal nocturnal dyspnea and Denies slow heart rate Resp Denies cough, Denies dyspnea and Denies dyspnea on exertion GI Denies abdominal pain, Denies change in bowel habits, Denies excessive flatus, Denies nausea and Denies vomiting Denies urinary hesitancy, Denies urinary incontinence and Denies urinary urgency Physical exam (Primary Care) Vital Signs: Last Vital Signs Temp 97.3 F 10/11/25 12:51 Pulse 86 10/11/25 12:51 BP 130/82 10/11/25 12:51 Pulse Ox 98 10/11/25 12:51 Oxygen Delivery Method Room Air 10/11/25 12:51 BMI result Body Mass Index 31.2 BMI Assessment/Plan discussion: High BMI High, discussed plan: lifestyle, weight reduction, dietary and physical activity Tobacco/Smoking Status: Tobacco use Status Tobacco use date assessed 10/11/25 10/11/25 13:01 Patient Tobacco Use Status Never used Tobacco 10/11/25 13:01 e-Cigarette/Vaping Use Never Used 10/11/25 13:01 Thrive Assessment: Date of Thrive Assessment Date Thrive assessed 06/12/25 10/11/25 13:01 Currently or been in a relationship where the following occur: No concerns reported HENMT Head: Yes normal to inspection, Yes normocephalic and Yes atraumatic Ears: external ears normal Eyes General: appearance normal, both eyes and all related structures Eyelids: Yes eyelids normal Conjunctivae: conjunctivae normal Neck Neck: Yes normal visual inspection and Yes supple Resp Effort & Inspection: normal respiratory effort Auscultation: clear to auscultation bilaterally Cardio Jugular venous distension: no JVD Rate: regular rate Rhythm: regular rhythm Heart sounds: S1 normal heart sound present and S2 normal heart sound present GI Inspection: Yes normal to inspection Palpation (GI): Soft to palpation and nontender Auscultation: normal bowel sounds Skin General skin exam: no rashes or lesions noted Neuro General: no focal motor deficits Extrem General: Yes full ROM Psych Appearance: grossly normal Coding Level of Care Code Est Pt Level 3 (45589) Est Pt Prev Care 40-64y(38237) Diagnoses Physical exam Z00.00 Mild recurrent major depression F33.0 Rheumatoid arthritis involving multiple sites with positive rheumatoid factor M05.79 Rheumatoid arthritis location: multiple sites Rheumatoid factor presence: with rheumatoid factor Daytime somnolence R40.0 Time Spent (min) 33 Assessment & Plan Assessment & Plan (1) Physical exam: Code(s): Z00.00 - Encounter for general adult medical examination without abnormal findings Category: Medical (2) Mild recurrent major depression: Code(s): F33.0 - Major depressive disorder, recurrent, mild Category: Medical (3) Rheumatoid arthritis: Comment: ++RF+++CCP Methotrexate: 12/2018- present Humira: October 2019-January 2021-ineffective Rinvoq: January 2021-patient went to [place] in did not start the medication Enbrel: December 2021-improved symptoms patient self-stopped due to fatigue, sweating, abdominal pain, hematuria likely not related to Enbrel. Cimzia 01/2023-04/2023 - no improvement Xeljanz started 07/2023 Lef 12/2023 DC after 2 weeks due to rashes Code(s): M06.9 - Rheumatoid arthritis, unspecified Category: Medical Qualifiers: Rheumatoid arthritis location: multiple sites Rheumatoid factor presence: with rheumatoid factor Qualified Code(s): M05.79 - Rheumatoid arthritis with rheumatoid factor of multiple sites without organ or systems involvement (4) Daytime somnolence: Code(s): R40.0 - Somnolence Category: Medical Plan Plan 1. Physical exam Repeat in a year. 2. Rheumatoid Arthritis The patient's inflammation is attributed to rheumatoid arthritis. He was advised to take meloxicam daily and apply ice for symptom management. He will continue his current disease-modifying antirheumatic drugs, including methotrexate and the recently initiated tocilizumab. 3. Insomnia The patient reports that trazodone is not effective for his sleep. The dose will be increased from 50 mg to 100 mg. 4. Daytime somnolence The patient reports experiencing episodes where he feels he stops breathing during sleep. A referral will be made for a sleep study to evaluate for sleep apnea. Orders: Orders Vitamin D 25-OH Total 6 Months E55.9 - Vitamin D deficiency, unspecified RT home sleep study Today R40.0 - Somnolence Vitamin B12 and Folate 6 Months E53.8 - Deficiency of other specified B group vitamins Thyroid Stimulating Hormone 6 Months E06.3 - Autoimmune thyroiditis Medications: New trazodone 100 mg PO BEDTIME PRN 90 tabs 0RF sleep 90 days Discontinued trazodone Discontinued Reason: Patient Completed Course 50 mg PO BEDTIME 90 days PRN 90 tabs 1RF sleep
[2025-10-11 12:51] VITALS: BP 130/82; PULSE 86; TEMP 36.3; O2SAT 98; BMI 31.2
--- OUTSIDE RECORDS SUMMARY | 2025-10-11 16:32 | XMS_ITS | Clinical Summary ---
Author Organization 175 [facility] Address [address] [place] [address] Phone Care Team Providers Care Broadcast Technician Name Role Phone Arcelia Coe MD Primary Care Provider [phone] Allergies Active Allergy Reactions Criticality Noted Date [...] 2 (two) times a day. 14 capsule Active traZODone (DESYREL) 50 mg tablet Take 1 tablet (50 mg total) by mouth at bedtime as needed for sleep. Active traMADoL (ULTRAM) 50 mg tablet TAKE 1 TABLET BY MOUTH 2 TIMES A DAY NEEDED FOR PAIN FOR 30 DAYS Active tocilizumab (ACTEMRA) subcutaneous injection Inject 0.9 mL (162 mg total) under the skin every 7 (seven) days. Active Active Problems Problem Noted Date Diagnosed Date Recurrent right knee instability 01/29/2025 Encounters Date Type Department Care Team Description 10/09/2025 12:30 PM EST Treatment [address] [phone] Gayatri Hernandez, PT Recurrent right knee instability (Primary Dx) 09/28/2025 1:00 PM EST Treatment [address] [phone] Raji Dempsey, CONFECTIONERY COOKER Recurrent right knee instability (Primary Dx) 09/26/2025 2:30 PM EST Treatment [address] [phone] Raji Dempsey, CONFECTIONERY COOKER Recurrent right knee instability (Primary Dx) 09/12/2025 2:45 PM EST Treatment [address] [address] Jero Griffin, PT Recurrent right knee instability (Primary Dx) 09/10/2025 11:30 AM EST Treatment [address] [phone] Gayarti Hernandez, PT Recurrent right knee instability (Primary Dx) 08/16/2025 2:30 PM EDT Treatment [address] [phone] Jero Griffin, PT Recurrent right knee instability (Primary Dx) 07/25/2025 1:00 PM EDT Treatment [facility] [address] [facility] [address] [place] [address] Spencer Chan, CONFECTIONERY COOKER Recurrent right knee instability (Primary Dx) 07/18/2025 2:00 PM EDT Office Visit Orthopedic Surgery [facility] [address] [facility] [address] [place] [phone] Tereza Orellana PA S/P reconstruction of ACL of right knee using combined quadriceps autograft and lateral extra-articular tenodesis (Primary Dx) 07/18/2025 1:00 PM EDT Treatment [facility] [address] [phone] Spencer Chan, CONFECTIONERY COOKER Recurrent right knee instability (Primary Dx) from [...] not to disclose 2024 9:29 AM EDT Last Filed Vital Signs Vital Sign Reading [...] PM EST Office Visit Orthopedic Surgery - [place] [address] [facility] [address] [place] [address] Tereza Orellana PA [address] [facility] [address] [place] [address] Health Maintenance Due Date Last Done Comments Hepatitis B Vaccines (1 of 3 - 19+ 3-dose series) 2002 11/29/2009, 11/01/2008 HPV Vaccines (1 - 3-dose SCD M series) 2010 Cholesterol Screening (Lipid Panel) 06/21/2024 HIV Screening 06/21/2024 Hepatitis C Screening 06/21/2024 Social Influencers of Health Screening 06/21/2024 Depression Screening 10/25/2024 COVID-19 Vaccine (1 - 2024-2 6 season) 2025 Influenza Vaccine (#1) 2025 , [...] not met Medical Devices Implanted Type Area Yard Clerk Device Identifier Shelf Expiration Date Model / Serial / Lot [place] Sut Fibertag Tightrope Ii - Sn/A - [id number] Implanted:Qty: 1 on 04/19/2025 by Ba Rey MD at [facility]opy Implants Sports Med Right: Knee [employer] 01/22/2030 [id number] / N/A / [id number] Footprint Ultra Pk Suture [place] 4.5 - Sn/A - [id number] Implanted:Qty: 1 on 04/19/2025 by Ba Rey MD at [facility] Arthroscopy Implants Sports Med Right: Knee [employer] - ENDOSCOPY 09/07/2029 [id number] / N/A / [id number] Kit [place] Xl Sut Qfix 1.8mm - Sn/A - [id number] Implanted:Qty: 1 on 04/19/2025 by Ba Rey MD at [facility] Arthroscopy Implants Sports Med Right: Knee [employer] - ENDOSCOPY 11/02/2027 [id number] / N/A / [id number] Interference Screw 11x35 Implanted:Qty: 1 on 04/19/2025 by Ba Rey MD at [facility] Right: Knee [employer] 12/15/2026 [id number] / N/A / [id number] Q-Fix Knotless All-Suture [place], 1.8mm, W/ One Ultrabraid Suture, Blue Implanted:Qty: 2 on 04/19/2025 by Ba Rey MD at [facility] Right: Knee [employer] 12/11/2027 [id number] / N/A / [id number] Insurance , [address] [place] [id number] [facility] Advance Directives * Full Code [...] currently active code status orders. Care Teams Broadcast Technician Relationship Specialty Start Date End Date Arcelia Coe MD [address] [place] [address] [address] [facility] [place] [address] PCP - General Internal Medicine 02/02/25
== END 2025-10-11 13:22 | disposition home or self-care (01) ==
LOC: HO.HMCH 12:42
PROVIDERS: PCP Internal Medicine; Visit Provider Internal Medicine
DX: Z00.00 Encounter for general adult medical examination without abnormal findings (principal); F33.0 Major depressive disorder, recurrent, mild; M05.79 Rheumatoid arthritis with rheumatoid factor of multiple sites without organ or systems involvement; R40.0 Somnolence

== ENCOUNTER → 2025-10-11 12:41 | Outpatient (BNVA) | payer OTHER, SELFPAY | PROVIDERS: PCP Internal Medicine; Visit Provider Internal Medicine | DX: Z00.00 Encounter for general adult medical examination without abnormal findings (principal); R06.9 Unspecified abnormalities of breathing; F33.0 Major depressive disorder, recurrent, mild; M05.79 Rheumatoid arthritis with rheumatoid factor of multiple sites without organ or systems involvement; R40.0 Somnolence; J45.909 Unspecified asthma, uncomplicated; E55.9 Vitamin D deficiency, unspecified; E53.8 Deficiency of other specified B group vitamins; E06.3 Autoimmune thyroiditis | CPT/HCPCS: 99212; 99396 ==